=== PATIENT | female | born 1940 | race Caucasian/White ===

== ENCOUNTER 2017-07-20 13:07 | Inpatient (IN) | payer MEDICARE, OTHER ==
[~2017-07-20] VITALS: Ht 157.5 cm; Wt 56.7 kg
[~2017-07-20 13:07] MED LIST: ADVAIR HFA115 MCG/21 INH; ADVAIR INH; ALDACTONE50 MG PO; AMBIEN 10 MG TA10 MG PO; ASPIR 8181 M1 PO; AZITHROMYCIN 2250 MG PO; BACTRIM DS TAB1 EACH PO; HEALTHY HEART1 EAC1 PO; HYDROXYZINE HCL25 M1 PO; KLOR-CON 1010 MEQ PO; LASIX 40 MG TAB40 M2 PO; LEVAQUIN 500 M500 M2 PO; MAGNESIUM400 M1 PO; MAGOX 400400 MG PO; PREDNISONE 10 M10 MG PO; PROTONIX 20 MG20 M1 PO; PYRIDOXINE HCL100 MG PO; PYRIDOXINE HCL50 MG PO; ROXICODONE5 M2 PO; SPIRONOLACTONE50 MG PO; TYLENOL325 MG PO; VITAMIN D2000 UNIT PO; VITAMIN D3400 UNIT PO; ZESTRIL5 MG PO; ZOCOR5 MG PO; [UNRECOGNIZED DRUG - OTHER] PO; [UNRECOGNIZED DRUG - REMARK]
[2017-07-20 14:30] VITALS: BP 128/51
[2017-07-20 15:47] LABS: HEMATOCRIT 28.7 % (37.0-47.0); HEMOGLOBIN 8.8 gm/dL (12.0-15.0); MCH 20.4 pg (26.0-34.0); MCHC 30.8 g/dL (28.0-37.0); MCV 66.2 fL (80.0-100.0); MPV 6.5 fl. (7.2-11.1); NUCLEATED RBCS 0 /100WBC; PLATELET COUNT* 265 thou/uL (150-400); RBC 4.33 mil/uL (4.20-5.00); RDW-CV 20.1 % (10.5-14.5)
[2017-07-20 15:59] LABS: ABSOLUTE EOSINOPHILS 0.2 thou/uL (0.0-0.7); ABSOLUTE LYMPHOCYTES 0.8 thou/uL (0.8-5.3); ABSOLUTE MONOCYTES 1.4 thou/uL (0.0-1.2); ABSOLUTE NEUTROPHILS 9.5 thou/uL (1.6-8.1); ANISOCYTOSIS 1+; CLUMPED PLTS OCCASIONAL; HYPOCHROMASIA 2+; PLATELET ESTIMATE ADEQUATE; TOXIC GRANULATION 1+
[2017-07-20 16:00] LABS: MICROCYTES 3+
[2017-07-20 16:02] LABS: CALCIUM 9.2 mg/dL (8.5-10.1); CREATININE 0.8 mg/dL (0.6-1.3); POTASSIUM 4.3 mmol/L (3.5-5.1); TOTAL BILIRUBIN 0.4 mg/dL (<0.1-1.0); TOTAL PROTEIN 7.1 g/dL (6.4-8.2)
[2017-07-20] MEDS ORDERED: NEURONTIN 300300 M1 PO (16:17)
--- NOTE | 2017-07-20 16:57 | EKG ---
[place] [address] ELECTROCARDIOGRAM REPORT Name: CUCO ALEXANDER Room: [address] ADM IN .R.#: [id number] Admission: 07/20/17 Attend Phys: Patricio Cisneros MD Discharge: Date of : 42 Report #: [id number] THIS REPORT FOR: //name// [facility] Test Date: 2017-07-20 Test Time: 16:41:13 Pat Name: CUCO ALEXANDER Department: Room: [address] Gender: F Director Medical Writing: SAMANTHA : 1940 Requested By: Patricio Cisneros Order Number: [id number] Reading MD: Tyler Abdi Measurements Intervals [place] Rate: 134 P: 265 MD: 171 QRS: -35 QRSD: 73 T: 80 QT: 298 QTc: 445 Interpretive Statements Ectopic atrial tachycardia, unifocal Premature ventricular contractions Premature atrial contractions in short runs Left axis deviation Anterior infarct, old Compared to ECG 12/07/2016 18:36:20 Ventricular premature complex(es) now present Sinus tachycardia no longer present Myocardial infarct finding still present Electronically Signed On 07-20-2017 16:57:23 MANAGER DRUG SAFETY by Tyler Abdi [email or web address] <ELECTRONICALLY SIGNED> By: Tyler Abdi MD, FACC 07/20/17 1657 1641 164 Tyler Abdi MD, FACC /EPI
--- NOTE | 2017-07-20 18:00 | NUR ---
RECEIVED PT DIRECT ADMIT. ADMISSION ASSESSMENT COMPLETE. VSS. AFEBRILE. HOME MEDICATIONS UPDATED IN [place]. PREFERRED PHARMACY ENTERED. FLUIDS STARTED PER ORDERS. LEFT CHEST PORT ACCESSED. PT UP STAND BY TO BR. PT CALLS OUT APPROPRIATELY. PT REPORTS HAVING DECREASED APPETITED AND LOOSING ABOUT 13-14LBS. PT HAS STRESS INCONTINENCE. TRACING ST.
[2017-07-20 19:45] VITALS: BP 131/71
[2017-07-20 20:43] LABS: URINE BILIRUBIN NEGATIVE (Negative); URINE BLOOD NEGATIVE (Negative); URINE CLARITY CLEAR; URINE COLOR YELLOW; URINE GLUCOSE-RANDOM NEGATIVE (Negative); URINE KETONES NEGATIVE (Negative); URINE LEUKOCYTES-REFLEX NEGATIVE (Negative); URINE NITRITE-REFLEX NEGATIVE (Negative); URINE PROTEIN NEGATIVE (Negative); URINE SPECIFIC GRAVITY <= 1.005 (1.005-1.030); URINE UROBILINOGEN 0.2 E.U./dl (0.2-1.0)
[2017-07-21] VITALS: BP 92/52
[2017-07-21] MEDS ORDERED: AMBIEN 5 MG TABL5 M1 PO (02:58)
[2017-07-21 04:00] VITALS: BP 103/32
--- NOTE | 2017-07-21 04:17 | NUR ---
END SHIFT: PT RESTED WELL. NO PAIN. HAS BEEN TRACING ST ON MONITOR ALL SHIFT IN 110'S. HAS JUMPED UP INTO THE 140'S WHILE SLEEPING. SOME NAUSEA OVERNIGHT. ZOFRAN GIVEN WITH GOOD RESPONSE. PT C/O OF COUGHING AND SOA. VSS. PENDING STOOL CULTURE, CURRENTLY IN CONTACT ISO. SAFETY PRECAUTIONS IN PLACE. PERFORMED HOURLY ROUNDING. WILL CONT TO MONITOR.
[2017-07-21 05:56] LABS: ABSOLUTE BASOPHILS 0.1 thou/uL (0.0-0.2); ABSOLUTE EOSINOPHILS 0.1 thou/uL (0.0-0.7); ABSOLUTE LYMPHOCYTES 0.5 thou/uL (0.8-5.3); ABSOLUTE MONOCYTES 1.2 thou/uL (0.0-1.2); ABSOLUTE NEUTROPHILS 6.2 thou/uL (1.6-8.1); BASOPHILS 1.1 %; EOSINOPHILS 1.5 %; HEMATOCRIT 26.3 % (37.0-47.0); HEMOGLOBIN 8.1 gm/dL (12.0-15.0); LYMPHOCYTES 5.8 %; MCH 20.4 pg (26.0-34.0); MCHC 30.9 g/dL (28.0-37.0); MCV 65.8 fL (80.0-100.0); MONOCYTES 14.8 %; MPV 6.5 fl. (7.2-11.1); NUCLEATED RBCS 0 /100WBC; PLATELET COUNT* 254 thou/uL (150-400); POLYS 76.8 %; RBC 3.99 mil/uL (4.20-5.00); WBC 8.1 thou/uL (4.0-11.0)
[2017-07-21 06:06] LABS: CALCIUM 8.5 mg/dL (8.5-10.1); CREATININE 0.6 mg/dL (0.6-1.3); POTASSIUM 4.2 mmol/L (3.5-5.1)
[2017-07-21 16:38] VITALS: BP 108/63
--- NOTE | 2017-07-21 19:03 | NUR ---
ASSESSMENT COMPLETED REFER TO COMPUTER CHARTING. PATIENT RESTING IN ROOM. IV SALINE LOCKED. PATIENT ON ROOM AIR. BED IN LOW AND LOCKED POSITION. CALL LIGHT WITHIN REACH. PATIENT REPORTING NO PAIN, NAUSEA OR SHORTNESS OF BREATH. WILL CONTINUE TO MONITOR.
[2017-07-21 19:50] VITALS: BP 99/57
[2017-07-21 23:44] VITALS: BP 96/43
[2017-07-22 04:50] LABS: ABSOLUTE BASOPHILS 0.1 thou/uL (0.0-0.2); ABSOLUTE EOSINOPHILS 0.2 thou/uL (0.0-0.7); ABSOLUTE LYMPHOCYTES 0.8 thou/uL (0.8-5.3); ABSOLUTE MONOCYTES 1.1 thou/uL (0.0-1.2); BASOPHILS 0.7 %; EOSINOPHILS 2.6 %; HEMATOCRIT 26.5 % (37.0-47.0); HEMOGLOBIN 8.3 gm/dL (12.0-15.0); LYMPHOCYTES 10.8 %; MCH 20.6 pg (26.0-34.0); MCHC 31.5 g/dL (28.0-37.0); MCV 65.4 fL (80.0-100.0); MONOCYTES 15.6 %; MPV 6.7 fl. (7.2-11.1); NUCLEATED RBCS 0 /100WBC; PLATELET COUNT* 296 thou/uL (150-400); POLYS 70.3 %; RBC 4.05 mil/uL (4.20-5.00); RDW-CV 19.6 % (10.5-14.5)
[2017-07-22 04:59] LABS: CALCIUM 8.8 mg/dL (8.5-10.1); CREATININE 0.6 mg/dL (0.6-1.3)
--- NOTE | 2017-07-22 05:43 | NUR ---
END SHIFT: PT RESTED WELL. NO COMPLAINTS. NO PAIN. PT REPORTS LESS STOOLS OVERNIGHT. SAFETY PRECAUTIONS IN PLACE. PERFORMED HOURLY ROUNDING. WILL CONT TO MONITOR.
[2017-07-22 05:47] VITALS: BP 95/67
[2017-07-22 07:30] VITALS: BP 105/50
[2017-07-22 07:38] LABS: ABSOLUTE NEUTROPHILS 4.9 thou/uL (1.6-8.1); HYPOCHROMASIA 3+; MICROCYTES 2+; POLYCHROMASIA 2+
[2017-07-22] MEDS ORDERED: VANCOCIN 125 M125 M1 PO (10:51)
[2017-07-22 10:58] VITALS: BP 105/50
== END 2017-07-22 11:23 | disposition home or self-care (01) | DRG 371 ==
LOC: M.2W 13:07
PROVIDERS: ADMIT Internal Medicine
DX: A04.72 Enterocolitis due to Clostridium difficile, not specified as recurrent (principal); E43 Unspecified severe protein-calorie malnutrition; G93.41 Metabolic encephalopathy; E87.1 Hypo-osmolality and hyponatremia; R65.10 Systemic inflammatory response syndrome (SIRS) of non-infectious origin without acute organ dysfunction; I10 Essential (primary) hypertension; D64.9 Anemia, unspecified; C50.919 Malignant neoplasm of unspecified site of unspecified female breast; E86.0 Dehydration; F17.210 Nicotine dependence, cigarettes, uncomplicated; Z79.51 Long term (current) use of inhaled steroids; Z79.82 Long term (current) use of aspirin; Z90.710 Acquired absence of both cervix and uterus; Z68.22 Body mass index [BMI] 22.0-22.9, adult; Z90.49 Acquired absence of other specified parts of digestive tract; Z79.899 Other long term (current) drug therapy; Z85.118 Personal history of other malignant neoplasm of bronchus and lung; Z92.21 Personal history of antineoplastic chemotherapy; Z88.8 Allergy status to other drugs, medicaments and biological substances

== ENCOUNTER 2017-07-31 20:52 | Inpatient (IN) | payer MEDICARE, OTHER ==
[~2017-07-31] VITALS: Ht 157.5 cm; Wt 54.9 kg
[~2017-07-31 20:52] MED LIST changes: +AMBIEN 5 MG TABL5 M1 PO; +NEURONTIN 300300 M1 PO; +VANCOCIN 125 M125 M1 PO
[2017-07-31 21:00] VITALS: BP 102/72
[2017-07-31] MEDS ORDERED: FLAGYL500 MG PO (21:05)
[2017-07-31] MEDS ORDERED: MEDROL DOSPAK21 TA1 PO (21:05)
[2017-07-31 21:58] LABS: BE 3.5 mmol/L (-2 to +3); HCO3 27.2 mmol/L (22.0-26.0); PCO2 37.6 mmHg (35.0-45.0); PO2 72.5 mmHg (75.0-100.0); pH 7.477 (7.340-7.450)
[2017-07-31 22:15] LABS: HEMATOCRIT 26.9 % (37.0-47.0); HEMOGLOBIN 8.4 gm/dL (12.0-15.0); MCH 20.3 pg (26.0-34.0); MCHC 31.1 g/dL (28.0-37.0); MCV 65.3 fL (80.0-100.0); MPV 6.3 fl. (7.2-11.1); NUCLEATED RBCS 0 /100WBC; PLATELET COUNT* 357 thou/uL (150-400); RBC 4.12 mil/uL (4.20-5.00); RDW-CV 20.3 % (10.5-14.5); WBC 6.8 thou/uL (4.0-11.0)
[2017-07-31 22:23] LABS: ANION GAP 5 mmol/L (7-16); BUN 11 mg/dL (7-18); CALCIUM 8.4 mg/dL (8.5-10.1); CHLORIDE 98 mmol/L (98-107); CO2 31 mmol/L (21-32); CREATININE 0.7 mg/dL (0.6-1.3); GLUCOSE 124 mg/dL (70-99); POTASSIUM 4.1 mmol/L (3.5-5.1); SODIUM 134 mmol/L (136-145)
[2017-07-31 22:34] LABS: ALKALINE PHOSPHATASE 100 U/L (46-116); SGOT 24 U/L (15-37); SGPT 27 U/L (30-65); TOTAL BILIRUBIN 0.2 mg/dL (<0.1-1.0); TOTAL PROTEIN 6.4 g/dL (6.4-8.2); TROPONIN-I LEVEL <0.06 ng/mL (<0.06)
[2017-07-31 22:49] LABS: ABSOLUTE EOSINOPHILS 0.1 thou/uL (0.0-0.7); ABSOLUTE LYMPHOCYTES 0.7 thou/uL (0.8-5.3); ABSOLUTE MONOCYTES 0.3 thou/uL (0.0-1.2); ABSOLUTE NEUTROPHILS 5.6 thou/uL (1.6-8.1)
[2017-07-31 22:51] LABS: PLATELET ESTIMATE ADEQUATE
[2017-07-31 22:52] LABS: ANISOCYTOSIS 2+; HYPOCHROMASIA 3+; MICROCYTES 3+; OVALOCYTES Occasional
[2017-07-31 22:53] LABS: MACROCYTES Occasional
--- NOTE | 2017-07-31 23:49 | NUR ---
BACK FROM CAT SCAN.
[2017-08-01] VITALS (8 sets, daily range): BP systolic 100–135; BP diastolic 55–88
[2017-08-01] MEDS ORDERED: POTASSIUM20 PO (01:54)
--- NOTE | 2017-08-01 07:09 | NUR ---
REC PT FROM ED APPROX 0130, ST ON THE MONITOR, PT A/OX4, PT HAS HARD TIME STAYING ON ON SUBJECT WHILE TALKING AND DOING ADMIT, VSS, MEDS/ASSESSMENT PER CHARTING, FALL PRECAUTIIONS IN PLACE, PT IS FALL RISK REPORTING RECENT FALL AT HOME, PT UP WITH SBA TO BATHROOM, ONC-CONSULT COMPLETED, PT EDUCATED ON ROOM/FALL PRECAUIONS, PT STATED SHE WAS JUST HERE 2-3 WEEKS AGO AND WAS DX WITH C-DIFF, PT HANDED ME TWO PRESCIPTIONS, BOTH GIVEN TO HOUSE SUP WITH PT NAME TO BE STORED WITH PHARMACY, ISLOATION IN PLACE, WILL CONT TO MONITOR.
--- NOTE | 2017-08-01 08:38 | NUR ---
ASSUMED CARE OF PT THIS AM AROUND 0700. REFER TO ASSESSMENT. PT VOICES NO CONCERNS THIS AM. CURRENTLY ON 2L/NC AND REPORTS RA AT HOME. SATS 95%. TELE NOTED TO BE ST. PT REPORTS SOA IMPROVED. NO OTHER CONCERNS AT THIS TIME. CLWR. WCTM.
--- NOTE | 2017-08-01 13:53 | NUR ---
CM ASSESSMENT: Pt is A&O. Resides at home with her . Independent with ADLs, cooks, cleans and drives, when she wants to. Family assists as needed. No home o2. Pt has a walker and cane at home that she can use if needed. No hx of HH or SNF. Goal is to return home at mo. No needs anticipated.
--- NOTE | 2017-08-01 17:33 | NUR ---
PT SOMEWHAT PROGRESSING TOWARDS GOALS THIS SHIFT. PT REMAINS IN ST. DECREASED SOA AND ON RA MOST THIS SHIFT. VSS. NO OTHER CONCERNS AT THIS TIME. CLWR. WCTM.
[2017-08-02] VITALS: BP 108/81
--- NOTE | 2017-08-02 02:31 | NUR ---
PT A/OX4, ST, RA, WHEEZING NOTED, UP WITH SBA TO BATHROOM, PT WOULD GET UP WITHOUT ASKING FOR HELP, RE-EDUCATED PT MULTIPLE TIMES ON FALL PREVENTION AND USING CALL LIGHT, MEDS/ASSESSMENT PER CHARTING, HOURLY ROUNDING IN PLACE, AMBIEN GIVEN PER ORDERS, VSS, WILL CONT TO MONITOR.
[2017-08-02 04:00] VITALS: BP 90/53
[2017-08-02 06:04] LABS: HEMATOCRIT 26.2 % (37.0-47.0); HEMOGLOBIN 8.3 gm/dL (12.0-15.0); MCH 20.5 pg (26.0-34.0); MCHC 31.7 g/dL (28.0-37.0); MCV 64.6 fL (80.0-100.0); MPV 6.7 fl. (7.2-11.1); RBC 4.06 mil/uL (4.20-5.00); RDW-CV 20.1 % (10.5-14.5); WBC 3.7 thou/uL (4.0-11.0)
[2017-08-02 06:06] LABS: CALCIUM 8.5 mg/dL (8.5-10.1); CREATININE 0.6 mg/dL (0.6-1.3); MAGNESIUM 1.6 mg/dL (1.8-2.4); POTASSIUM 4.7 mmol/L (3.5-5.1)
[2017-08-02 08:00] VITALS: BP 89/53
--- NOTE | 2017-08-02 08:20 | NUR ---
RECEIVED REPORT. ASSUMED CARE OF PT AT 0730. PT A&O X4. VSS. O2 SAT 93% ON ROOM AIR. STRUCTURAL DESIGNER IN PLACE TRACING ST - PT ASYMPTOMATIC. AM ASSESSMENT AND VITALS COMPLETED CHARTED. LEFT CHEST PORT IN PLACE AND ASPIRATES FOR BLOOD. PT DENIES PAIN OR DISCOMFORT AT THIS TIME. PT STATES SHE SLEPT WELL LAST NIGHT AND HAS AN APPETITE FOR BREAKFAST. PT INFORMED OF PLAN OF CARE. PT COMMUNICATES UNDERSTANDING. PT IN ISOLATION FOR RECENT H/O CDIFF - PT HAS HAD NO LOOSE STOOLS YET THIS SHIFT. HIGH FALL RISK PRECAUTIONS IN PLACE. CALL LIGHT IS WITHIN REACH. WILL CONTINUE TO MONITOR.
[2017-08-02 12:07] VITALS: BP 113/73
[2017-08-02 16:00] VITALS: BP 125/55
--- NOTE | 2017-08-02 18:47 | NUR ---
VSS. PT REMAINS A&O X4. O2 SAT >90% ON ROOM AIR. PT CHANGED TO M/S STATUS. AUTOMOBILE RADIO REPAIRER REMOVED. LEFT CHEST PORT SALINE LOCKED. PT UP WITH STANDBY ASSIST TO THE BATHROOM - LOOSE STOOL X2. PT IMPULSIVE AT TIMES, AND DOES NOT ALWAYS WAIT FOR ASSISTANCE TO GET TO THE BATHROOM. PT SLOWLY PROGRESSING TOWARD GOALS. PT COUGHING MORE SHIFT PROGRESSED - SPUTUM SENT TO LAB. PT EATING AND DRINKING WITHOUT ISSUE; APPETITE IMPROVING. PT CONTINUES TO DENY PAIN OR DISCOMFORT. FIANCE AND SON VISITED THIS AFTERNOON. PT MAY DC TOMORROW. HIGH FALL RISK PRECAUTIONS IN PLACE. CALL LIGHT IS WITHIN REACH. HOULRY ROUNDING PERFORMED. WILL CONTINUE TO MONITOR FOR DURATION OF SHIFT.
[2017-08-02 20:00] VITALS: BP 108/60
[2017-08-03] VITALS: BP 114/59
--- NOTE | 2017-08-03 02:51 | NUR ---
NO ACUTE CHANGES WITH PT, A/OX4, RA, MED/SURG STATUS, MAG REPLACEMENT IN PLACE, UP SBA X1, PT DOES NOT UTILIZE CALL LIGHT OR ALLOW GAIT BELT, MEDS/ASSESSMENT PER CHARTING, HOURLY ROUNDING/FALL PRECAUTIONS IN PLACE, HEADACHE TREATED X1 WITH PAIN TO 0 WITH REASSESSMENT, VSS, WILL CONT TO MONITOR.
[2017-08-03 08:00] VITALS: BP 120/75
[2017-08-03] MEDS ORDERED: MAGIC MOUTHWASH SWISH&SPIT (09:06)
[2017-08-03] MEDS ORDERED: PREDNISONE 10 M10 MG PO (09:06)
[2017-08-03] MEDS ORDERED: Florastor 250MG CAPS PO (09:09)
--- NOTE | 2017-08-03 11:20 | NUR ---
ASSUMED CARE OF PT AT 0730. PT RESTING IN BED WAITING FOR BREAKFAST. PT A&0X4. PT DENIES ANY PAIN OR SHORTNESS OF BREATH AT THIS TIME. PT IN SPECIAL CONTACT ISOLATION FOR CDIFF. PT MEDICAL SURGICAL STATUS. PT ON RA SAT 96%. PT HAS PRODUCTIVE COUGH. SPUTUM PENDING. DIMINISHED, WHEEZES NOTED. PT RECEIVING BREATHING TREATMENTS. PT POSSIBLE DISCHARGE HOME TODAY. PT UP WITH 1 ASSIST SBA. AM ASSESSMENT CHARTED. MEDICATIONS PER AUG. PT REPOSITIONS SELF IN BED WITH REMINDERS. HOURLY ROUNDING OBSERVED. BED IN LOW POSITION. BED ALARM IN PLACE. FALL PRECAUTIONS IN PLACE. CALL LIGHT WITHIN REACH. WILL CONTINUE PLAN OF CARE.
[2017-08-03 12:24] VITALS: BP 120/75
--- NOTE | 2017-08-03 13:46 | NUR ---
DISCHARGE ORDERS RECEIVED. DISCHARGE INSTRUCTIONS, CARE NOTES, SCRIPTS AND FOLLOW UP APPTS GIVEN TO PT. PT COMMUNICATES UNDERSTANDING OF DISCHARE TEACHING. LEFT CHEST PORT DEACCESSED SUCCESSFULLY WITH 5 ML HEPARIN. PT MED SURG STATUS. PT DISCHARGED WITH ALL BELONGINGS, PAPERWORK AND HOME MEDICATIONS FROM PHARMACY VIA WHEELCHAIR WITH NURSING STAFF TO SPOUSE OWN PERSONAL VEHICLE.
== END 2017-08-03 13:50 | disposition home or self-care (01) | DRG 191 ==
LOC: M.ERS 20:52 → M.TBA-ER 08-01 00:30 → M.2W 08-01 00:30
PROVIDERS: Internal Medicine; Personal Emergency Response Attendant; ADMIT Internal Medicine
DX: J44.0 Chronic obstructive pulmonary disease with (acute) lower respiratory infection (principal); J80 Acute respiratory distress syndrome; R65.10 Systemic inflammatory response syndrome (SIRS) of non-infectious origin without acute organ dysfunction; A04.72 Enterocolitis due to Clostridium difficile, not specified as recurrent; J44.1 Chronic obstructive pulmonary disease with (acute) exacerbation; I10 Essential (primary) hypertension; J20.8 Acute bronchitis due to other specified organisms; K74.60 Unspecified cirrhosis of liver; R91.8 Other nonspecific abnormal finding of lung field; Z87.891 Personal history of nicotine dependence; Z85.3 Personal history of malignant neoplasm of breast; Z85.118 Personal history of other malignant neoplasm of bronchus and lung; Z90.49 Acquired absence of other specified parts of digestive tract; Z90.710 Acquired absence of both cervix and uterus; Z79.82 Long term (current) use of aspirin; Z79.51 Long term (current) use of inhaled steroids; Z79.899 Other long term (current) drug therapy; Z88.5 Allergy status to narcotic agent; Z88.8 Allergy status to other drugs, medicaments and biological substances

== ENCOUNTER 2017-08-08 13:22 | Emergency (ER) | payer MEDICARE, OTHER ==
[~2017-08-08] VITALS: Ht 154.9 cm; Wt 50.4 kg
[~2017-08-08 13:22] MED LIST changes: +FLAGYL500 MG PO; +Florastor 250MG CAPS PO; +MAGIC MOUTHWASH SWISH&SPIT; +MEDROL DOSPAK21 TA1 PO; +POTASSIUM20 PO
[2017-08-08 14:42] LABS: URINE BILIRUBIN NEGATIVE (Negative); URINE BLOOD TRACE (Negative); URINE CLARITY CLEAR; URINE COLOR YELLOW; URINE GLUCOSE-RANDOM NEGATIVE (Negative); URINE KETONES NEGATIVE (Negative); URINE LEUKOCYTES NEGATIVE (Negative); URINE NITRITE NEGATIVE (Negative); URINE PROTEIN NEGATIVE (Negative); URINE UROBILINOGEN 0.2 E.U./dl (0.2-1.0)
[2017-08-08 14:53] LABS: HEMATOCRIT 31.5 % (37.0-47.0); HEMOGLOBIN 9.7 gm/dL (12.0-15.0); MCH 20.2 pg (26.0-34.0); MCHC 30.8 g/dL (28.0-37.0); MCV 65.7 fL (80.0-100.0); MPV 8.2 fl. (7.2-11.1); NUCLEATED RBCS 0 /100WBC; PLATELET COUNT* 263 thou/uL (150-400); RBC 4.79 mil/uL (4.20-5.00); RDW-CV 20.5 % (10.5-14.5)
[2017-08-08 15:00] LABS: CALCIUM 8.9 mg/dL (8.5-10.1); CREATININE 0.8 mg/dL (0.6-1.3); POTASSIUM 4.4 mmol/L (3.5-5.1)
[2017-08-08 15:05] LABS: ALBUMIN 3.4 g/dL (3.4-5.0); TOTAL BILIRUBIN 0.4 mg/dL (<0.1-1.0); TOTAL PROTEIN 6.6 g/dL (6.4-8.2)
[2017-08-08 15:12] LABS: ABSOLUTE LYMPHOCYTES 0.3 thou/uL (0.8-5.3); ABSOLUTE MONOCYTES 0.2 thou/uL (0.0-1.2); ABSOLUTE NEUTROPHILS 7.4 thou/uL (1.6-8.1); ANISOCYTOSIS 2+; HYPOCHROMASIA 2+; MICROCYTES 2+; PLATELET ESTIMATE ADEQUATE
[2017-08-08 15:50] VITALS: BP 144/68
--- NOTE | 2017-08-08 17:46 | EKG ---
[place] [address] ELECTROCARDIOGRAM REPORT Name: CUCO ALEXANDER Room: [facility]#: [id number] Admission: 08/08/17 Attend Phys: Discharge: 08/08/17 Date of : 42 Report #: [id number] THIS REPORT FOR: //name// [facility] ED Test Date: 2017-08-08 Test Time: 14:13:25 Pat Name: CUCO ALEXANDER Department: Room: Gender: F Mottler Machine Feeder: OG : 1940 Requested By: Karen Parker Order Number: [id number] MD: Vick Raygoza Measurements Intervals [place] Rate: 102 P: -51 MN: 155 QRS: -22 QRSD: 76 T: 55 QT: 360 QTc: 469 Interpretive Statements Sinus tachycardia with pac's Borderline left axis deviation Anterior infarct, old Compared to ECG 07/20/2017 16:41:13 Ventricular premature complex(es) no longer present Myocardial infarct finding still present Electronically Signed On 08-08-2017 17:46:40 MOLDER FOAM RUBBER by Vick Raygoza [email or web address] <ELECTRONICALLY SIGNED> By: Vick Raygoza MD, [facility] 08/08/17 1746 1413 1413 Vick Raygoza MD, [facility] /EPI
== END 2017-08-08 15:50 | disposition home or self-care (01) ==
LOC: M.ERS 13:22
PROVIDERS: Physician Assistant
DX: D64.89 Other specified anemias (principal); R20.2 Paresthesia of skin; I10 Essential (primary) hypertension; Z90.710 Acquired absence of both cervix and uterus; Z98.890 Other specified postprocedural states; Z85.118 Personal history of other malignant neoplasm of bronchus and lung; Z85.3 Personal history of malignant neoplasm of breast; Z88.5 Allergy status to narcotic agent; Z88.8 Allergy status to other drugs, medicaments and biological substances; Z87.891 Personal history of nicotine dependence

== ENCOUNTER → 2017-08-16 | Day surgery (SDC) | payer MEDICARE, OTHER ==
[2017-08-16 09:39] LABS: HEMATOCRIT 26.4 % (37.0-47.0); MCH 20.5 pg (26.0-34.0); MCHC 30.3 g/dL (28.0-37.0); MCV 67.4 fL (80.0-100.0); MPV 8.3 fl. (7.2-11.1); RBC 3.92 mil/uL (4.20-5.00); RDW-CV 20.6 % (10.5-14.5); WBC 5.1 thou/uL (4.0-11.0)
[2017-08-16 09:46] LABS: CALCIUM 8.3 mg/dL (8.5-10.1); CREATININE 0.7 mg/dL (0.6-1.3); POTASSIUM 3.9 mmol/L (3.5-5.1)
[2017-08-16 09:51] LABS: ALBUMIN 2.9 g/dL (3.4-5.0); TOTAL BILIRUBIN 0.5 mg/dL (<0.1-1.0); TOTAL PROTEIN 5.7 g/dL (6.4-8.2)
--- NOTE | 2017-08-16 17:17 | EKG ---
[place] [address] ELECTROCARDIOGRAM REPORT Name: CUCO ALEXANDER Room: [facility]#: [id number] Admission: 08/16/17 Attend Phys: Joe Solano Discharge: Date of : 42 Report #: [id number] THIS REPORT FOR: //name// [facility] Test Date: 2017-08-16 Test Time: 09:00:50 Pat Name: CUCO ALEXANDER Department: Room: Gender: F Pipe Assembly Worker: : 1940 Requested By: Joe Solano Order Number: [id number] Lilian MD: Tyler Abdi Measurements Intervals [place] Rate: 100 P: 78 FL: 163 QRS: -1 QRSD: 78 T: 81 QT: 324 QTc: 418 Interpretive Statements Sinus tachycardia Multiple premature complexes, vent & supraven Anteroseptal infarct, old Compared to ECG 08/08/2017 14:13:25 No significant changes Electronically Signed On 08-16-2017 17:17:30 POLITICAL ADVISOR by Tyler Abdi [email or web address] <ELECTRONICALLY SIGNED> By: Tyler Abdi MD, [facility] 08/16/17 1717 09 09 Tyler Abdi MD, [facility] /EPI
--- NOTE | 2017-08-21 11:46 | H ---
[place] [address] HISTORY AND PHYSICAL Name: CUCO ALEXANDER Room: [facility]#: [id number] Admission: 08/16/17 Attend Phys: Joe Solano Discharge: Date of : 42 Report #: [id number] THIS REPORT FOR: //name// CC: Leonidas Alston DATE OF SERVICE: 08/16/2017 CHIEF COMPLAINT: Abdominal pain. HISTORY OF PRESENT ILLNESS: This is a pleasant 77-year-old woman who has had a ventral hernia for quite some time. This started when she had a TRAM procedure for breast reconstruction many years ago. She also had a hysterectomy. She has developed a bulge in the right lower quadrant of her abdomen. She has pain that is sharp, stabbing, nonradiating. PAST MEDICAL HISTORY: Significant for hypertension, past history of breast cancer, gastroesophageal reflux disease. SOCIAL HISTORY: No tobacco or alcohol use. ALLERGIES: LISTED AND REVIEWED IN THE CHART AND THEY INCLUDE MORPHINE, HYDROCHLOROTHIAZIDE ENTRY AND TRIAMTERENE. MEDICATIONS: Aspirin, gabapentin, hydroxyzine, metronidazole, Protonix, potassium, zolpidem, Advair. REVIEW OF SYSTEMS: Twelve point review of systems negative except for those in the HPI. PHYSICAL EXAMINATION: GENERAL: She is awake, alert, in no acute distress. HEENT: Extraocular movements intact. Sclerae without icterus. NECK: Supple. CARDIOVASCULAR: Regular rate and rhythm. CHEST: Fair air movement bilaterally. ABDOMEN: Soft. She has a fairly large bulge in the right lower quadrant of her abdomen. This is reducible. EXTREMITIES: Without clubbing, cyanosis or edema. NEUROLOGIC: Grossly intact. SKIN: Without rash or jaundice. ASSESSMENT AND PLAN: A 77-year-old woman with a ventral incisional hernia. We will plan for laparoscopic repair with mesh. Nature of the procedure, risks and benefits were discussed with the patient. She requested to proceed. [facility] [place] [address] HISTORY AND PHYSICAL Name: CUCO ALEXANDER Room: [facility]#: [id number] Admission: 08/16/17 Attend Phys: Joe Solano Discharge: Date of : 42 Report #: [id number] the risks discussed included infection, bleeding, damage to surrounding structures, damage to underlying bowel. Fully informed, she consented to the procedure. <ELECTRONICALLY SIGNED> By: oJe Solano MD 08/21/17 1146 1359 1411Joe Solano MD /nt
--- NOTE | 2017-08-21 11:46 | PROC ---
[facility] [address] [place] [address] PROCEDURE REPORT Name: CUCO ALEXANDER Room: [facility]#: [id number] Admission: 08/16/17 Attend Phys: Joe Solano Discharge: Date of : 42 Report #: [id number] THIS REPORT FOR: //name// CC: Leonidas Alston DATE OF SERVICE: 08/16/2017 PREOPERATIVE DIAGNOSIS: Ventral incisional hernia. POSTOPERATIVE DIAGNOSIS: Ventral incisional hernia. PROCEDURE: Diagnostic laparoscopy with lysis of adhesions. SURGEON: Dr. Joe Solano. ANESTHESIA: General. ESTIMATED BLOOD LOSS: Minimal. SPECIMENS: None. DESCRIPTION OF PROCEDURE: After informed consent was obtained, the patient was brought to the operating room and placed supine. SCDs were placed and working. Preoperative antibiotics were administered, general anesthesia was induced. The abdomen was prepped and draped in the usual sterile fashion. A 5 mm incision was made in the left upper quadrant. A 5 mm trocar was placed under direct vision. Pneumoperitoneum was established. Two left-sided 5 mm ports were placed under direct vision. I first began by inspecting the right lower quadrant. She had a significant amount of adherent small bowel in the area. It had become very fused with the hernia sac. I did performed lysis of some adhesions around the area. This made it very evident that the small bowel was so encased in the hernia sac that it would be very dangerous to try to take that down from the hernia sac. At this point, I elected to not try to undergo any removal of the bowel as this could have led to bowel injury. The ports were then removed under direct vision. The skin incisions were closed with 4-0 Monocryl. Incisions were sealed with Dermabond. COMPLICATIONS: [place] [address] PROCEDURE REPORT Name: CUCO ALEXANDER Room: [facility]#: [id number] Admission: 08/16/17 Attend Phys: Joe Solano Discharge: Date of : 42 Report #: [id number] DISPOSITION: The patient was taken to recovery in satisfactory condition. <ELECTRONICALLY SIGNED> By: Joe Solano MD 08/21/17 1146 1401 2052Joe Solano MD /nt
== END | disposition home or self-care (01) ==
LOC: M.SUR 08:47
PROVIDERS: Surgery
DX: K43.2 Incisional hernia without obstruction or gangrene (principal); I10 Essential (primary) hypertension; K21.9 Gastro-esophageal reflux disease without esophagitis; Z88.8 Allergy status to other drugs, medicaments and biological substances; Z85.3 Personal history of malignant neoplasm of breast; Z79.899 Other long term (current) drug therapy; Z90.710 Acquired absence of both cervix and uterus; Z98.890 Other specified postprocedural states; K66.0 Peritoneal adhesions (postprocedural) (postinfection)

== ENCOUNTER 2018-09-20 15:32 | Inpatient (IN) | payer MEDICARE, OTHER ==
[~2018-09-20] VITALS: Ht 154.9 cm; Wt 60.4 kg
[2018-09-20 15:37] VITALS: BP 116/81
[2018-09-20] MEDS ORDERED: COMBIVENT INH (15:44)
[2018-09-20] MEDS ORDERED: PREDNISONE 10 M10 MG PO (15:45)
[2018-09-20] MEDS ORDERED: REMERON15 MG PO (15:45)
[2018-09-20] MEDS ORDERED: SPIRONOLACTONE25 M1 PO (15:46)
[2018-09-20] MEDS ORDERED: COMPAZINE10 MG PO (15:46)
[2018-09-20 16:22] LABS: BE 2.1 mmol/L (-2 to +3); PCO2 47.1 mmHg (35.0-45.0); pH 7.387 (7.340-7.450)
[2018-09-20 16:24] LABS: PO2 47.1 mmHg (75.0-100.0)
[2018-09-20 16:28] LABS: HEMATOCRIT 35.4 % (37.0-47.0); HEMOGLOBIN 11.7 gm/dL (12.0-15.0); MCH 25.7 pg (26.0-34.0); MCV 78.1 fL (80.0-100.0); MPV 7.2 fl. (7.2-11.1); NUCLEATED RBCS 0 /100WBC; PLATELET COUNT* 102 thou/uL (150-400); RBC 4.53 mil/uL (4.20-5.00); WBC 10.2 thou/uL (4.0-11.0)
[2018-09-20 16:39] LABS: APTT 32.2 Seconds (25.0-31.3); INR 1.1; PROTIME 11.1 Seconds (9.20-11.50)
[2018-09-20 16:53] LABS: ALBUMIN 3.4 g/dL (3.4-5.0); ALKALINE PHOSPHATASE 107 U/L (46-116); ANION GAP 7 mmol/L (7-16); BUN 11 mg/dL (7-18); CALCIUM 8.1 mg/dL (8.5-10.1); CHLORIDE 91 mmol/L (98-107); CO2 32 mmol/L (21-32); CREATININE 0.8 mg/dL (0.6-1.3); GLUCOSE 121 mg/dL (70-99); LIPASE 55 U/L (73-393); NT-PRO BRAIN NAT PEPTIDE 2154 pg/mL (<300); POTASSIUM 4.5 mmol/L (3.5-5.1); SGOT 47 U/L (15-37); SGPT 39 U/L (30-65); SODIUM 130 mmol/L (136-145); TOTAL BILIRUBIN 0.8 mg/dL (<0.1-1.0); TOTAL PROTEIN 6.8 g/dL (6.4-8.2); TROPONIN-I LEVEL <0.06 ng/mL (<0.06)
[2018-09-20 17:20] LABS: ABSOLUTE LYMPHOCYTES 0.4 thou/uL (0.8-5.3); ABSOLUTE MONOCYTES 0.6 thou/uL (0.0-1.2); ABSOLUTE NEUTROPHILS 9.2 thou/uL (1.6-8.1); PLATELET ESTIMATE ADEQUATE
[2018-09-20 18:05] VITALS: BP 116/81
[2018-09-20 18:28] VITALS: BP 96/52
--- NOTE | 2018-09-20 19:04 | NUR ---
vss, assumed care of pt from er, placed pt on monitor, on 3l nc and she is up with one, call light in reach, denies any pain and or any concerns at this time, will follow with plan of care and shift report.
[2018-09-20 20:35] VITALS: BP 117/55
[2018-09-21] VITALS: BP 130/63
[2018-09-21 03:58] VITALS: BP 109/60
--- NOTE | 2018-09-21 05:54 | NUR ---
PT IS ABLE TO COMMUNICATE HER NEEDS TO STAFF WITH ONLY MINOR DIFFICULTY; SHE IS VMDX-DT-MBSOUTV AND FORGETFUL AT TIMES. SHE HAS DENIED THE NEED FOR PAIN MEDICATION UP TO THIS TIME. LEFT CHEST PORT ACCESSED AND PATENT.
[2018-09-21 07:53] VITALS: BP 107/47
--- NOTE | 2018-09-21 11:08 | EKG ---
[place] [address] ELECTROCARDIOGRAM REPORT Name: CUCO ALEXANDER Room: [address] ADM IN .R.#: [id number] Admission: 09/20/18 Attend Phys: Taylor Niño Discharge: Date of : 42 Report #: [id number] THIS REPORT FOR: //name// [facility] ED Test Date: 2018-09-20 Test Time: 15:36:25 Pat Name: CUCO ALEXANDER Department: Room: [facility] Gender: F Software Design Analyst: TP` : 1940 Requested By: Leslie Rogers Order Number: [id number] MD: Vick Raygoza Measurements Intervals [place] Rate: 134 P: 78 FL: 149 QRS: -46 QRSD: 76 T: 77 QT: 281 QTc: 420 Interpretive Statements Sinus tachycardia Left anterior fascicular block Anterior infarct, old Nonspecific T abnormalities, lateral leads Baseline wander in lead(s) V1,V2 Compared to ECG 08/16/2017 09:00:50 Myocardial infarct finding still present Electronically Signed On 09-21-2018 11:08:00 CDT by Vick Raygoza [email or web address] <ELECTRONICALLY SIGNED> By: Vick Raygoza MD, FACC 09/21/18 1108 1536 1536 Vick Raygoza MD, FAC /EPI
[2018-09-21 12:05] VITALS: BP 110/47
[2018-09-21 16:33] VITALS: BP 133/50
--- NOTE | 2018-09-21 17:20 | NUR ---
PATIENT PROGRESSING TOWARDS GOALS. AOX4, BUT VERY FORGETFUL. BOYFRIEND AND FRIEND PRESENT TODAY. UPDATED ON CARE PLAN. 4L NC. VOIDING PER BATHROOM. DID HAVE TWO EPISODES OF INCONTINENCE WHILE AMBULATING TO BATHROOM WITH NURSING STAFF. BEDSIDE COMMODE PROVIDED. HYGIENE PROVIDED. VITALS REMAINED WNL. PATIENT DENIES NEW CONCERNS ABOUT CARE PLAN.
[2018-09-21 20:57] VITALS: BP 105/84
[2018-09-22] VITALS: BP 160/50
[2018-09-22 04:00] VITALS: BP 165/58
--- NOTE | 2018-09-22 08:10 | NUR ---
PT IS ABLE TO COMMUNICATE HER NEEDS TO STAFF EFFECTIVELY. SHE HAS DENIED THE NEED FOR PAIN MEDICATION UP TO THIS TIME. PT IMPULSIVE; BED ALARM ON. LEFT CHEST PORT CATH PATENT.
[2018-09-22 08:15] VITALS: BP 154/71
[2018-09-22 12:35] VITALS: BP 124/62
[2018-09-22 14:04] LABS: ABSOLUTE BASOPHILS 0.1 thou/uL (0.0-0.2); ABSOLUTE LYMPHOCYTES 0.2 thou/uL (0.8-5.3); ABSOLUTE MONOCYTES 0.6 thou/uL (0.0-1.2); ABSOLUTE NEUTROPHILS 10.1 thou/uL (1.6-8.1); BASOPHILS 0.9 %; HEMATOCRIT 35.7 % (37.0-47.0); HEMOGLOBIN 11.4 gm/dL (12.0-15.0); LYMPHOCYTES 1.7 %; MCH 25.5 pg (26.0-34.0); MCV 79.6 fL (80.0-100.0); MONOCYTES 5.7 %; MPV 6.9 fl. (7.2-11.1); NUCLEATED RBCS 0 /100WBC; PLATELET COUNT* 149 thou/uL (150-400); POLYS 91.7 %; RBC 4.48 mil/uL (4.20-5.00); RDW-CV 16.1 % (10.5-14.5)
[2018-09-22 14:16] LABS: ALBUMIN 3.2 g/dL (3.4-5.0); CALCIUM 8.5 mg/dL (8.5-10.1); CREATININE 0.7 mg/dL (0.6-1.3); POTASSIUM 5.8 mmol/L (3.5-5.1); TOTAL BILIRUBIN 0.3 mg/dL (<0.1-1.0); TOTAL PROTEIN 6.9 g/dL (6.4-8.2)
--- NOTE | 2018-09-22 16:09 | NUR ---
ASSUMED PATIENT CARE VERBAL REPORT GIVEN PATIENT SEEN IN RM RESTING IN BED
[2018-09-22 16:28] VITALS: BP 137/79
[2018-09-22 20:33] VITALS: BP 132/61
[2018-09-23] VITALS: BP 152/76
[2018-09-23 04:00] VITALS: BP 126/106
--- NOTE | 2018-09-23 06:01 | NUR ---
PT IS ABLE TO COMMUNICATE HER NEEDS TO STAFF WITH MINOR DIFFICULTY; SHE IS [id number]-TC-LUQSUDR AND SOMETIMES CONFUSED. SHE HAS DENIED THE NEED FOR PAIN MEDICATION UP TO THIS TIME. LEFT CHEST PORT PATENT.
[2018-09-23 08:00] VITALS: BP 141/108; BP 141/74
--- NOTE | 2018-09-23 10:42 | NUR ---
ASSUMED PT CARE AT 0730, LYING IN BED, AOX4, CONFUSED, ANXIOUS, DENIES PAIN. SBA O2 SAT 90'S NC 3L. TRACING SR ON EDI CONSULTANT. LAST BM THIS AM, ROUND AND SOFT ABDOMEN. CRACKLES, WHEEZES NOTED, S1-S2 NORMAL, TACHY AT TIMES. CHEST PORT INTACT. ENCOURAGE DEEP BREATHING, FALL PRECAUTION, BED ALARM. PT USES COMMODE. VSS, AM ASSESSMENT CHARTED. MEDS PER AUG. HOURLY ROUNDING OBSERVED, REPOSITON SELF, CALL LIGHT WITHING REACH. WILL CONTINUE TO MONITOR.
[2018-09-23 12:55] VITALS: BP 139/66
--- NOTE | 2018-09-23 13:36 | NUR ---
Pt is A&O. Resides at home with her SO. Independent. No DME. No hx of HH or SNF. Pt has a walker and cane at home that she can use when needed. Goal is home at al. Following
--- NOTE | 2018-09-23 14:11 | NUR ---
Nutrition: Pt assessed for high BMI. Wt is recorded today as 235#. Usual kwabena, and wt recently, is ~116#. Please reweigh for accuracy. Otherwise, pt appears at low nutrition risk. Admitted with SOA. Hx, labs, RX noted.
[2018-09-23 16:28] VITALS: BP 122/88
--- NOTE | 2018-09-23 18:03 | NUR ---
PT AOX3, IMPULSIVE, ANXIOUS. SBA, BED ALARM. REMINDED TO USE CALL LIGHT. USES COMMODE. FAMILY CAME TO VISIT. HAD BM 3X TODAY. TIRATE O2- 2L. DC TELE . IV INTACT AT L SUBCLAVIAN.COUGHING AND WHEEZE NOTED. HOURLY ROUNDING, BED IN LOW POSITION, FALL PRECAUTION. VSS, CHARTED, MEDS GIVEN PER MAR. WILL CONTINUE TO MONITOR
--- NOTE | 2018-09-23 19:39 | NUR ---
THIS RN HAS REVIEWED AND AGREES WITH THE ASSESMENT AND CHARTING OF MICHELLE RN ON 09/23/18. PT IS CONFUSED AT TIMES, BED ALARM ON, PT DOES NOT USE CALL LIGHT FOR ASSIST, PT TO BE MOVED CLOSER TO NURSES STATION WHEN ROOM IS AVAILABLE. REPORT GIVEN TO LORAINE CARTY
[2018-09-23 20:00] VITALS: BP 154/74
--- NOTE | 2018-09-24 02:23 | NUR ---
PT ALERT, CONFUSED, IMPULSIVE. FREQUENT ATTEMPTS TO GET OOB. PO ATIVAN GIVEN TWICE WITH GOOD RESULTS. O2 AT 1 LITER NC. DENIES PAIN. UP TO BSC. PT HAS URGENCY AND SOME INCONT,
[2018-09-24 04:33] VITALS: BP 161/61
[2018-09-24 08:00] VITALS: BP 170/95
--- NOTE | 2018-09-24 09:42 | NUR ---
ASSUMED PT CARE AT 0730, LYING IN BED, LETHARGIC, A0X3 PT COMPLAINS OF BACK PAIN. PT GOAL IS TO TITRATE O2, FREE FROM FALL.PT O2 SAT 94% NC 2L. MED/SURG, SBA, USES COMMODE. PT IV ACCESS INTACT, ABDOMEN SOFT, ROUND, LAST BM 09/23/18. CRACKES, WHEEZE NOTED. FALL PRECAUTION, BED ALARM, VSS, AM ASSESSMENT CHARTED, MEDS GIVEN PER MAR. REMINDED TO USE CALL LIGHT, HOURLY ROUNDING OBSERVED, WILL CONTINUE TO MONITOR.
[2018-09-24 16:22] VITALS: BP 123/63
--- NOTE | 2018-09-24 18:37 | NUR ---
PT VSS, ASSESSMENT CHARTED, MEDS GIVEN PER AUG, FALL PRECAUTION, O2 TITRATE, O2 SAT AT 90'S 2L NC, MED/SURG. SBA, USE GAIT BELT, BED ALARM. PT HAD CHEST XRAY. HOURLY ROUNDING. PT USES COMMODE. PT REMINDED TO USE CALL LIGHT, WILL CONTINUE TO MONITOR.
--- NOTE | 2018-09-24 18:48 | NUR ---
I HAVE REVIWED AND AGREE WITH THE ASSESMENT AND NOTES OF MICHELLE CARTY
[2018-09-24 20:00] VITALS: BP 172/84
[2018-09-25] VITALS: BP 160/78
--- NOTE | 2018-09-25 03:44 | NUR ---
ASSUMED PT CARE @ 1930. PT ORIENTED TO SELF AND PLACE- SOMETIMES SITUATION. MASS NOTED ON FRONT OF THE NECK TO THE THE LEFT OF THE MIDLINE. PT HAS BEEN CONFUSED A LITTTLE AT THE BEGINNING OF THE SHIFT BUT HAS BEEN CALLING OUT APPROPRIATELY MOST OF SHIFT. CONTINENT-USING BEDSIDE COMMODE. SOA WITH EXERTION (TO COMMODE). PT FINALLY ABLE TO FALL ASLEEP. CALL LIGHT IN REACH. HOURLY ROUNDING FOR SAFETY.
[2018-09-25 05:27] LABS: HEMATOCRIT 33.7 % (37.0-47.0); MCH 25.4 pg (26.0-34.0); MCHC 32.6 g/dL (28.0-37.0); MCV 78.1 fL (80.0-100.0); RBC 4.31 mil/uL (4.20-5.00); RDW-CV 15.7 % (10.5-14.5); WBC 4.5 thou/uL (4.0-11.0)
[2018-09-25 05:41] LABS: ANION GAP < 0 mmol/L (7-16); BUN 17 mg/dL (7-18); CHLORIDE 95 mmol/L (98-107); CO2 42 mmol/L (21-32); CREATININE 0.8 mg/dL (0.6-1.3); GLUCOSE 85 mg/dL (70-99); MAGNESIUM 1.3 mg/dL (1.8-2.4); POTASSIUM 4.4 mmol/L (3.5-5.1); SODIUM 136 mmol/L (136-145)
[2018-09-25 08:00] VITALS: BP 136/59
--- NOTE | 2018-09-25 10:15 | NUR ---
ASSUMED CARE OF PATIENT. PLEASE SEE DOCUMENTED ASSESSMENT. PT IS MED/SURG STATUS ON THE TELEMETRY FLOOR. PT IS SOMNALENT BUT AROUSEABLE
--- NOTE | 2018-09-25 11:30 | NUR ---
PATIENT IS IMPULSIVE AND GETS UP WITHOUT USING CALL LIGHT. CHAIR ALARM ON
[2018-09-25 11:55] VITALS: BP 126/64
[2018-09-25 12:26] LABS: BE 11.8 mmol/L (-2 to +3)
[2018-09-25 12:31] LABS: PCO2 72.9 mmHg (35.0-45.0); PO2 56.4 mmHg (75.0-100.0)
--- NOTE | 2018-09-25 12:39 | NUR ---
ABG'S TO DR CHOWDHURY. TO START BIPAP.ORDERS NOTED
--- NOTE | 2018-09-25 12:59 | NUR ---
TO CT PER WHEELCHAIR
--- NOTE | 2018-09-25 17:26 | NUR ---
1600 ABG NOT DONE AT THIS TIME PT PULLED OFF OF BIPAP TO GET TO BSC FOR BM.PT DOES NOT USE CALL LIGHT. PLACED IN CHAIR FOR MEAL PER PT REQUEST
--- NOTE | 2018-09-25 17:28 | NUR ---
PATIENT WITH MINIMAL PROGRESS TOWARDS GOALS. ORIENTED TO PERSON AND PLACE ONLY. IMPULSIVE. DENIES PAIN. POOR APPETITE BUT FEEDS SELF. VSS. PLACED ON BIPAP TODAY POST ABG. USES PRN OR IS IN 5LPM HIGH FLOW CANNULA. CT HEAD COMPLETED. SON VISITED.
[2018-09-25 20:00] VITALS: BP 110/50
[2018-09-26] VITALS (8 sets, daily range): BP systolic 86–167; BP diastolic 42–89
--- NOTE | 2018-09-26 04:51 | NUR ---
ASSUMED PT CARE @ 1930. DISCUSSED PT'S CONDITION AND MED ROUTINE WITH DAUGHTER WHO WAS AT BEDSIDE DURING [facility]. DAUGHTER STATED SHE WOULD BRING PT'S CHEMO MEDS FROM HOME SO WE COULD GET PT RESTARTED ON THE REST OF HER MEDICATION. ALERT TO SELF AND PLACE. SOA WITH EXERTION. PT NEEDS FREQUENT REMINDER TO WEAR O2/BIPAP. PT ABLE TO KEEP IT ON LONGER AND RELAX WITH PRN ATIVAN. GIVEN X 2 THIS SHIFT. PT UP TO COMMODE WITH ONE ASSIST. FORGETS TO USE CALL LIGHT MOST OF THE TIME. BED ALARM ON, ROOM ACCROSS FROM PRIMARY NURSE AT NURSE'S STATION, AND FREQUENT ROUNDING FOR SAFETY.
[2018-09-26 04:58] LABS: HEMATOCRIT 29.9 % (37.0-47.0); HEMOGLOBIN 9.8 gm/dL (12.0-15.0); MCH 25.9 pg (26.0-34.0); MCHC 32.8 g/dL (28.0-37.0); MCV 78.9 fL (80.0-100.0); MPV 7.1 fl. (7.2-11.1); RBC 3.79 mil/uL (4.20-5.00); RDW-CV 15.5 % (10.5-14.5); WBC 2.8 thou/uL (4.0-11.0)
[2018-09-26 05:39] LABS: ALBUMIN 2.8 g/dL (3.4-5.0); CALCIUM 8.6 mg/dL (8.5-10.1); CREATININE 0.6 mg/dL (0.6-1.3); MAGNESIUM 1.7 mg/dL (1.8-2.4); POTASSIUM 5.1 mmol/L (3.5-5.1); TOTAL BILIRUBIN 0.3 mg/dL (<0.1-1.0); TOTAL PROTEIN 5.8 g/dL (6.4-8.2)
--- NOTE | 2018-09-26 08:00 | NUR ---
ASSUMED PT CARE AT 0700, PT LYING IN BED, VSS, 96% 5LPM, REMAINS MED SURG AT THIS DUNCAN. LETHARGIC. INCONT OF B&B, UP WITH ASSIST X2 AND GB. PT PLACED BACK ON BIPAP, DAUGHTER AT BEDSIDE. WILL CONT TO MONITOR.
[2018-09-26 10:10] LABS: BE 12.8 mmol/L (-2 to +3); pH 7.354 (7.340-7.450)
[2018-09-26 10:20] LABS: PCO2 75.8 mmHg (35.0-45.0); PO2 149.2 mmHg (75.0-100.0)
--- NOTE | 2018-09-26 10:20 | NUR ---
CRITICAL ABG'S CALLED IN TO DR CHOWDHURY, PT TO REMAIN ON BIPAP, ABG AT NOON, CALL WITH RESULTS. PT REMAINS LETHARGIC, VSS. PT TO MOVE TO ICU IF NO IMPROVEMENT WITH NOON LABS.
[2018-09-26 11:14] LABS: HEMATOCRIT 31.4 % (37.0-47.0); HEMOGLOBIN 10.2 gm/dL (12.0-15.0); MCH 25.7 pg (26.0-34.0); MCHC 32.4 g/dL (28.0-37.0); MCV 79.4 fL (80.0-100.0); RBC 3.96 mil/uL (4.20-5.00); RDW-CV 15.5 % (10.5-14.5); WBC 3.7 thou/uL (4.0-11.0)
--- NOTE | 2018-09-26 12:00 | NUR ---
PT TO BE MOVED TO ICU D/T AMS, CRITICAL ABG'S. PT IS MINIMALLY RESPONSIVE SIDPITE STERNAL RUB, VSS, REMAINS ON BIPAP WITH SPO2 OF 96% WITH AN FI02 OF 50. REPORT GIVEN, PT PLACED ON TUGBOAT DISPATCHER AND TRANSPORTED VIA BED BY THIS NURSE, RT, AND TECH.
[2018-09-26 12:26] LABS: BE 12.9 mmol/L (-2 to +3); PO2 80.3 mmHg (75.0-100.0); pH 7.383 (7.340-7.450)
[2018-09-26 12:30] LABS: PCO2 69.7 mmHg (35.0-45.0)
--- NOTE | 2018-09-26 15:25 | CON ---
[address] [address] CONSULTATION Name: CUCO ALEXANDER Room: [address] IN .R.#: [id number] Admission: 09/20/18 Attend Phys: Taylor Niño Discharge: Date of : 42 Report #: [id number] THIS REPORT FOR: //name// CC: FERMÍN Aguero DATE OF SERVICE: 09/25/2018 The patient is located in room 203. ATTENDING PHYSICIAN: Dr. Mindy Coley. PRIMARY CARE PHYSICIAN: Dr. Fermín Morton. ONCOLOGIST. Titus Pearson MD. INDICATION FOR CONSULTATION: Hypercarbic respiratory failure, COPD, emphysema with wheezing, bronchospasm. CLINICAL SUMMARY: The patient is a 78-year-old female, a remote smoker, with severe COPD. She is oxygen dependent at home. Lives with her son and family members in [place], [place]. For the last 3-5 days prior to admission, which was 09/20/2018, the patient was coughing, short of breath that is productive of some yellow sputum, had poor p.o. intake. She was treated with a COPD exacerbation. She was more confused and wanting to go home, was not sure where she was at, and blood gas was obtained showing pCO2 levels in the 70s, with a pH of 7.36 and pO2 level in the high 50s that was on 5 liters. BiPAP was ordered. She has cough with wheezing. She is taking some breathing treatments. She does have a history of stage 4 breast CA with a partial mastectomy on the right, and she missed her last chemotherapy regimen, which was a week or two ago, and she has had some malignant ascites in the past. She is on oxygen 2-3 liters at home, was taking breathing treatments, but not routinely at home. I was asked to see her. She thinks she is up to date on her flu vaccine, pneumonia vaccine. She is not the most accurate historian. Family members were present. Again, they did not have any additional information. ALLERGIES: SHE HAS ALLERGIES OR INTOLERANCES TO HYDROCODONE, WHICH GIVES HER HEADACHE, HYDROCHLOROTHIAZIDE, WHICH MAKES HER URINATE MORE, MORPHINE GIVES HER A RASH, TRIAMTERENE ALSO MAKES HER URINATE. OUTPATIENT MEDICATIONS: Included a Combivent inhaler 1 puff 4 times a day. She is supposed to be on DuoNeb treatments 2-4 times a day, Advair HFA 115/21 two puffs b.i.d., spironolactone 12.5 mg daily, gabapentin 300 mg b.i.d., [place] [address] CONSULTATION Name: CUCO ALEXANDER Room: [address] [place] .R.#: [id number] Admission: 09/20/18 Attend Phys: Taylor Niño Discharge: Date of : 42 Report #: [id number] 20 mEq daily, aspirin 81 mg daily. She was on a prednisone taper, and she is off that. PAST MEDICAL HISTORY: Includes breast cancer with malignant ascites, question whether she has had lung cancer and/or mets to the lung from the breast that is not clear to me and also has had hypertension and hypokalemia. Remote history of C. diff and has had cirrhosis in the past and again some malignant ascites. Also has had severe COPD, oxygen dependent, not steroid dependent. FAMILY HISTORY: Negative for premature cardiopulmonary disease. No history of breast cancer, lung cancer in the family. SOCIAL HISTORY: The patient is a former smoker of 30-40 pack years, quit about 15-20 years ago. Alcohol use in the past, but nothing recent, I think it has been several years since she has had a drink. Denies any illicit drug use. REVIEW OF SYSTEMS: A 14-point review of systems was reviewed and negative. Pertinent positives were noted only in the HPI. Rest of the review of systems were unremarkable and negative. PHYSICAL EXAMINATION: GENERAL: A 78-year-old female who is confused. Her son and other family members are there. VITAL SIGNS: Blood pressure is 126/64, heart rate is 90. Respirations were 20-24, slightly labored. Saturation between 3 and 5 liters was 94%. She is 5 feet 5 inches tall, weight 56 kilograms or 115 pounds. BMI is 23. HEENT: Unremarkable. She has some mild stomatitis in her mouth with no definite thrush, with some erythema and tongue lesions noted. No definite thrush. NECK: Supple, without nodes. No increase in jugular venous pressure. Some use of sternocleidomastoid muscles. She has a left-sided Port-A-Cath in her left anterior chest wall, site is clean. CHEST: Shows inspiratory and expiratory wheezes with prolonged expiratory phase posteriorly more than anteriorly, a few rhonchi are noted. CARDIOVASCULAR: Regular rate and rhythm without murmur, gallop or rub. Heart rate is 90s. ABDOMEN: Soft, may be some ascites noted. EXTREMITIES: Without calf tenderness. No cyanosis, clubbing or edema. NEUROLOGIC: Grossly intact, although she is somewhat confused. She will respond to commands and recognizes her family members, person and place. She is oriented to not so much time. LABORATORY DATA: From 09/25/2018 today, hemoglobin is 11, white count 4500, normal differential, platelets are 135,000. MCV is low at 78. Chemistry: Sodium is 136, potassium is 4.4, chloride is 95, bicarbonate initially was 33 and now is 42. BUN 17, creatinine 0.8, glucose was elevated between 85 [place] [address] [address] CONSULTATION Name: CUCO ALEXANDER Room: [address] IN [facility]#: [id number] Admission: 09/20/18 Attend Phys: Taylor Niño Discharge: Date of : 42 Report #: [id number] Magnesium was low at 1.3. LFTs within normal limits. Albumin is 3.2. Vitamin D3 is 41. ABGs this afternoon at 12:13 on 3 liters showed a pO2 of 56, pH 7.36, pCO2 of 73, bicarbonate is 40, sat was 86%. Carboxyhemoglobin is only 0.5. Chest x-ray shows COPD, hyperinflation, upper lobe emphysema. CT of the chest shows hiatal hernia noted, moderately severe upper lobe emphysema and lower lobe infiltrates, PICC line and Port-A-Cath in place. No lung masses or tumors are noted on the CT of the chest from 09/20/2018 which I also reviewed. Cardiomegaly was noted, and there is an ex-lying spiculated mass noted within the right breast noted by the radiologist. Some spondylosis and prior compression fractures in the lower thoracic spine noted. Again, no PE was noted. IMPRESSION: 1. Acute hypercarbic respiratory failure with mental status changes. 2. Severe chronic obstructive pulmonary disease with chronic hypercarbia. 3. Upper lobe emphysema. 4. Hiatal hernia with reflux. 5. Breast CA with stage 4 disease and metastatic disease. 6. Possible malignant ascites. PLAN: The patient is somewhat confused, will see if we can use the BiPAP and follow up her blood gases. They have increased her steroids, possibly albuterol tablets and Brovana in the future may be indicated. We will see if we can get her abide with nebulizer, steroids. She is on piperacillin for an antibiotic. Follow up her blood gases in a day or so. May need a short course of Diamox, and I will see if we can get her pCO2 levels down. When she becomes more responsive, will need to talk with the family about code and ventilator status. I think her prognosis is quite poor. She probably has advanced and severe stage COPD, probably an FEV1 between 0.6 and 0.8 would be my estimation. She will need full PFTs in the future and home nebulizer treatments 4 times a day and not just p.r.n., with a long prednisone taper and current medications. May need a prison facility. Between this and her stage 4 breast cancer, prognosis is quite guarded. 36-minute critical care consult. The patient with hypercarbic respiratory failure. <ELECTRONICALLY SIGNED> By: Eliceo Tang MD 09/26/18 1525 [id number] Briones MD /nt
--- NOTE | 2018-09-26 17:50 | NUR ---
1340 RECEIVED PT FROM [facility], SUSHMA RN AT BEDSIDE. PT ALERT TO SELF AND PLACE, BIPAP IN PLACE, ATTEMPTED TO CALL BOTH SON AND BOYFRIEND TO ALERT THEM TO TRANSFER TO ICU. NO NEW ORDERS. 1500 BP 83/49, DR LUCIANA COHEN, BOLUS ORDERS, CONTINUOUS IV FLUIDS, AND STANDBY LEVOPHED ORDERS RECEIVED. WILL CONTINUE TO MONITOR. 1600 BP IMPROVING 114/50 AFTER 1000ML BOLUS. WILL CONTINUE TO MONITOR. LEVOPHED NOT STARTED AT THIS TIME.
[2018-09-27 05:07] LABS: HEMOGLOBIN 9.6 gm/dL (12.0-15.0); MCH 25.9 pg (26.0-34.0); MCV 78.6 fL (80.0-100.0); MPV 6.7 fl. (7.2-11.1); NUCLEATED RBCS 0 /100WBC; PLATELET COUNT* 139 thou/uL (150-400); RBC 3.69 mil/uL (4.20-5.00); RDW-CV 15.6 % (10.5-14.5); WBC 3.5 thou/uL (4.0-11.0)
[2018-09-27 05:28] LABS: ALBUMIN 2.8 g/dL (3.4-5.0); CALCIUM 8.5 mg/dL (8.5-10.1); CREATININE 0.7 mg/dL (0.6-1.3); MAGNESIUM 1.7 mg/dL (1.8-2.4); POTASSIUM 4.6 mmol/L (3.5-5.1); TOTAL BILIRUBIN 0.4 mg/dL (<0.1-1.0); TOTAL PROTEIN 5.8 g/dL (6.4-8.2)
[2018-09-27 06:11] LABS: ABSOLUTE LYMPHOCYTES 0.3 thou/uL (0.8-5.3); ABSOLUTE MONOCYTES 0.1 thou/uL (0.0-1.2); ABSOLUTE NEUTROPHILS 3.1 thou/uL (1.6-8.1); PLATELET ESTIMATE DECREASED
[2018-09-27 06:12] LABS: ANISOCYTOSIS 1+; POIKILOCYTOSIS 1+; POLYCHROMASIA Occasional
--- NOTE | 2018-09-27 06:37 | NUR ---
patient slowly progressing towards goals. pt orient x3 and forgetful. she was anxious most of the night, trying to get bipap off. changed bipap mask to pillow mask per pt comfort and to prevent breakdown. pt constantly was trying to get out of bed confused to place and why she had bipap on. reorientation given voiced understanding each time. lovelace was placed d/t pt unable to hold purewick cath in place, incontinence high risk for skin breakdown and critical I &O monitoring. vital sings have been stable no acute hemodynamic changes over night. will continue to monitor. pt call light in place. bed to lowest position. bed alarm on.
[2018-09-27 08:18] LABS: BE 6.1 mmol/L (-2 to +3); PO2 77.9 mmHg (75.0-100.0); pH 7.401 (7.340-7.450)
[2018-09-27 08:33] LABS: PCO2 52.8 mmHg (35.0-45.0)
--- NOTE | 2018-09-27 11:14 | NUR ---
PATIENT MORE ALERT AT THIS TIME TALKING WITH A MAN ABOUT DOG FOOD.
--- NOTE | 2018-09-27 16:09 | NUR ---
PATIENT OFF BIPAP FOR 1 HOUE FOR FAMILY VISIT. REMAINS NPO PER DR CHINO INSTRUCTIONS, TO;ERATING BIPAP.
[2018-09-27 17:00] VITALS: BP 117/85
[2018-09-27 18:01] VITALS: BP 144/60
[2018-09-27 20:00] VITALS: BP 157/62
[2018-09-27 21:00] VITALS: BP 167/56
[2018-09-27 22:00] VITALS: BP 140/86
[2018-09-27 23:00] VITALS: BP 164/58
[2018-09-28] VITALS (13 sets, daily range): BP systolic 108–184; BP diastolic 46–93
--- NOTE | 2018-09-28 02:08 | NUR ---
PT ALERT, CONFUSED. O2 AT 3 LITERS NC. BIPAP FOR SLEEP. 02 SATS UPPER 90S. TELEMETRY SHOWS SR. TURCIOS WITH CLEAR YELLOW. NS AT 100MLS/HR. ONE MOD BM. CALLS OUT FREQUENTLY WHEN PT SEES NURSE ENTERING AND EXITING ROOM NEXT TO PT.
[2018-09-28 05:05] LABS: ABSOLUTE LYMPHOCYTES 0.1 thou/uL (0.8-5.3); ABSOLUTE MONOCYTES 0.3 thou/uL (0.0-1.2); ABSOLUTE NEUTROPHILS 2.6 thou/uL (1.6-8.1); HEMATOCRIT 30.3 % (37.0-47.0); HEMOGLOBIN 9.9 gm/dL (12.0-15.0); LYMPHOCYTES 4.2 %; MCH 25.5 pg (26.0-34.0); MCHC 32.7 g/dL (28.0-37.0); MCV 78.1 fL (80.0-100.0); MONOCYTES 9.5 %; MPV 7.3 fl. (7.2-11.1); NUCLEATED RBCS 0 /100WBC; PLATELET COUNT* 165 thou/uL (150-400); POLYS 86.3 %; RBC 3.88 mil/uL (4.20-5.00); RDW-CV 16.1 % (10.5-14.5)
[2018-09-28 05:17] LABS: CALCIUM 8.4 mg/dL (8.5-10.1); CREATININE 0.7 mg/dL (0.6-1.3)
--- NOTE | 2018-09-28 06:33 | NUR ---
PT WORE BIPAP FOR APPROX 5 HOURS. ATIVAN GIVEN ONCE. DID NOT SEEM TO HELP WITH AGGITATION OF WEARING BIPAP. REASSURANCE PROVIDED.
[2018-09-28 08:38] LABS: PCO2 47.6 mmHg (35.0-45.0); PO2 84.5 mmHg (75.0-100.0); pH 7.408 (7.340-7.450)
--- NOTE | 2018-09-28 11:13 | NUR ---
PATIENT CARE ASSUMED AT 0700. PATIENT AOX2. DOES ANSWER SOME SITUATIONAL QUESTIONS CORRECTLY, BUT INAPPROPRIATE AT TIMES. PATIENT ON 3L NC WITH SAT 97%. PATIENT INCONTINENT X3 OF BOWEL WITH COUGHING. DENIES PAIN. PER PULMONARY, PATIENT MUST WEAR BIPAP AT HS AND WITH SLEEP. PATIENT EDUCATED ON THIS. REPORT GIVEN TO MACHELLE SANFORD. ALL QUESTIONS ANSWERED. PATIENT TRANSPORTED BY BED AT 1100.
--- NOTE | 2018-09-28 11:57 | NUR ---
PT TRANSFERRED TO ROOM 222 VIA BED AND ALL BELONGINGS AT APPROXIMATELY 1110 FROM ICU. REPORT RECEIVED FROM MACHELLE RIGGINS. THIS RN AGREES WITH PREVIOUS CRIBBING SETTER. VSS. REFER TO CHARTING. PT A&0X4, INAPPROPRIATE AND CONFUSED AT TIMES. FAMILY AT BEDSIDE. PT DENIES ANY PAIN OR SHORTNESS OF BREATH AT THIS TIME. PT TRACING SR ON THE BOTTLE FILLER. ON 3L NC SAT 94%. TURCIOS TO DEPENDENT DRAINAGE. MEDICATIONS PER AUG. PT REPOSITIONED EVERY 2 HOURS FOR COMFORT. HOURLY ROUNDING OBSERVED. BED IN LOW POSITION. BED ALARM IN PLACE. FALL PRECAUTIONS IN PLACE. CALL LIGHT WITHIN REACH. WILL CONTINUE PLAN OF CARE.
--- NOTE | 2018-09-28 18:06 | NUR ---
NO ACUTE CHANGES THROUGHOUT SHIFT. REFER TO CHARTING. PT INCONT OF BOWEL X2. FAMILY AT BEDSIDE THIS AFTERNOON AND UPDATED ON CURRENT PLAN OF CARE. MEDICATIONS PER MAR. PT REPOSITIONED EVERY 2 HOURS FOR COMFORT. HOURLY ROUNDING OBSERVED. BED IN LOW POSITION. BED ALARM IN PLACE. FALL PRECAUTIONS IN PLACE. CALL LIGHT WITHIN REACH. WILL CONTINUE PLAN OF CARE.
[2018-09-29 04:00] VITALS: BP 134/61
--- NOTE | 2018-09-29 04:54 | NUR ---
PT CARE ASSUMED AT 1930. SAT MAINTAINED IN BIPAP. ALERT AND ORIENTED X3. CALL LIGHT WITHIN REACH AND BED IN LOW POSITION. PT IS ANXIOUS. DENIES PAIN AND SOB. C/O DIARRHEA, INFORMED PHYSICIAN, MEDICATIOIN GIVEN PER EMAR. HOURLY ROUNDING DONE FOR PT SAFETY.
[2018-09-29 08:07] VITALS: BP 130/55
--- NOTE | 2018-09-29 10:00 | NUR ---
ASSUMED CARE OF PT AT 0730. PT RESTING IN BED WAITING FOR BREAKFAST. PT A&0X4, FORGETFUL AT TIMES. TRACING SR ON THE ONLINE CONTENT EDITOR. PT DENIES ANY PAIN OR SHROTNESS OF BREATH AT THIS TIME. PT ON 3L NC SAT 95%. PT UP WITH 1 ASSIST. TURCIOS TO DEPENDENT DRAINAGE. PT GOAL FOR TODAY IS PT AND OT EVAL AND TREAT, DISCONTINUE TURCIOS CATHETER AND VOID WITH NO DIFFICULTIES, INCREASE ACTIVITY AND UP TO CHAIR FOR MEALS. AM ASSESSMENT CHARTED. MEDICATIONS PER AUG. PT REPOSITIONED EVERY 2 HOURS FOR COMFORT. HOURLY ROUNDING OBSERVED. BED IN LOW POSITION. BED ALARM IN PLACE. FALL PRECAUTIONS IN PLACE. CALL LIGHT WITHIN REACH. WILL CONTINUE PLAN OF CARE.
[2018-09-29 12:18] VITALS: BP 133/73
[2018-09-29 16:23] VITALS: BP 104/52
--- NOTE | 2018-09-29 16:55 | NUR ---
NO ACUTE CHANGES THROUGHOUT SHIFT. REFER TO CHARTING. PT PROGRESSING TOWARDS GOALS. POSSIBLE DISCHARGE HOME TOMORROW 09/30 OR 10/01. PT UP TO CHAIR FOR MEALS- TOLERATED WELL. VISITORS AT BEDSIDE THIS AFTERNOON. TURCIOS DISCONTINUED. HEMOC CONSULTED FOR LEUKOPENIA. PT WORKED WITH PT AND OT TODAY. TOLERATED WELL. MEDICATIONS PER AUG. PT REPOSITIONED EVERY 2 HOURS FOR COMFORT. HOURLY ROUNDING OBSERVED. BED IN LOW POSITION. BED ALARM IN PLACE. FALL PRECAUTIONS IN PLACE. CALL LIGHT WITHIN REACH. WILL CONTINUE PLAN OF CARE.
[2018-09-29 20:00] VITALS: BP 119/68
[2018-09-30] VITALS (7 sets, daily range): BP systolic 88–143; BP diastolic 42–58
--- NOTE | 2018-09-30 04:52 | NUR ---
PT CARE ASSUMED AT 1930. SAT MAINTAINED IN BIPAP AT NIGHT. ALERT AND ORIENTED X 3 BUT CONFUSED AT TIMES. CALL LIGHT WITHIN REACH AND BED IN LOW POSITION. DENIES PAIN AND SOB. HOURLY ROUNDING DONE FOR PT SAFETY.
[2018-09-30 05:35] LABS: HEMATOCRIT 28.3 % (37.0-47.0); HEMOGLOBIN 9.3 gm/dL (12.0-15.0); MCH 25.9 pg (26.0-34.0); MCHC 32.8 g/dL (28.0-37.0); MCV 79.1 fL (80.0-100.0); MPV 7.3 fl. (7.2-11.1); RBC 3.58 mil/uL (4.20-5.00); RDW-CV 15.8 % (10.5-14.5); WBC 2.8 thou/uL (4.0-11.0)
[2018-09-30 05:45] LABS: CALCIUM 8.6 mg/dL (8.5-10.1); CREATININE 0.5 mg/dL (0.6-1.3); MAGNESIUM 1.5 mg/dL (1.8-2.4); POTASSIUM 3.4 mmol/L (3.5-5.1)
[2018-09-30] MEDS ORDERED: PREDNISONE 10 M10 MG PO (09:27)
[2018-09-30] MEDS ORDERED: AEROECLIPSE II1 EACH INH (09:32)
[2018-09-30] MEDS ORDERED: IPRAT-ALBUT 0.5-3 ML INH (09:32)
--- NOTE | 2018-09-30 14:04 | NUR ---
PT A/O. TELE TRACKING NSR. BP SOFT THIS AM, PT ASYMPTOMATIC. VITALS OTHERWISE STABLE. PT DENIES CP, SOA. STATES SHE IS LOOKING FORWARD TO DC LATER TODAY. EDUCATED ON SAFETY AND PLAN OF CARE. PLEASE SEE ASSESSMENT FOR ADDITIONAL INFORMATION. WILL CONTINUE TO MONITOR
--- NOTE | 2018-09-30 14:11 | NUR ---
Received order to arrange home oxygen. Spoke with pt. Faxed referral and order to [facility] [place] and they will deliver portable oxygen tank to pt prior to d/c, and arrange delivery of concentrator for home use. No other needs identified.
== END 2018-09-30 17:31 | disposition home or self-care (01) | DRG 808 ==
LOC: M.ERS 15:32 → M.2W 17:04 → M.TBA-ER 17:04 → M.ICU 17:04 → M.2W 18:17 → M.ICU 09-26 13:47 → M.2W 09-28 11:14
PROVIDERS: Internal Medicine; Internal Medicine Critical Care Medicine; Internal Medicine Pulmonary Disease; Personal Emergency Response Attendant; ADMIT Internal Medicine
PROC: 5A09357 Assistance with Respiratory Ventilation, Less than 24 Consecutive Hours, Continuous Positive Airway Pressure (ICD-10-PCS; principal; 2018-09-26)
PROC: 5A09357 Assistance with Respiratory Ventilation, Less than 24 Consecutive Hours, Continuous Positive Airway Pressure (ICD-10-PCS; 2018-09-27)
DX: D61.810 Antineoplastic chemotherapy induced pancytopenia (principal); J18.1 Lobar pneumonia, unspecified organism; J96.21 Acute and chronic respiratory failure with hypoxia; J96.22 Acute and chronic respiratory failure with hypercapnia; G92 Toxic encephalopathy; E87.2 Acidosis; E44.0 Moderate protein-calorie malnutrition; I10 Essential (primary) hypertension; C50.919 Malignant neoplasm of unspecified site of unspecified female breast; D50.9 Iron deficiency anemia, unspecified; E78.00 Pure hypercholesterolemia, unspecified; E11.9 Type 2 diabetes mellitus without complications; K21.9 Gastro-esophageal reflux disease without esophagitis; K44.9 Diaphragmatic hernia without obstruction or gangrene; J43.9 Emphysema, unspecified; Z79.82 Long term (current) use of aspirin; Z90.12 Acquired absence of left breast and nipple; Z90.710 Acquired absence of both cervix and uterus; Z90.49 Acquired absence of other specified parts of digestive tract; Z85.118 Personal history of other malignant neoplasm of bronchus and lung; Z88.5 Allergy status to narcotic agent; Z88.8 Allergy status to other drugs, medicaments and biological substances; Z88.6 Allergy status to analgesic agent; Z87.891 Personal history of nicotine dependence; Z99.81 Dependence on supplemental oxygen; Z68.25 Body mass index [BMI] 25.0-25.9, adult

== ENCOUNTER 2018-10-16 19:33 | Inpatient (IN) | payer MEDICARE, OTHER ==
[~2018-10-16] VITALS: Ht 157.5 cm; Wt 64.0 kg
[~2018-10-16 19:33] MED LIST changes: +AEROECLIPSE II1 EACH INH; +COMBIVENT INH; +COMPAZINE10 MG PO; +IPRAT-ALBUT 0.5-3 ML INH; +REMERON15 MG PO; +SPIRONOLACTONE25 M1 PO
[2018-10-16 19:42] VITALS: BP 120/72
[2018-10-16 20:04] LABS: URINE BILIRUBIN NEGATIVE (Negative); URINE BLOOD NEGATIVE (Negative); URINE CLARITY CLEAR; URINE COLOR YELLOW; URINE GLUCOSE-RANDOM NEGATIVE (Negative); URINE KETONES NEGATIVE (Negative); URINE LEUKOCYTES-REFLEX NEGATIVE (Negative); URINE NITRITE-REFLEX NEGATIVE (Negative); URINE PROTEIN TRACE (Negative); URINE SPECIFIC GRAVITY 1.015 (1.005-1.030)
[2018-10-16 20:14] LABS: HEMATOCRIT 38.6 % (37.0-47.0); HEMOGLOBIN 12.6 gm/dL (12.0-15.0); MCH 27.7 pg (26.0-34.0); MCHC 32.6 g/dL (28.0-37.0); MCV 85.1 fL (80.0-100.0); MPV 7.3 fl. (7.2-11.1); NUCLEATED RBCS 0 /100WBC; PLATELET COUNT* 121 thou/uL (150-400); RBC 4.54 mil/uL (4.20-5.00); WBC 8.3 thou/uL (4.0-11.0)
[2018-10-16 20:25] LABS: ALBUMIN 3.7 g/dL (3.4-5.0); CALCIUM 9.4 mg/dL (8.5-10.1); CREATININE 0.7 mg/dL (0.6-1.3); POTASSIUM 4.1 mmol/L (3.5-5.1); TOTAL BILIRUBIN 1.1 mg/dL (<0.1-1.0); TOTAL PROTEIN 7.3 g/dL (6.4-8.2)
[2018-10-16 20:40] LABS: ABSOLUTE EOSINOPHILS 0.1 thou/uL (0.0-0.7); ABSOLUTE LYMPHOCYTES 0.2 thou/uL (0.8-5.3); ABSOLUTE MONOCYTES 0.7 thou/uL (0.0-1.2); ABSOLUTE NEUTROPHILS 7.4 thou/uL (1.6-8.1)
[2018-10-16 20:41] LABS: ANISOCYTOSIS 2+
[2018-10-16 20:43] LABS: PLATELET ESTIMATE DECREASED
[2018-10-16 23:35] VITALS: BP 119/68
--- NOTE | 2018-10-17 03:14 | NUR ---
PT ARRIVED AT 2340 ADMITTED TO ROOM 309, PT ASSISTED TO PIVOT FROM STRETCHER TO HOSPITAL BED WITH LITTLE ASSISTANCE, PT DENIES ABDOMINAL PAIN, IS BELCHING AND REPORTS BEING A LITTLE NAUSEATED, O2 AT 2 LITERS PER NC, ABDOMEN IS SOFT, ROUND, SYMETRICAL, NONTENDER AND DISTENDED, MAINTENENCE FLUIDS INITIATED, ORDER FOR NG PLACEMENT VERIFIED WITH ED DR AND PLACED BY THIS NURSE, ABDOMINAL XRAY OBTAINED, PLACEMENT VERIFIED BY ED DR. DEL TORO AND SET TO LIS AT 0100, LIGHT BROWN WATERY OUTPUT NOTED, PT REQUEST MEDICATION TO HELP HER SLEEP AND APPEARS ANXIOUS, ORDERS RECEIVED FROM DR CHOWDHURY, ADMISSION ASSESSMENT COMPLETE
[2018-10-17 04:09] VITALS: BP 106/54
[2018-10-17 08:45] VITALS: BP 113/62
[2018-10-17 10:38] LABS: HEMATOCRIT 35.7 % (37.0-47.0); HEMOGLOBIN 11.6 gm/dL (12.0-15.0); MCH 28.1 pg (26.0-34.0); MCHC 32.6 g/dL (28.0-37.0); MCV 86.1 fL (80.0-100.0); MPV 6.9 fl. (7.2-11.1); RBC 4.14 mil/uL (4.20-5.00); RDW-CV 23.9 % (10.5-14.5); WBC 6.4 thou/uL (4.0-11.0)
[2018-10-17 10:49] LABS: ALBUMIN 3.2 g/dL (3.4-5.0); CALCIUM 8.3 mg/dL (8.5-10.1); CREATININE 0.7 mg/dL (0.6-1.3); MAGNESIUM 1.4 mg/dL (1.8-2.4); PHOSPHORUS* 2.7 mg/dL (2.5-4.9); POTASSIUM 3.7 mmol/L (3.5-5.1); TOTAL BILIRUBIN 1.2 mg/dL (<0.1-1.0); TOTAL PROTEIN 6.4 g/dL (6.4-8.2)
--- NOTE | 2018-10-17 15:37 | NUR ---
SW met with pt to complete initial assessment, introduce self, and SW role. Pt significant other and pt son visiting pt. Pt alert, oriented. Pt lives at home with sig. other. Pt has RW, cane, O2 at home through [facility]. SW discussed possible need for additional assistance with ADLs at home and pt denied this possibility stating that her dtr could assist if needed and pt did not want any HH or other agency type of assist at this time. SW to continue to follow to assist with safe dc planning.
[2018-10-17 16:00] VITALS: BP 111/57
--- NOTE | 2018-10-17 18:46 | NUR ---
PATIENT RESTING IN BED. PATIENT IS UP STANDBY ASSIST TO COMMODE. PATIENT HAS HAD SMALL BOWEL MOVEMENT TODAY. PATIENT HAD COMPLAINTS OF PAIN X 1 THIS AM TO BACK. NO THER COMPLAITS OF PAIN OR NAUSEA. PATIENTHAS NG TUBE TO LOW INTERMITTENT SUCTION, WITH LIGHT BROWN DRAINAGE. PATIENT DENIES ANY NEEDS AT THIS TIME. CALL LIGHT WITHIN REACH. WILL CONTINUE TO MONITOR.
[2018-10-17 20:00] VITALS: BP 109/60
[2018-10-18 04:27] LABS: ABSOLUTE LYMPHOCYTES 0.3 thou/uL (0.8-5.3); ABSOLUTE MONOCYTES 0.6 thou/uL (0.0-1.2); ABSOLUTE NEUTROPHILS 3.8 thou/uL (1.6-8.1); BASOPHILS 0.2 %; EOSINOPHILS 0.5 %; HEMATOCRIT 30.9 % (37.0-47.0); LYMPHOCYTES 5.4 %; MCH 28.2 pg (26.0-34.0); MCHC 32.5 g/dL (28.0-37.0); MCV 86.7 fL (80.0-100.0); MONOCYTES 13.7 %; NUCLEATED RBCS 0 /100WBC; PLATELET COUNT* 83 thou/uL (150-400); POLYS 80.2 %; RBC 3.56 mil/uL (4.20-5.00); RDW-CV 24.1 % (10.5-14.5); WBC 4.7 thou/uL (4.0-11.0)
[2018-10-18 04:41] LABS: ALBUMIN 2.8 g/dL (3.4-5.0); CREATININE 0.6 mg/dL (0.6-1.3); MAGNESIUM 1.4 mg/dL (1.8-2.4); PHOSPHORUS* 2.7 mg/dL (2.5-4.9); POTASSIUM 3.4 mmol/L (3.5-5.1); TOTAL BILIRUBIN 1.5 mg/dL (<0.1-1.0); TOTAL PROTEIN 5.8 g/dL (6.4-8.2)
--- NOTE | 2018-10-18 04:46 | NUR ---
ASSUMED PATIENT CARE AT 1900. PATIENT ALERT AND ORIENTED TO 3-4 WITH SOME CONFUSION NOTED. NG TUBE IN PLACE TO LOW INTERMITTENT SUCTION. ACCESSED PORT PATENT TO FLUIDS AND BLOOD DRAWS. PATIENT USES CALLL IGHT APPROPRIATLY. ABLE TO TRANSFER TO [facility] WITH SOME ASSISST WITH IV AND NG MANAGEMENT. DISABILITY RATER AND HOURLY ROUNDING COMPLETED DOCUMENTED. WILL CONTINUE WITH PLAN OF CARE
[2018-10-18 05:42] LABS: HEMATOCRIT 30.9 % (37.0-47.0); MCH 28.2 pg (26.0-34.0); MCHC 32.5 g/dL (28.0-37.0); MCV 86.7 fL (80.0-100.0); RBC 3.56 mil/uL (4.20-5.00); RDW-CV 24.1 % (10.5-14.5); WBC 4.7 thou/uL (4.0-11.0)
[2018-10-18 09:00] VITALS: BP 133/65
[2018-10-18 16:00] VITALS: BP 128/63
--- NOTE | 2018-10-18 18:30 | NUR ---
MOE T IS ALERT AND ORIENTED TODAY VERY PLEASANT UP WITH STAND BY TO THE BEDSIDE COMMODE. NG IN PLACE. TRIED TO CLAMP AND GIVE LIQUIDS EARLIER TODAY PATIENT DID NOT TOLERATE WELL, NG UNCLAMPED AND DRAINED ABOUT 2OO OUT, PATIENT HAD PAIN AND NAUSEA. PORT ACCESSED IN LEFT CHEST WITH FLUIDS INFUSING. CALL LIGHT IS IN REACH, WILL CONTNINUE TO MONITOR.
[2018-10-19] VITALS: BP 90/52
[2018-10-19 07:02] LABS: ABSOLUTE EOSINOPHILS 0.1 thou/uL (0.0-0.7); ABSOLUTE LYMPHOCYTES 0.2 thou/uL (0.8-5.3); ABSOLUTE MONOCYTES 0.7 thou/uL (0.0-1.2); ABSOLUTE NEUTROPHILS 2.8 thou/uL (1.6-8.1); BASOPHILS 0.5 %; EOSINOPHILS 1.6 %; HEMATOCRIT 32.7 % (37.0-47.0); HEMOGLOBIN 10.8 gm/dL (12.0-15.0); LYMPHOCYTES 6.3 %; MCH 28.6 pg (26.0-34.0); MCHC 33.1 g/dL (28.0-37.0); MCV 86.4 fL (80.0-100.0); MONOCYTES 17.3 %; MPV 7.5 fl. (7.2-11.1); NUCLEATED RBCS 0 /100WBC; PLATELET COUNT* 101 thou/uL (150-400); POLYS 74.3 %; RBC 3.79 mil/uL (4.20-5.00); WBC 3.8 thou/uL (4.0-11.0)
[2018-10-19 07:10] LABS: ALBUMIN 3.1 g/dL (3.4-5.0); CALCIUM 8.4 mg/dL (8.5-10.1); CREATININE 0.6 mg/dL (0.6-1.3); POTASSIUM 3.5 mmol/L (3.5-5.1); TOTAL BILIRUBIN 1.1 mg/dL (<0.1-1.0); TOTAL PROTEIN 6.3 g/dL (6.4-8.2)
--- NOTE | 2018-10-19 07:32 | NUR ---
PATIENT ALERT/ORIENTED X4. PT WITH LT CHEST POC; ABLE TO DRAW/FLUSH WITH NO RESISTANCE. FLUIDS INFUSING PER DR ORDER. PT GIVEN PAIN MEDICATION X1 FOR BACK PAIN. PT THINKS BACK PAIN IS FROM HER NEEDING TO HAVE A BOWEL MOVEMENT. PT UP TO BSC WITH STANDBY ASSISTANCE TO VOID. PT WITH 500ML FROM NG TUBE DURING THIS SHIFT. PT DENIES NEEDS AT THIS TIME. FREQUENTLY USED ITEMS AND CALL LIGHT WITHIN REACH. WILL CONTINUE TO MONITOR
[2018-10-19 07:40] VITALS: BP 115/63
[2018-10-19 15:45] VITALS: BP 122/70
--- NOTE | 2018-10-19 17:29 | NUR ---
PATIENT IS ALERT AND ORIENTED TODAY VERY PLEASANT. FEELING BETTER THIS AFTERNOON AFTER A ROUGH MORNING WITH NAUSEA AND VOMITNG. PATIENT HAS AMBULATED TWICE AND SHOWERED WITH NO ISSUES OF NAUSEA OR VOMITING. PORT A CATH DRESSING CHANGED TODAY AFTER SHOWER. ENEMA GIVEN WITH NO RESULTS SO FAR. VITAL SIGNS STABLE ON 2 LITERS OF OXYGEN DID FINE ABULATING IN HALLS WITH OUT OXYGEN TODAY. SOME MILD PAIN TODAY THAT IS TOERABLE PER PATIENT. CALL LIGHT IS IN REACH, WILL CONTINUE TO MONITOR.
[2018-10-20 01:00] VITALS: BP 99/62
[2018-10-20 05:13] LABS: HEMATOCRIT 32.1 % (37.0-47.0); HEMOGLOBIN 10.6 gm/dL (12.0-15.0); MCH 28.5 pg (26.0-34.0); MCV 86.2 fL (80.0-100.0); MPV 7.3 fl. (7.2-11.1); RBC 3.73 mil/uL (4.20-5.00); RDW-CV 23.6 % (10.5-14.5); WBC 2.8 thou/uL (4.0-11.0)
--- NOTE | 2018-10-20 05:17 | NUR ---
PATIENT SLEPT WELL DURING THIS SHIFT. PT UP TO BSC WITH STANDBY, VOIDS YELLOW URINE. PT WITH NG ON L-I SUCTION, 1000ML OF DARK BROWN DRAINAGE OUT. PT C/O BACK PAIN SHE FEELS IS BECAUSE SHE NEEDS TO HAVE A BOWEL MOVEMENT. PT WITH FLUIDS INFUSING IN PAC PER DR ORDER. ABLE TO DRAW/FLUSH PAC WITH EASE. PT DENIES NEEDS AT THIS TIME. FREQUENTLY USED ITEMS AND CALL LIGHT WITHIN REACH. SIDERAILS UPX2. WILL CONTINUE TO MONITOR.
[2018-10-20 05:40] LABS: CALCIUM 8.6 mg/dL (8.5-10.1); CREATININE 0.6 mg/dL (0.6-1.3); MAGNESIUM 1.6 mg/dL (1.8-2.4); POTASSIUM 3.3 mmol/L (3.5-5.1)
[2018-10-20 07:40] VITALS: BP 124/66
[2018-10-20 16:00] VITALS: BP 130/60
--- NOTE | 2018-10-20 17:29 | NUR ---
PATIENT IS ALERT AND ORIENTED TODAY, VERY PLEASANT. UP WITH STAND BY ASSSIT TO THE BEDSIDE COMMODE. SUPPOSITORY GIVEN THIS MORNING WITH NO RESULTS SO FAR. IV DFLUIS RUNNING IN PORT A CATH IN LEFT CHEST, HAVE BEEN REPLACING POTASSIUM TODAY PER PROTOCOL. PATIENTS NAUSEA WAS NOT CONTROLLED WITH ZOFRAN SO COMPAZINE GIVEN LATER. VITAL SIGNS HAVE BEEN STABLE OTHER THAN AN ELEVATED HEART RATE, BOLUS GIVEN WITH SYMPTOM IMPROVEMENT. CALL LIGHT IS IN REACH, WILL CONTINUE TO MONITOR.
[2018-10-20 20:00] VITALS: BP 136/58
[2018-10-21 05:58] LABS: HEMATOCRIT 30.8 % (37.0-47.0); HEMOGLOBIN 10.1 gm/dL (12.0-15.0); MCH 28.6 pg (26.0-34.0); MCHC 32.9 g/dL (28.0-37.0); MCV 86.9 fL (80.0-100.0); RBC 3.54 mil/uL (4.20-5.00); WBC 2.5 thou/uL (4.0-11.0)
[2018-10-21 06:22] LABS: CALCIUM 8.2 mg/dL (8.5-10.1); CREATININE 0.5 mg/dL (0.6-1.3); MAGNESIUM 1.7 mg/dL (1.8-2.4); PHOSPHORUS* 2.4 mg/dL (2.5-4.9); POTASSIUM 4.1 mmol/L (3.5-5.1)
[2018-10-21 07:50] VITALS: BP 119/60
--- NOTE | 2018-10-21 15:46 | NUR ---
DR. FAIRCHILD UPDATED ON PROGRESS OF SBFT. PATIENT TO BE RESUMED TO AND MADE NPO. PATIENT INFORMED OF THE ABOVE. WILL CONTINUE WITH PLAN OF CARE.
[2018-10-21 16:00] VITALS: BP 138/60
--- NOTE | 2018-10-21 17:30 | NUR ---
PATIENT HAS BEEN A/O X 4 THIS SHIFT. PATIENT NPO, TAKING MINIMAL ICE CHIPS. PATIENT CONTINUES ON IVF THIS SHIFT. PATIENT HAD MAGNESIUM REPLACED THIS SHIFT. PATIENT HAD SBFT THIS SHIFT, TO HAVE REPEAT KUB IN AM. PATIENT UP SBA TO BSC, NO BMs THIS SHIFT. PATIENT SHOWERED THIS SHIFT. CONTINUES ON NG TUBE TO LIS, HAS HAD COPIOUS AMOUNTS OF DRAINAGE. PATIENT TO HAVE REPEAT LABS IN AM. HOURLY ROUNDING COMPLETED. CALL LIGHT WITHIN REACH. WILL CONTINUE WITH PLAN OF CARE.
[2018-10-21 21:30] VITALS: BP 136/72
--- NOTE | 2018-10-22 05:38 | NUR ---
PT A&O. VS AND ASSESSMENT COMPLETE ON 2L NC. PT HAD NAUSEA THIS SHIFT, COMPANZINE GIVEN X1 AND RELIEF NOTED. PT HAD ICE CHIPS SPARING BEGINING OF SHIFT. PT CONTINUES ON NG TUBE TO LIS. PT HAD TOTAL OF 1100ML NG OUTPUT THIS SHIFT. CALL LIGHT WITHIN REACH. WILL CONTINUE TO MONITOR.
[2018-10-22 06:22] LABS: HEMATOCRIT 35.1 % (37.0-47.0); HEMOGLOBIN 11.4 gm/dL (12.0-15.0); MCH 28.1 pg (26.0-34.0); MCHC 32.4 g/dL (28.0-37.0); MCV 86.8 fL (80.0-100.0); MPV 7.2 fl. (7.2-11.1); RBC 4.04 mil/uL (4.20-5.00); RDW-CV 23.3 % (10.5-14.5); WBC 3.7 thou/uL (4.0-11.0)
[2018-10-22 06:27] LABS: CALCIUM 9.1 mg/dL (8.5-10.1); CREATININE 0.7 mg/dL (0.6-1.3); PHOSPHORUS* 3.4 mg/dL (2.5-4.9); POTASSIUM 3.4 mmol/L (3.5-5.1)
[2018-10-22 08:30] VITALS: BP 114/94
[2018-10-22 12:47] LABS: URINE BILIRUBIN NEGATIVE (Negative); URINE BLOOD TRACE (Negative); URINE CLARITY CLEAR; URINE COLOR YELLOW; URINE GLUCOSE-RANDOM NEGATIVE (Negative); URINE KETONES 2+ (Negative); URINE LEUKOCYTES-REFLEX NEGATIVE (Negative); URINE NITRITE-REFLEX NEGATIVE (Negative); URINE PROTEIN NEGATIVE (Negative); URINE SPECIFIC GRAVITY <= 1.005 (1.005-1.030); URINE UROBILINOGEN 0.2 E.U./dl (0.2-1.0)
[2018-10-22 17:16] VITALS: BP 123/63
--- NOTE | 2018-10-22 19:11 | NUR ---
PATIENT HAS BEEN A/O X 4 THIS SHIFT. CONTINUES WITH NG TUBE TO LIS WITH BROWN DRAINAGE. STARTED ON SIPS OF CLEARS THIS SHIFT. PATIENT GIVEN NAUSEA MEDS THIS AM, NO NAUSEA OF VOMITING THIS EVENING. UP TO BSC, UA SENT ORDERED. UP TO CHAIR INTERMITTENTLY THIS SHIFT. TO HAVE REPEAT ABD XRAY IN AM. POTASSIUM REPLACED AND TO HAVE REPEAT LABS IN AM. FAMILY AND FRIENDS VISISTED THIS SHIFT. HOURLY ROUNDING COMPLETED. CALL LIGHT WITHIN REACH. WILL CONTINUE WITH PLAN OF CARE.
[2018-10-22 20:05] VITALS: BP 138/72
[2018-10-23 05:04] LABS: HEMATOCRIT 33.9 % (37.0-47.0); HEMOGLOBIN 11.1 gm/dL (12.0-15.0); MCH 28.1 pg (26.0-34.0); MCHC 32.8 g/dL (28.0-37.0); MCV 85.9 fL (80.0-100.0); MPV 7.2 fl. (7.2-11.1); RBC 3.94 mil/uL (4.20-5.00); RDW-CV 22.9 % (10.5-14.5); WBC 4.9 thou/uL (4.0-11.0)
[2018-10-23 05:12] LABS: CALCIUM 8.8 mg/dL (8.5-10.1); CREATININE 0.7 mg/dL (0.6-1.3); MAGNESIUM 1.1 mg/dL (1.8-2.4); PHOSPHORUS* 2.9 mg/dL (2.5-4.9); POTASSIUM 3.7 mmol/L (3.5-5.1)
[2018-10-23 05:45] LABS: CALCIUM 8.8 mg/dL (8.5-10.1); CREATININE 0.7 mg/dL (0.6-1.3); POTASSIUM 3.8 mmol/L (3.5-5.1); TOTAL BILIRUBIN 0.7 mg/dL (<0.1-1.0); TOTAL PROTEIN 5.9 g/dL (6.4-8.2)
--- NOTE | 2018-10-23 06:15 | NUR ---
PT SLEPT MOST OF SHIFT. ASSESSMENT DOCUMENTED. MEDS GIVEN PER E-MAR. PORT PATENT, FLUIDS INFUSING. NO REPORTS OF PAIN THIS SHIFT. PT DID REPORT SOME NAUSEA THIS AM, BUT WANTED HER PROTONIX A LITTLE EARLY STATING IT HELPS WITH HER NAUSEA. NG TUBE IN PLACE. ELECTROLYTES BEING REPLACED PER PROTOCOL. WILL CONTINUE WITH PLAN OF CARE.
[2018-10-23 08:00] VITALS: BP 114/53
--- NOTE | 2018-10-23 14:50 | NUR ---
Nutrition: Pt assessed for LOS. Admitted with SBO. Still no BM, no flatus. Sips of clears. Wt: 126#. Alb 3.1, prealb 13.4, BG 101. Still with persistent distal SBO. Following POC closely. No nutrition interventions needed today. High nutrition risk. Will follow up tomorrow, 10/24/18.
[2018-10-23 17:37] VITALS: BP 143/79
[2018-10-23 20:30] VITALS: BP 124/68
--- NOTE | 2018-10-24 05:36 | NUR ---
PT SLEPT ON AND OFF THIS SHIFT. ASSESSMENT DOCUMENTED. MEDS GIVEN PER E-AUG. PORT PATENT, FLUIDS INFUSING. NG TUBE LEFT OUT MOST OF SHIFT, WITH OKAY FROM DR HE. NG TUBE REPLACED THIS MORNING DUE TO NAUSEA, WILL STOCKKEEPER TO SUCTION WHEN PLACEMENT VERIFIED BY X-RAY. PT REPORTED PAIN IN HER BACK IS GETTING BETTER. SUPPOSITORY GIVEN PER E-AUG. PT DID HAVE 2 VERY SMALL BOWEL MOVEMENTS. WILL CONTINUE WITH PLAN OF CARE.
[2018-10-24 08:00] VITALS: BP 112/66
--- NOTE | 2018-10-24 16:02 | NUR ---
SHIFT NOTE - PT WALKED 3 TIMES IN HALLS FOR THIS SHIFT. NG IN PLACE. L PAC IN PLACE AND IVF RUNNING. WILL CONTINUE TO MONITOR.
[2018-10-24 16:18] VITALS: BP 135/112
[2018-10-24 20:04] VITALS: BP 111/79
[2018-10-25 04:08] LABS: HEMOGLOBIN 10.8 gm/dL (12.0-15.0); MCH 28.5 pg (26.0-34.0); MCHC 33.8 g/dL (28.0-37.0); MCV 84.3 fL (80.0-100.0); RBC 3.8 mil/uL (4.20-5.00); WBC 5.5 thou/uL (4.0-11.0)
[2018-10-25 04:26] LABS: CALCIUM 8.6 mg/dL (8.5-10.1); CREATININE 0.5 mg/dL (0.6-1.3); MAGNESIUM 1.3 mg/dL (1.8-2.4); POTASSIUM 3.4 mmol/L (3.5-5.1)
[2018-10-25 08:00] VITALS: BP 145/54
--- NOTE | 2018-10-25 09:07 | NUR ---
PT IS ABLE TO COMMUNICATE HER NEEDS TO STAFF EFFECTIVELY. CURRENT PAIN MEDICATION REGIMEN HAS BEEN ADEQUATE FOR CONTROLLING HER PAIN UP TO THIS TIME. LEFT CHEST PORT IS ACCESSED AND PATENT. NG TUBE IN LEFT NARE IS PATENT TO LOW INTERMITTENT SUCTION. CLEAR LIQUID DIET MAINTAINED.
[2018-10-25 15:30] VITALS: BP 99/53
--- NOTE | 2018-10-25 18:42 | NUR ---
PT IS ALERT AND ORIENTED X 4. NG TUBE IN PLACE. PATIENT DENIED PAIN DURING DAY. NG TUBE WAS CLAMPED @ 1335. PATIENT HAD NAUSEA X 3. GIVEN IV ZOFRAN AND IV COMPAZINE FOR NAUSEA. RECEIVED IV POTASSIUM REPLACMENT. DR. HE INFORMED OF NAUSEA AND RECEIVED ORDERS TO KEEP NG CLAMPED AND NPO EXCEPT SIPS OF WATER/ICE CHIPS. ABDOMINAL SERIES CURRENTLY ORDERED FOR AM. HOURLY ROUNDS MAINTAINED. CALL LIGHT WITHIN REACH.
[2018-10-25 20:20] VITALS: BP 114/67
[2018-10-26 05:03] LABS: HEMATOCRIT 33.4 % (37.0-47.0); HEMOGLOBIN 11.1 gm/dL (12.0-15.0); MCHC 33.3 g/dL (28.0-37.0); MCV 84.1 fL (80.0-100.0); MPV 7.5 fl. (7.2-11.1); RBC 3.98 mil/uL (4.20-5.00); RDW-CV 21.9 % (10.5-14.5)
--- NOTE | 2018-10-26 05:06 | NUR ---
PT REMAINED ALERT AND ORIENTED. PT C/O NAUSEA, MEDS GIVEN ORDERED. PT VOMITED, SURGERY NOTIFIED. RESTARTED NG SUCTION ON LOW INTERMITTENT. FALL RISK PRECAUTIONS IN PLACE. PT NPO. HOURLY ROUNDING COMPLETED. WILL CONTINUE TO MONITOR.
[2018-10-26 05:28] LABS: ALBUMIN 2.7 g/dL (3.4-5.0); CALCIUM 8.9 mg/dL (8.5-10.1); CREATININE 0.6 mg/dL (0.6-1.3); MAGNESIUM 1.3 mg/dL (1.8-2.4); POTASSIUM 3.5 mmol/L (3.5-5.1); TOTAL BILIRUBIN 0.4 mg/dL (<0.1-1.0); TOTAL PROTEIN 5.9 g/dL (6.4-8.2)
[2018-10-26 08:30] VITALS: BP 116/70
[2018-10-26 16:50] VITALS: BP 116/73
--- NOTE | 2018-10-26 16:57 | NUR ---
PATIENT HAS BEEN A/O X 4 THIS SHIFT. HAS DENIED PAIN. NG TUBE REMAINS IN PLACE, DRAINING GREEN DRAINAGE. UP SBA TO BSC. PATIENT GIVEN MIRALAX THIS SHIFT, HAS SMALL LIQUID BM. PATIENT TAKING ICE CHIPS SPARINGLY. PATIENT TO BE NPO AFTER MIDNIGHT FOR SURGERY IN AM. FAMILY AT BEDSIDE THIS SHIFT. HOURLY ROUNDING COMPLETED. CALL LIGHT WITHIN REACH. WILL CONITNUE WITH PLAN OF CARE
[2018-10-26 19:45] VITALS: BP 106/64
[2018-10-27] VITALS (18 sets, daily range): BP systolic 77–138; BP diastolic 30–94
--- NOTE | 2018-10-27 05:05 | NUR ---
PT REMAINED ALERT AND ORIENTED. VITALS,O2 SAT STABLE RA. SCHEDULED ZOFRAN GIVEN PER EMAR. PT STATED NAUSEA BUT NO EMESIS. YELLOWISH GREEN RETURN FROM NG TUBE. PT DENIED PAIN. PT STATED ITCHINESS OF HER ARMS. NO RASH OBSERVED, LOTION APPLIED. BENEDRYL OFFERED, PT DECLINED. HOURLY ROUNDING COMPLETED. WILL CONTINUE TO MONITOR.
[2018-10-27 05:11] LABS: HEMATOCRIT 32.7 % (37.0-47.0); HEMOGLOBIN 10.9 gm/dL (12.0-15.0); MCH 27.7 pg (26.0-34.0); MCHC 33.3 g/dL (28.0-37.0); MCV 83.3 fL (80.0-100.0); MPV 7.1 fl. (7.2-11.1); NUCLEATED RBCS 0 /100WBC; PLATELET COUNT* 216 thou/uL (150-400); RBC 3.93 mil/uL (4.20-5.00); RDW-CV 21.8 % (10.5-14.5); WBC 8.4 thou/uL (4.0-11.0)
[2018-10-27 05:50] LABS: CALCIUM 8.5 mg/dL (8.5-10.1); CREATININE 0.7 mg/dL (0.6-1.3); MAGNESIUM 1.7 mg/dL (1.8-2.4); PHOSPHORUS* 3.3 mg/dL (2.5-4.9); POTASSIUM 3.6 mmol/L (3.5-5.1)
[2018-10-27 06:30] LABS: ABSOLUTE LYMPHOCYTES 1.3 thou/uL (0.8-5.3); ABSOLUTE MONOCYTES 1.3 thou/uL (0.0-1.2); ABSOLUTE NEUTROPHILS 5.9 thou/uL (1.6-8.1); ATYPICAL LYMPHS 1 %; METAMYELOCYTES 1 %
[2018-10-27 06:31] LABS: PLATELET ESTIMATE ADEQUATE
[2018-10-27 06:32] LABS: ANISOCYTOSIS 2+; POLYCHROMASIA 1+
[2018-10-27 06:33] LABS: LARGE PLATELETS OCCASIONAL; TOXIC GRANULATION 2+
--- NOTE | 2018-10-27 08:35 | NUR ---
PATIENT TAKEN TO SURGERY VIA BED WITH SURGERY STAFF. PRE-OP ANTIBIOTIC SENT WITH SURGERY STAFF. PATIENT'S FAMILY ACCOMPANIED PATIENT TO PREOP HOLDING.
--- NOTE | 2018-10-27 13:05 | NUR ---
PATIENT RETURNED FROM PACU S/P EXP LAP WITH LYSIS OF ADHESIONS AND SMALL BOWEL RESECTION. NG TO LIS, O2 IN PLACE AT 5L/NC. CONTINUOUS PULSE OX IN PLACE. SCDS IN PLACE. BP TRENDING UP. IV FLUIDS RESUMED. TURCIOS PATENT. PLACED ON AIRCRAFT STRUCTURE MECHANIC, TRACING ST. FAMILY AT BEDSIDE. BED ALARM PLACED. DELISA ORTEGA. WILL CONTINUE WITH PLAN OF CARE.
--- NOTE | 2018-10-27 16:25 | NUR ---
PATIENT NOTED OT HAVE LOW URINE OUTPUT POST SURGERY SINCE ARRIVING TO FLOOR. DR. LAMB AND DR. JAYLEN COHEN. CONTINUES TO BE SINUS TACH ON THE MONITOR. ORAL CARE BEING PROVIDED.
--- NOTE | 2018-10-27 17:07 | OP ---
[address] [address] OPERATIVE REPORT Name: CUCO ALEXANDER Room: [address] IN .R.#: [id number] Admission: 10/16/18 Attend Phys: Mindy Coley MD Discharge: Date of : 42 Report #: [id number] THIS REPORT FOR: //name// CC: Leonidas Coley DATE OF SERVICE: 10/27/2018 PREOPERATIVE DIAGNOSIS: Small-bowel obstruction. POSTOPERATIVE DIAGNOSES: Small-bowel obstruction due to adhesions to a previously deployed mesh. Multiple intra-abdominal adhesions along the mesh. SURGEON: Aleida Carrera DO. COSURGEON: Tiffanie Morales, PGY-1. KARDEX CLERK: None. OPERATIONS PERFORMED: Exploratory laparotomy, lysis of adhesions greater than 1 hour and 30 minutes. Small bowel resection with primary anastomosis, application of Prevena VAC. ANESTHESIA: General endotracheal and local. ESTIMATED BLOOD LOSS: 100. DRAINS: Casas, Prevena VAC and a new NG tube. SPECIMENS: Portion of the distal small bowel. COMPLICATIONS: None. CONDITION: Stable. DISPOSITION: PACU to the floor. HISTORY OF PRESENT ILLNESS: The patient is a very pleasant 78-year-old female with multiple surgeries in her history. She presented to the ER with complaint of abdominal pain, nausea, vomiting and bloating. She has also still been receiving chemotherapy for history of breast cancer. Conservative management was attempted with n.p.o., NG tube, and IV fluids; however, she failed to progress. An upper GI with small bowel follow through did show some contrast that eventually moved into the colon, but again she had no appreciable return of bowel function. At this point, we then decided to proceed with surgery. She was consented for an exploratory laparotomy, possible bowel resection, possible [facility] [address] [place] [address] OPERATIVE REPORT Name: CUCO ALEXANDER Room: [address] IN [facility]#: [id number] Admission: 10/16/18 Attend Phys: Mindy Coley MD Discharge: Date of : 41 Report #: [id number] ostomy. Risks discussed included bleeding, infection, pain, scar formation, injury to bowel, need for bowel resection, need for ostomy, need for further surgery and risks of general anesthesia. The patient understood these risks and elected to proceed. DESCRIPTION OF PROCEDURE: The patient was brought to the operating room. She was laid supine on the operating room table. SCDs were placed on bilateral lower extremities. Ancef was given in the perioperative period. General endotracheal anesthesia was induced by anesthesia without difficulty. Casas was placed utilizing sterile technique. Abdomen was prepped and draped in standard sterile fashion. Timeout was performed to verify patient and procedure. A midline incision was made with a 10 blade. Cautery was used for hemostasis. Cautery was then used to dissect down to the fascia. Fascia was nicked and elevated between 2 Kochers. Fascia was then incised using cautery. Peritoneum was tented between 2 Tiffany clamps and was incised using Metzenbaums. Peritoneum was then also opened utilizing cautery. At the beginning of the case, I only opened the upper midline incision, but for further visualization later in the case, the midline incision was extended to below the belly button. Of note, this did require incising previously deployed mesh. Once we entered the abdomen, we did have a clear space over the right upper quadrant, the liver and the stomach. The remainder of the abdomen was densely adhesed. The transverse colon omentum was found to be adhesed to an old hernia repair along the midline. This omentum was gently freed using a combination of Metzenbaums and cautery dissection. We continued to move inferiorly in the abdomen, slowly opening the incision and the mesh as I proceeded. At about the level of the umbilicus, a dense adhesion was identified which contained a portion of the small bowel. There was essentially no plane between the peritoneum and the small bowel. Care was taken to remove this portion of the small bowel from the mesh but several small enterotomies were created on this knuckle of bowel. Once the small bowel was completely freed from this area, we then identified that the right colon was also densely adhesed down to the sigmoid colon. Lysis of adhesions here was also carefully undertaken, utilizing Metzenbaums until the entirety of the right colon and the transverse colon were completely freed. I was then able to completely eviscerate the small bowel. It was run from the ligament of Treitz to the terminal ileum and about the mid portion of the ileum, we reidentified the knuckle of bowel, which had been adhesed to the anterior abdominal wall where multiple dense adhesions in this area including to other loops of small bowel. A tedious lysis of adhesions was undertaken using Metzenbaums until all of the small bowel was free. No further injuries were created on the small bowel. At this point, I then could run the small bowel all the way to the terminal ileum. Colon was palpated in its entirety. No masses or injuries were identified. We then returned our attention to the portion of the small bowel, which needed to be removed. It was only approximately 6 inches of small bowel. Tiffany clamp was used to make a window in the mesentery. A 60 mm blue load CAMRYN stapler was then used to transect the bowel. This was repeated on the distal loop of the bowel. LigaSure was then used to serially clamp and [facility] [address] [place] [address] OPERATIVE REPORT Name: CUCO ALEXANDER Room: [address] IN [facility].#: [id number] Admission: 10/16/18 Attend Phys: Mindy Coley MD Discharge: Date of : 41 Report #: [id number] cauterize the mesentery. Specimen was then handed off. 3-0 silk suture was used to align our limbs of small bowel, 2 Lambert stitches were placed. Heavy curved scissors were then used to transect the corners of our staple lines. A 60 mm CAMRYN blue load stapler was introduced and a [id number] anastomosis was created. Interior of the enterotomy was inspected. There was no bleeding noted. Enterotomy was aligned and closed using a 60 TA stapler. The defect in the mesentery was closed with multiple interrupted [id number]-pydif stitches of 3-0 silk. Small bowel was again run from the ligament of Treitz to the terminal ileum. No further issues were identified. Small bowel was allowed to return into its anatomical position. The abdomen was then copiously irrigated until clear. The colon was allowed again to fall into its anatomical position. A new NG tube had been placed by Anesthesia while we were working as the previous was defective. It was confirmed to be in place in the stomach. Kochers were then used to align our fascial defect. Fascia was then closed in a running fashion with two stitches of 2-0 Prolene with excellent approximation of the fascia. At this point, 30 mL of 0.5% Marcaine were injected along the fascia. Wound was irrigated. It was then closed in a layered fashion using deep and superficial stitches of 3-0 Vicryl in inverted interrupted fashion. Skin wound was closed with cristobal. Prevena VAC was applied. The patient was then allowed to awake from anesthesia and was extubated without difficulty. Counts were correct x 2 at the conclusion of the case. She was then transported to the recovery room with no further issues. <ELECTRONICALLY SIGNED> By: Aleida Carrera DO 10/27/18 1707 1155 [id number] Carrera DO /nt
--- NOTE | 2018-10-27 17:30 | NUR ---
SPOKE WITH DR FAIRCHILD REGARDING LOW URINE OUTPUT AND INABILITY TO OBTAIN AN ADEQUATE BP ON RIGHT ARM. UNABLE TO PALPATE RADIAL PULSE TO RIGHT ARM AND PATIENT STATING SHE IS HAVING EXCRUTIATING PAIN TO RIGHT ARM. ORDERS RECEIVED TO FLUSH TURCIOS CATHETER AND TRANSFER TO ICU. PATIENT'S SON NOTIFIED OF PATIENT BEING TRANSFERRED TO ICU.
[2018-10-27 17:56] LABS: HEMATOCRIT 32.9 % (37.0-47.0); HEMOGLOBIN 10.7 gm/dL (12.0-15.0); MCH 27.5 pg (26.0-34.0); MCHC 32.4 g/dL (28.0-37.0); MPV 6.9 fl. (7.2-11.1); RBC 3.88 mil/uL (4.20-5.00); RDW-CV 21.9 % (10.5-14.5)
[2018-10-27 18:09] LABS: WBC 40.7 thou/uL (4.0-11.0)
--- NOTE | 2018-10-27 18:09 | NUR ---
PATIENT TRANSFERRED TO ICU ROOM 3 VIA BED WITH NURSING DOG CATCHER AT THIS TIME. REPORT GIVEN TO MACHELLE RIGGINS WHO WILL BE ASSUMING CARE OF PATIENT.
[2018-10-27 18:16] LABS: ALBUMIN 1.8 g/dL (3.4-5.0); CALCIUM 7.1 mg/dL (8.5-10.1); CREATININE 1.4 mg/dL (0.6-1.3); POTASSIUM 4.5 mmol/L (3.5-5.1); TOTAL BILIRUBIN 0.5 mg/dL (<0.1-1.0); TOTAL PROTEIN 4.2 g/dL (6.4-8.2)
[2018-10-27 18:37] LABS: BE -5.1 mmol/L (-2 to +3); PO2 65.1 mmHg (75.0-100.0); pH 7.349 (7.340-7.450)
--- NOTE | 2018-10-27 18:50 | NUR ---
PATIENT TRANSFERED TO THE FLOOR AT 1745. PATIENT AOX4, FORGETFUL. WRITHING IN PAIN. STATES PAIN 10/10 IN RIGHT ARM. PATIETN HAD EXPLORATORY LAP EARLIER TODAY. DENIES PAIN IN ABDOMEN. ALFA VAC NOTED TO ABDOMEN. DR WANG AND JAYLEN NOTIFIED. STAT XRAY COMPLETED. STAT ARTERIAL US IN PROGRESS. STAT ABG COMPLETED, DR YORK READ RESULTS. INCREASED O2 TO 6L NC. STAT LACTIC ACID TO BE DRAWN.
[2018-10-27 19:52] LABS: APTT 35.5 Seconds (25.0-31.3); INR 1.5; PROTIME 15.6 Seconds (9.20-11.50)
[2018-10-27 22:10] LABS: HEMATOCRIT 30.1 % (37.0-47.0); HEMOGLOBIN 9.8 gm/dL (12.0-15.0)
[2018-10-28] VITALS (47 sets, daily range): BP systolic 81–121; BP diastolic 29–86
[2018-10-28 04:32] LABS: CALCIUM 7.1 mg/dL (8.5-10.1); CREATININE 1.7 mg/dL (0.6-1.3); MAGNESIUM 1.4 mg/dL (1.8-2.4); PHOSPHORUS* 2.6 mg/dL (2.5-4.9)
[2018-10-28 04:35] LABS: BASOPHILS 0.1 %; HEMATOCRIT 32.1 % (37.0-47.0); HEMOGLOBIN 10.3 gm/dL (12.0-15.0); LYMPHOCYTES 1.2 %; MCH 27.7 pg (26.0-34.0); MCHC 32.1 g/dL (28.0-37.0); MCV 86.2 fL (80.0-100.0); MONOCYTES 2.7 %; MPV 7.6 fl. (7.2-11.1); NUCLEATED RBCS 0 /100WBC; PLATELET COUNT* 224 thou/uL (150-400); RBC 3.73 mil/uL (4.20-5.00); RDW-CV 22.2 % (10.5-14.5)
[2018-10-28 04:37] LABS: ABSOLUTE BASOPHILS 0.1 thou/uL (0.0-0.2); ABSOLUTE LYMPHOCYTES 0.7 thou/uL (0.8-5.3); ABSOLUTE MONOCYTES 1.7 thou/uL (0.0-1.2); ABSOLUTE NEUTROPHILS 58.8 thou/uL (1.6-8.1)
[2018-10-28 04:40] LABS: WBC 61.3 thou/uL (4.0-11.0)
[2018-10-28 04:57] LABS: POTASSIUM 5.5 mmol/L (3.5-5.1)
--- NOTE | 2018-10-28 08:51 | NUR ---
PATIENT NG IN RIGHT NARE NOTED AT 54 THIS AM. PREVIOUS CHARTING STATED NG WAS AT [address] YORK PAGED. RESIDENT DR FAIRCHILD RETURNED PHONE CALL. ORDERS FOR KUB COMPLETED. KUB STATES NG TUBE IS IN CORRECT POSITION IN DISTAL STOMACH. NG TUBE REMAINS AT 54 AT THIS TIME.
[2018-10-28 10:05] LABS: HEMATOCRIT 29.9 % (37.0-47.0); HEMOGLOBIN 9.8 gm/dL (12.0-15.0)
--- NOTE | 2018-10-28 10:45 | NUR ---
PT HAD EXP LAPAROTOMY AND SMALL BOWEL RESECTION ON 10/27, THEN HAD RIGHT BRACHIAL ARTERY THROMBECTOMY FOR ACUTELY ISCHEMIC ARM. PT CONTINUES TO C/O ARM PAIN. PRIOR TO THIS ADMISSION PT WAS LIVING AT HOME AND DOING FAIRLY WELL AT HOME. WHEN MEDICALLY APPROPRIATE, WILL NEED P.T. AND O.T. TO HELP DETERMINE DISCHARGE NEEDS.
--- NOTE | 2018-10-28 11:53 | CON ---
[address] [address] CONSULTATION Name: CUCO ALEXANDER Room: [address] IN M.R.#: [id number] Admission: 10/16/18 Attend Phys: Mindy Coley MD Discharge: Date of : 41 Report #: [id number] THIS REPORT FOR: //name// CC: Leonidas Coley DATE OF SERVICE: 10/27/2018 VASCULAR SURGERY CONSULTATION REQUESTING PHYSICIAN: Dr. Carrera. REASON FOR CONSULTATION: Ischemic right arm. HISTORY OF PRESENT ILLNESS: The patient is a 78-year-old white female who has breast cancer, on chemo. She had a small-bowel obstruction. She underwent lysis of adhesions with resection of small bowel today. Postoperatively, she complained of right arm pain. Further workup revealed an acutely ischemic right arm. Ultrasound confirmed right brachial thromboembolism. This is likely from the patient not being anticoagulated. She has been refusing her Lovenox and she has cancer and chemotherapy. A 12-point review of systems was reviewed and negative as per HPI. PAST MEDICAL HISTORY: Significant for anemia, COPD, fractured fibula, hyponatremia, hypoxic, malignant ascites, paresthesias, respiratory distress, respiratory failure, small-bowel obstruction, tachycardia, breast cancer, lung cancer, hypertension, C. diff colitis and cirrhosis. PAST SURGICAL HISTORY: Significant for appendectomy, hysterectomy, cyst removal and small bowel resection today as well as hernia repair in the past. ALLERGIES: INCLUDE CODEINE, HYDROCHLOROTHIAZIDE, MORPHINE, AND TRIAMTERENE. MEDICATIONS AT HOME: Include prednisone, ipratropium/albuterol nebulizer. PHYSICAL EXAMINATION: GENERAL: The patient in no acute distress. She is alert and oriented. VITAL SIGNS: Afebrile. Vital signs stable. HEENT: Normocephalic, atraumatic. NECK: Supple. HEART: Regular. LUNGS: equal. ABDOMEN: Distended. She has a wound VAC in place. EXTREMITIES: Right arm is ischemic. She has no sensory or motor function of her right arm. There [place] [address] CONSULTATION Name: CUCO ALEXANDER Room: [address]#: [id number] Admission: 10/16/18 Attend Phys: Mindy Coley MD Discharge: Date of : 41 Report #: [id number] ASSESSMENT: Acutely ischemic right arm due to thromboembolism. PLAN: We will take the patient emergently to the OR for embolectomy. The patient has been started on heparin drip. <ELECTRONICALLY SIGNED> By: Montrell Jackson DO 10/28/18 1153 2114 [id number] Moore MD /nt
--- NOTE | 2018-10-28 11:53 | OP ---
[address] [address] OPERATIVE REPORT Name: CUCO ALEXANDER Room: [address] IN M.R.#: [id number] Admission: 10/16/18 Attend Phys: Mindy Coley MD Discharge: Date of : 41 Report #: [id number] THIS REPORT FOR: //name// CC: Leonidas Coley DATE OF SERVICE: 10/27/2018 PREOPERATIVE DIAGNOSIS: Acutely ischemic right arm. POSTOPERATIVE DIAGNOSIS: Acutely ischemic right arm. PROCEDURE: 1. Right brachial thromboembolectomy. 2. Right ulnar thromboembolectomy from a risk cut down. SURGEON: Richie Moore MD HEAD GRINDER: Dr. Morales. COMPLICATIONS: None. ESTIMATED BLOOD LOSS: 20 mL. SPECIMEN: Includes thromboembolism. ANESTHESIA: General. INDICATIONS FOR PROCEDURE: The patient is a very pleasant 78-year-old white female who experienced an acutely ischemic right arm after abdominal surgery today. She has cancer and has been refusing her anticoagulation. This is likely the cause of her thromboembolism. Informed consent was obtained from the patient with risks including but not limited to bleeding, infection, need for further surgery, pain, , heart attack, stroke, amputation. The patient does have a significant risk of amputation and failed revascularization given the time course of her symptoms is approximately 6+ hours and she now has no sensory or motor function of her right hand. The patient understands these risks and is agreeable to proceed. DESCRIPTION OF PROCEDURE: The patient was taken to the OR and placed in the supine position. General anesthesia was initiated and timeout was performed. Right arm was prepped and draped. We created a longitudinal incision just distal to the antecubital fossa. Sharp and blunt dissection were carried down to the brachial artery. This was controlled as well as branches of the radial and ulnar arteries. We created a transverse arteriotomy at the branch point. I passed a Can proximal and removed a large amount of thrombus with a #[address] [place] [address] OPERATIVE REPORT Name: CUCO ALEXANDER Room: [address] IN [facility].#: [id number] Admission: 10/16/18 Attend Phys: Mindy Coley MD Discharge: Date of : 41 Report #: [id number] Can. We now had pulsatile inflow bleeding. I passed the Can several more times and did not return any further thrombus. I then passed a #3 Can down the radial and ulnar arteries. I did not return any thrombus from these vessels. I closed my arteriotomy with interrupted 6-0 Prolene suture. We listened with the Doppler. The patient now had multiphasic flow throughout the brachial, radial and ulnar artery within the incision. I had a multiphasic radial signal at the wrist, but no ulnar signal. For this reason, I cut down the ulnar artery at the wrist. I controlled it proximally and distally. I created a transverse arteriotomy. I passed a #3 and #2 Can both proximally and distally. I did not return any further thrombus. I think the artery was likely in spasm. I closed my arteriotomy with interrupted Prolene 6-0 suture. We irrigated the wounds with antibiotic saline and controlled bleeding as needed with electrocautery, ties, clips and Carrie. We closed the wound in multiple layers using Vicryl and Monocryl stitches, dressed the incisions with Dermabond. The patient tolerated the procedure well and was taken alert and awake to recovery room in good condition. All needle and sponge counts were correct. Plan will be to keep her on heparin drip. She needs long-term anticoagulation. We will warm her hand in attempt to break the spasm. <ELECTRONICALLY SIGNED> By: Montrell Jackson DO 10/28/18 1153 2117 [id number] Moore MD /nt
--- NOTE | 2018-10-28 12:45 | NUR ---
PATIENT HIT CALL LIGHT. NURSE ENTERED ROOM. PATIENT STATED PAIN IN ARM WAS PRESENT AGAIN 01/08. NURSE ATTEMPTED TO DOPPLER RADIAL AND BRACHIAL PULSES WITH NO SUCCESS. DR MOHAN PAGED. ORDERS FOR STAT ARTERIAL US DUPLEX ENTERED. AWAITING RADIOLOGY.
--- NOTE | 2018-10-28 13:34 | NUR ---
APTT RESULTED SECOND TIME GREATER THAN 198. SHUT OFF. DR NOBLE PAGED.
--- NOTE | 2018-10-28 14:41 | NUR ---
HEPARIN GTT RESTARTED. REDUCED GTT BY 3/UNITS/KG/HR. DRIP WAS AT 691 UNITS. REDUCED BY 174 UNITS. GTT CURRENTLY AT 517 UNITS/HR.
[2018-10-28 16:21] LABS: HEMATOCRIT 30.5 % (37.0-47.0); HEMOGLOBIN 9.9 gm/dL (12.0-15.0)
--- NOTE | 2018-10-28 18:14 | NUR ---
PER VASCULAR, PATIENT HAS FLOW TO RIGHT EXTREMITY. MAY BE SPASMING AND HARD TO DOPPLER. EXTREMITY AND FINGERS WARM. ABLE TO STAFF TRAINER. PATIENT INCREASED URINE OUTPUT TO 200 ML THIS SHIFT. 300 ML OUT OF NG TUBE. NG TUBE REMAINS AT 54 TO RIGHT NARE. PATIENT GIVEN MOUTH SWABS IN MODERATION FOR DRY MOUTH. PATIENT COOPERATIVE WITH CARE. FAMILY UPDATED THIS SHIFT.
[2018-10-28 22:33] LABS: HEMATOCRIT 30.2 % (37.0-47.0); HEMOGLOBIN 9.8 gm/dL (12.0-15.0)
[2018-10-29] VITALS (16 sets, daily range): BP systolic 103–164; BP diastolic 30–67
[2018-10-29 04:48] LABS: HEMATOCRIT 28.7 % (37.0-47.0); HEMOGLOBIN 9.2 gm/dL (12.0-15.0); MCH 27.2 pg (26.0-34.0); MCHC 32.1 g/dL (28.0-37.0); MCV 84.6 fL (80.0-100.0); MPV 7.9 fl. (7.2-11.1); RBC 3.4 mil/uL (4.20-5.00); RDW-CV 23.1 % (10.5-14.5)
[2018-10-29 04:52] LABS: WBC 46.7 thou/uL (4.0-11.0)
[2018-10-29 04:59] LABS: CALCIUM 6.6 mg/dL (8.5-10.1); CREATININE 2.5 mg/dL (0.6-1.3); POTASSIUM 4.8 mmol/L (3.5-5.1)
--- NOTE | 2018-10-29 07:24 | NUR ---
ASSESSMENT CHARTED. PATIENT STATUS REMAINED STABLE DURING SHIFT. LAB VALUES RETURNED FOR APTT. REPORTED ABOVE 198.4. CALLED RESULTS TO SURGERY AND VASCULAR FOR ADDITONAL ORDERS. STILL WAITING FOR CALLS TO RETURN. PATIENT'S HEPARIN DRIP ON HOLD PER PROTOCOL. PATIENT REMAINING STABLE POST THROMBECTOMY. PATINET'S KIDNEY FUNCTION INCREASING. URINE OUTPUT ONLY 100 DURING SHIFT. WILL CONTINUE TO MONITOR.
[2018-10-29 10:35] LABS: URINE BILIRUBIN NEGATIVE (Negative); URINE BLOOD 3+ (Negative); URINE CLARITY SL CLOUDY; URINE COLOR YELLOW; URINE GLUCOSE-RANDOM NEGATIVE (Negative); URINE KETONES TRACE (Negative); URINE LEUKOCYTES-REFLEX NEGATIVE (Negative); URINE NITRITE-REFLEX NEGATIVE (Negative); URINE PROTEIN 2+ (Negative); URINE UROBILINOGEN 0.2 E.U./dl (0.2-1.0)
[2018-10-29 10:48] LABS: SQUAMOUS NONE SEEN /LPF (0-3)
[2018-10-29 10:49] LABS: URINE WBC-REFLEX 0-5 Rare /HPF (0-5)
[2018-10-29 10:50] LABS: MUCUS None Seen strn/LPF (None Seen); URINE RBC 3-10 Few /HPF (0-2)
[2018-10-29 10:51] LABS: AMORPHOUS URATES Moderate /LPF (None Seen); FINE GRANULAR CASTS 0-3 Few /LPF (None Seen)
--- NOTE | 2018-10-29 11:00 | NUR ---
PATIENT BEGAN HAVING SEVERE RIGHT ARM PAIN AROUND 0930 THIS AM, MEDICATION WAS GIVEN AND PULSES CHECKE ON RIGHT ARM BUT UNABLE TO DOPPLER. ANOTHER NURSE CHECKED DOPPLER ON RIGHT ARM AND UNABLE TO DOPPLER WELL. VASCULAR SURGERY CALLED, RODRIGO LANGE ORDERED FOR A STAT RIGHT ARM DOPPLER, DOPPLER COMPLETED AND REPORT CALLED TO THIS RN, CLOTS IN RIGHT ARM. RODRIGO SLABBER LIGHT AT BEDSIDE AROUND 1100 AND DOPPLER UNABLE TO FIND. STAT CTA ORDERED PER RODRIGO LANGE AND DR MOHAN.
[2018-10-29 11:21] LABS: HEMATOCRIT 31.9 % (37.0-47.0); HEMOGLOBIN 9.7 gm/dL (12.0-15.0)
[2018-10-29 14:56] LABS: CALCIUM 6.6 mg/dL (8.5-10.1); CREATININE 2.6 mg/dL (0.6-1.3); PHOSPHORUS* 4.7 mg/dL (2.5-4.9); URIC ACID* 4.9 mg/dL (2.6-7.2)
--- NOTE | 2018-10-29 15:04 | NUR ---
aptt came back at 118.6, orders to hold heparin for 1 hour and resume at 3 units/kg/hour lower.
--- NOTE | 2018-10-29 15:55 | NUR ---
PATIENT BACK TO OR AT THIS TIME FOR RIGHT UPPER EXTREMITY THROMBECTOMY
[2018-10-29 16:00] LABS: HEMATOCRIT 24.8 % (37.0-47.0)
[2018-10-29 17:52] LABS: SMEAR FOR EOSINOPHILS No Eosinophils Seen
--- NOTE | 2018-10-29 18:06 | NUR ---
PATIENT BACK FROM SURGERY, CODED RIGHT AFTER SURGERY IN OR FOR 3 MINUTES, NO MEDICATIONS GIVEN, JUST 3 MINUTUES OF COMPRESSIONS. SURGERY CALLED AND UPDATED. DR MOHAN UPDATED. ZAINAB SAW PATIENT IN OR. ORDERS TO CONSULT PULMONARY FOR VENTILATOR MANAGMENT AND SEDATION. HEPARIN RESUMED. PULSE ON RIGHT ARM DOPPLED.
[2018-10-29 18:40] LABS: HEMATOCRIT 23.1 % (37.0-47.0); HEMOGLOBIN 7.3 gm/dL (12.0-15.0); MCH 27.8 pg (26.0-34.0); MCHC 31.5 g/dL (28.0-37.0); MCV 88.1 fL (80.0-100.0); MPV 7.9 fl. (7.2-11.1); RBC 2.63 mil/uL (4.20-5.00); RDW-CV 22.7 % (10.5-14.5)
[2018-10-29 18:43] LABS: WBC 46.9 thou/uL (4.0-11.0)
[2018-10-29 18:50] LABS: PO2 116.2 mmHg (75.0-100.0)
[2018-10-29 18:52] LABS: pH 7.045 (7.340-7.450)
[2018-10-29 18:53] LABS: PCO2 67.8 mmHg (35.0-45.0)
[2018-10-29 18:58] LABS: ALBUMIN 2.1 g/dL (3.4-5.0); ALKALINE PHOSPHATASE 89 U/L (46-116); ANION GAP 8 mmol/L (7-16); BUN 45 mg/dL (7-18); CALCIUM 6.5 mg/dL (8.5-10.1); CHLORIDE 109 mmol/L (98-107); CO2 22 mmol/L (21-32); CREATININE 2.6 mg/dL (0.6-1.3); GLUCOSE 108 mg/dL (70-99); POTASSIUM 5.5 mmol/L (3.5-5.1); SGOT 175 U/L (15-37); SGPT 51 U/L (30-65); SODIUM 139 mmol/L (136-145); TOTAL BILIRUBIN 0.4 mg/dL (<0.1-1.0); TOTAL PROTEIN 4.6 g/dL (6.4-8.2); TROPONIN-I LEVEL <0.06 ng/mL (<0.06)
--- NOTE | 2018-10-29 19:38 | 2DMMODE ---
[place] [address] 2 D/M-MODE ECHOCARDIOGRAM Name: SARAI ALEXANDERIA Larry Room: [address] IN [facility]#: [id number] Admission: 10/16/18 Attend Phys: Mindy Coley, Discharge: Date of : 41 Date of Service: 10/29/18 193 Report #: [id number] THIS REPORT FOR: //name// APPROVED REPORT Study performed: 10/29/2018 18:40:32 EXAM: Comprehensive 2D, Doppler, and color-flow Echocardiogram Patient Location: In-Patient Room #: 003 Status: routine BSA: 1.58 HR: 130 bpm BP: 108/30 mmHg Rhythm: Tachycardia Other Information Study Quality: Good Indications Brachial artery thrombus rule out thrombus in heart 2D Dimensions IVSd: 8.96 (7-11mm) LVOT Diam: 19.63 (18-24mm) LVDd: 33.51 mm PWd: 8.82 (7-11mm) Ascending Ao: 27.18 (22-36mm) LVDs: 19.52 (25-40mm) Aortic Root: 27.09 mm Volumes Left Atrial Volume (Systole) LA ESV Index: 20.10 mL/m2 Aortic Valve AoV Peak Efra.: 1.77 m/s AO Peak Gr.: 12.48 mmHg LVOT Max P.90 mmHg AO Mean Gr.: 6.97 mmHg LVOT Mean P.10 mmHg LVOT Max V: 1.11 m/s AO V2 VTI: 24.83 cm LVOT Mean V: 0.65 m/s JOSÉ (VTI): 1.97 cm2 LVOT V1 VTI: 16.16 cm Pulmonary Valve PV Peak Efra.: 1.15 m/s PV Peak Gr.: 5.28 [place] [address] 2 D/M-MODE ECHOCARDIOGRAM Name: CUCO ALEXANDER Room: [address] IN [facility]#: [id number] Admission: 10/16/18 Attend Phys: Mindy Coley, Discharge: Date of : 41 Date of Service: 10/29/18 193 Report #: [id number] RAP Estimate: 5.00 mmHg TR Peak Gr.: 34.99 mmHg RVSP: 40.00 mmHg PA Pressure: 40.00 mmHg Left Ventricle The left ventricle is normal size. There is normal LV segmental wall motion. There is normal left ventricular wall thickness. Left ventricular systolic function is hyperdynamic. LVEF is >70%. Right Ventricle The right ventricle is normal size. The right ventricular systolic function is normal. Atria The left atrium size is normal. The right atrium size is normal. Aortic Valve The aortic valve is normal in structure. No aortic regurgitation is present. There is no aortic valvular stenosis. Mitral Valve The mitral valve is normal in structure. Trace mitral regurgitation. No evidence of mitral valve stenosis. Tricuspid Valve The tricuspid valve is normal in structure. Mild tricuspid regurgitation. The RVSP is 40-45 mmHg. Pulmonic Valve The pulmonary valve is normal in structure. There is no pulmonic valvular regurgitation. Great Vessels The aortic root is normal in size. The inferior vena cava is not well visualized. Pericardium There is no pericardial effusion. <Conclusion> The left ventricle is normal size. There is normal left ventricular wall thickness. Left ventricular systolic function is hyperdynamic. LVEF is >70%. [place] [address] 2 D/M-MODE ECHOCARDIOGRAM Name: CUCO ALEXANDER Room: [address] IN [facility].#: [id number] Admission: 10/16/18 Attend Phys: Mindy Coley, Discharge: Date of : 42 Date of Service: 10/29/181937 Report #: [id number] Trace mitral regurgitation. Mild tricuspid regurgitation. The RVSP is 40-45 mmHg. <ELECTRONICALLY SIGNED> By: Tyler Abdi MD, FACC 10/29/181937 37 1938 Tyler Abdi MD, FACC /INF
[2018-10-29 20:19] LABS: APTT 198.4 Seconds (25.0-31.3); INR 3.1
--- NOTE | 2018-10-29 20:41 | NUR ---
PAGED DR. MIR FOR CRITICAL APPT. ORDERS TO STOP HEPARIN FOR ONE HOUR THEN RESUME SAME RATE @ 226 UNIT/HR. REDRAW APPT IN 4HR THEN FOLLOW PROTOCOL AFTER THAT. WILL CONTINUE TO MONITOR.
[2018-10-30] VITALS (31 sets, daily range): BP systolic 104–177; BP diastolic 52–78
[2018-10-30 00:11] LABS: HEMATOCRIT 21.2 % (37.0-47.0)
[2018-10-30 00:29] LABS: HEMOGLOBIN 6.8 gm/dL (12.0-15.0)
--- NOTE | 2018-10-30 02:47 | NUR ---
CALLED DR. MIR FOR CHANGE IN PT CONDITION. RIGHT ARM NOW COLD TO TOUCH, PURPLE DISCOLORATION, NO PULSES PRESENT WITH DOPPLER. NO FURTHER ORDERS RECEIEVED WANTS TO CONTINUE TO SAME TREATMENTS AND WILL ASSESS IN THE A.M
[2018-10-30 04:58] LABS: BE -8.9 mmol/L (-2 to +3); PCO2 37.8 mmHg (35.0-45.0)
[2018-10-30 05:01] LABS: PO2 177.2 mmHg (75.0-100.0); pH 7.276 (7.340-7.450)
--- NOTE | 2018-10-30 05:37 | NUR ---
pt not progressing towards goals. sinues tachy on monitor HR 95-100. received total of 2L per DrMigue order last night. pt hgb 6.8 got one unit of blood waiting on lab for new hgb. pulse on right hand absent around [address] Moore aware no orders given. pt midline incision site intact prevena wound vac in place no drainage present. pt abd distended and firm to touch DrMigue aware ordered KUB results were unchanged/unremarkable. pt received several fentanyl IV push per pain control/sedation. pt will close mouth and grimce during oral care. pt son fani aware of current condition, no concerns at this time will continue to update family.
[2018-10-30 06:55] LABS: HEMATOCRIT 25.6 % (37.0-47.0); HEMOGLOBIN 8.4 gm/dL (12.0-15.0); MCH 27.9 pg (26.0-34.0); MCHC 32.7 g/dL (28.0-37.0); MCV 85.2 fL (80.0-100.0); MPV 8.3 fl. (7.2-11.1); NUCLEATED RBCS 0 /100WBC; PLATELET COUNT* 68 thou/uL (150-400); RDW-CV 21.2 % (10.5-14.5)
[2018-10-30 07:05] LABS: ALBUMIN 2.4 g/dL (3.4-5.0); CALCIUM 6.3 mg/dL (8.5-10.1); CREATININE 2.9 mg/dL (0.6-1.3); PHOSPHORUS* 5.1 mg/dL (2.5-4.9)
[2018-10-30 07:06] LABS: WBC 16.8 thou/uL (4.0-11.0)
[2018-10-30 07:10] LABS: POTASSIUM 5.9 mmol/L (3.5-5.1)
[2018-10-30 07:41] LABS: ALBUMIN 2.5 g/dL (3.4-5.0); CALCIUM 6.2 mg/dL (8.5-10.1); CREATININE 2.8 mg/dL (0.6-1.3); MAGNESIUM 2.1 mg/dL (1.8-2.4); TOTAL BILIRUBIN 0.8 mg/dL (<0.1-1.0); TOTAL PROTEIN 4.6 g/dL (6.4-8.2)
[2018-10-30 07:42] LABS: POTASSIUM 5.5 mmol/L (3.5-5.1)
[2018-10-30 07:48] LABS: ABSOLUTE LYMPHOCYTES 0.2 thou/uL (0.8-5.3); ABSOLUTE MONOCYTES 0.3 thou/uL (0.0-1.2); ABSOLUTE NEUTROPHILS 16.3 thou/uL (1.6-8.1); METAMYELOCYTES 1 %
[2018-10-30 07:49] LABS: PLATELET ESTIMATE DECREASED; TOXIC GRANULATION 3+
[2018-10-30 07:50] LABS: HYPOCHROMASIA 2+; MICROCYTES 2+
--- NOTE | 2018-10-30 08:01 | OP ---
[address] [address] OPERATIVE REPORT Name: CUCO ALEXANDER Room: [address] IN .R.#: [id number] Admission: 10/16/18 Attend Phys: Mindy Coley MD Discharge: Date of : 42 Report #: [id number] THIS REPORT FOR: //name// CC: Leonidas Coley DATE OF SERVICE: 10/29/2018 PREOPERATIVE DIAGNOSIS: Acute right upper extremity ischemia with re-thrombosis of her brachial artery. POSTOPERATIVE DIAGNOSIS: Acute right upper extremity ischemia with re-thrombosis of her brachial artery. OPERATION: Right brachial, radial and ulnar artery open thrombectomy. SURGEON: Montrell Jackson DO. HARP REPAIRER: Yousuf Chang, GHASSANY2. ANESTHESIA: General LMA. ESTIMATED BLOOD LOSS: 100 mL. FLUIDS: About 250 crystalloid. URINE OUTPUT: None. SPECIMENS: None. COMPLICATIONS: None. FINDINGS: She had re-thrombosis of her right brachial artery that was clearly ischemic, this thrombectomized well. Good radial and ulnar artery Doppler signals after samaritan of flow. Denies any technical issue or reason from her previous thrombectomy on Sunday as to why she re-thrombosed. CLINICAL HISTORY: The patient who on Sunday underwent an open general surgery and postoperatively, she was found to have an ischemic right upper extremity. My partner subsequently did an open brachial and ulnar artery thrombectomy. Over the ensuing day, she was kept on heparin, but subsequently re-thrombosed her brachial artery and had recurrent ischemic symptoms with neuromotor deficits today. We proceeded today with an urgent brachial artery thrombectomy for revascularization. DETAILS OF PROCEDURE: After informed consent was obtained, the patient was [address] [address] OPERATIVE REPORT Name: CUCO ALEXANDER Room: [address] IN [facility].#: [id number] Admission: 10/16/18 Attend Phys: Mindy Coley MD Discharge: Date of : 41 Report #: [id number] taken to the operating room and placed on the OR bed in the supine position. She was administered LMA anesthesia by anesthesia team. Right upper extremity was prepped and draped in usual sterile fashion. Full timeout was performed identifying correct patient and procedure. Next, previous brachial artery incision was opened. Dissection was carried down through skin and subcutaneous tissue. The brachial artery was identified and circumferentially mobilized and all branches in the brachial artery controlled with Silastic vessel loops in Galaviz fashion. I made a transverse arteriotomy in its trifurcation point and passed a #3 Can catheter distally down the ulnar and radial arteries with return of small amount of thrombus and a small amount of backbleeding. I then passed the Can catheter up the proximal brachial artery, return of moderate amount of thrombus and had samaritan of good inflow. It was noted that on her CTA that was obtained today that she had a high-grade subclavian origin stenosis with retrograde vertebral artery flow and her brachial artery flow was consistent with these findings. I passed Can several times proximally until I had several clean passes. I then made small incisions over the ulnar and radial arteries at the wrist just to make sure that there was good flow there. Once I was satisfied with the flow, the hand was pink and warm. She had good Doppler signals. I then irrigated the wounds and closed them with 3-0 Vicryl and 4-0 Monocryl in subcutaneous fashion. Dermabond was applied. All sponge, sharp instrument counts reported correct x 2, tolerated the procedure well and was transferred to recovery in stable condition. <ELECTRONICALLY SIGNED> By: Montrell Jackson DO 10/30/18 0801 1719 1826Aleandra Jackson DO /nt
--- NOTE | 2018-10-30 11:06 | PATH ---
[address] [address] PATHOLOGY RPT PROCEDURE Name: SULTANA JENNINGS Room: [address] IN .R.#: [id number] Admission: 10/16/18 Date of : 41 Discharge: Report #: [id number] Path Case #: [id number] LCA Accession Number: [id number] . 01 Material submitted: . arm - RIGHT BRACHIAL THROMBUS. Modifiers: right . 01 Clinical history: . Right brachial thrombus . 02 Diagnosis: Right brachial thrombus: - Thrombus. (JORGE:neil; 10/29/2018) QMS/10/29/2018 . 02 Electronically signed: . Elton Swartz MD, Pathologist NPI- [id number] . 01 Gross description: . The specimen is received in formalin, labeled "Sultana Jennings, right brachial thrombus", are two roughly cylindrical segments of hemorrhagic tissue measuring 3.7 cm in length with an average 0.2 cm diameter and 1.5 cm long with an average diameter of 0.1 cm. The specimen is serially sectioned and entirely submitted in A1. (SWS; 10/28/2018) SHS/SHS . 02 Pathologist provided ICD-10: I82.601 . 02 CPT . 865881 Specimen Comment: A courtesy copy of this report has been sent to Specimen Comment: [phone], , . Specimen Comment: Report sent to ,DR CHOWDHURY / DR ALMODOVAR Performed at: [address], [place], [place] [id number] MD Filemon Moses MD Phone: [phone] Performed at: 02 [facility] [address], [place], [place] [id number] MD Elton Swartz MD Phone: [phone]
--- NOTE | 2018-10-30 11:06 | PATH ---
[address] [address] PATHOLOGY RPT PROCEDURE Name: SULTANA JENNINGS Room: [address] IN .R.#: [id number] Admission: 10/16/18 Date of : 42 Discharge: Report #: [id number] Path Case #: [id number] LCA Accession Number: [id number] . 01 Material submitted: . small bowel - SMALL BOWEL . 01 Clinical history: . Small bowel obstruction . 02 Diagnosis: Small bowel: - Segment of benign small intestine with open defect exposing mucosa and with marked serosal fibrous adhesions having foreign body type granulomata entrapping birefringent foreign material. (See comment). . (JORGE:mmdaisy; 10/29/2018) QLM/10/29/2018 . 02 Comment: Sections of the bowel taken adjacent to the open defect show viable tissues without significant acute inflammation and therefore the open defect is attributed to intraoperative manipulation, without preoperative perforation. Discussed with Dr. Carrera on afternoon of 10/29/2018. (JORGE:servando; 10/29/2018) . 02 Electronically signed: . Elton Swartz MD, Pathologist NPI- [id number] . 01 Gross description: . Received in formalin, labeled "Sultana Jennings, small bowel", is a U-shaped, adhered, unoriented segment of bowel measuring 16.0 cm in length with abundant amount of attached mesenteric fat. Both the margins are closed by staple lines, with an internal circumference of 2.9 cm (margin #1) and 5.6 cm (margin #2) and are viable. The mid segment serosa (up to 10 cm-inked green) is indurated, hemorrhagic, and covered by possible fibrinopurulent material with a possible perforation. Within this portion is a transmural defect measuring 0.9 x 0.8 cm showing victor, smooth bordered mucosa (inked blue). The remaining mucosa is victor and focally edematous. The wall thickness ranges from 0.1 cm up to 0.2 cm. Cross sections of the mesenteric vessels reveal blood clot in mesenteric blood vessels. Photographs are taken. Service Porter sections are submitted as follows: A1. Margin #1, en face A2. Margin #2, en face A3-A5. Bowel adhesion with hemorrhagic, fibrinopurulent exudate [place] [address] PATHOLOGY RPT PROCEDURE Name: SULTANA JENNINGS Room: [address] IN ..#: [id number] Admission: 10/16/18 Date of : 42 Discharge: Report #: [id number] Path Case #: [id number] A6. Transmural defect inked blue A7. Cross section of mesenteric vessels. (SWS; 10/28/2018) SHS/SHS . 02 Pathologist provided ICD-10: K56.50 . 02 CPT . 263664 Specimen Comment: A courtesy copy of this report has been sent to Specimen Comment: [phone], , . Specimen Comment: Report sent to ,DR CHOWDHURY / DR ALMODOVAR Performed at: [address] [facility] [address] [facility] [address], [place], [place] [id number] MD Filemon Moses MD Phone: [phone] Performed at: [address] [facility] [address] [address], [place], [place] [id number] MD Elton Swartz MD Phone: [phone]
[2018-10-30 11:44] LABS: HEMATOCRIT 25.3 % (37.0-47.0); HEMOGLOBIN 8.3 gm/dL (12.0-15.0)
[2018-10-30 13:39] LABS: ALBUMIN 2.1 g/dL (3.4-5.0); CALCIUM 6.1 mg/dL (8.5-10.1); CREATININE 3.1 mg/dL (0.6-1.3); POTASSIUM 4.4 mmol/L (3.5-5.1); TOTAL BILIRUBIN 0.6 mg/dL (<0.1-1.0); TOTAL PROTEIN 4.6 g/dL (6.4-8.2)
--- NOTE | 2018-10-30 16:36 | NUR ---
CALLED BMP TO DOCTOR ARREDONDO. LITTLE URINE OUTPUT THIS SHIFT AND CREATININE AND BUN TRENDING UP. POSSIBLE DIALYSIS TOMORROW, DR ARREDONDO WILL UPDATE SON TOMORROW WHEN HE SEES THE PATIENT.
[2018-10-30 17:39] LABS: HEMATOCRIT 24.3 % (37.0-47.0); HEMOGLOBIN 8.1 gm/dL (12.0-15.0)
[2018-10-30 18:32] LABS: INR 2.9
--- NOTE | 2018-10-30 18:48 | NUR ---
PATIENT SOMEWHAT PROGRESSED WELL TOWARDS GOALS TODAY. VITALS REMAIN STABLE THIS SHIFT. LOW URINE OUTPUT. SON IN TO VISIT TODAY. STILL NO PULSE ON RIGHT ARM AND HAND IS MORE BLUE/PURPLE AND COLD. KIMBERLEE ASSESSED PATIENT THIS AM AND NOTHING MORE TO DO BUT CONTINUE HEPARIN AND SUPPORT HER. POTENTIAL FOR DIALYSIS TOMORROW IF URINE OUTPUT DOES NOT INCREASE. BED IN LOWEST POSITION, GRINDER SET UP OPERATOR EXTERNAL IN PLACE.
[2018-10-31] VITALS (42 sets, daily range): BP systolic 92–157; BP diastolic 50–121
[2018-10-31 06:47] LABS: ABSOLUTE LYMPHOCYTES 0.2 thou/uL (0.8-5.3); ABSOLUTE MONOCYTES 0.6 thou/uL (0.0-1.2); BASOPHILS 0.3 %; EOSINOPHILS 0.2 %; HEMATOCRIT 23.8 % (37.0-47.0); HEMOGLOBIN 8.1 gm/dL (12.0-15.0); LYMPHOCYTES 1.9 %; MCH 28.5 pg (26.0-34.0); MCHC 34.2 g/dL (28.0-37.0); MCV 83.4 fL (80.0-100.0); MONOCYTES 5.5 %; MPV 9.5 fl. (7.2-11.1); NUCLEATED RBCS 0 /100WBC; PLATELET COUNT* 78 thou/uL (150-400); POLYS 92.1 %; RBC 2.85 mil/uL (4.20-5.00); RDW-CV 21.3 % (10.5-14.5); WBC 10.8 thou/uL (4.0-11.0)
[2018-10-31 06:55] LABS: BE -3.2 mmol/L (-2 to +3); PCO2 VENOUS 44.5 mmHg (41.0-51.0); PO2 VENOUS 162.3 mmHg (35.0-45.0)
[2018-10-31 07:49] LABS: CALCIUM 6.3 mg/dL (8.5-10.1); CREATININE 3.5 mg/dL (0.6-1.3); MAGNESIUM 2.1 mg/dL (1.8-2.4); TOTAL BILIRUBIN 0.5 mg/dL (<0.1-1.0); TOTAL PROTEIN 4.7 g/dL (6.4-8.2)
[2018-10-31 07:54] LABS: POTASSIUM 5.3 mmol/L (3.5-5.1)
[2018-10-31 08:10] LABS: CALCIUM 6.3 mg/dL (8.5-10.1); CREATININE 3.4 mg/dL (0.6-1.3); PHOSPHORUS* 4.7 mg/dL (2.5-4.9); POTASSIUM 5.2 mmol/L (3.5-5.1)
--- NOTE | 2018-10-31 09:59 | CON ---
[address] [address] CONSULTATION Name: CUCO ALEXANDER Room: [address] ADM IN M.R.#: [id number] Admission: 10/16/18 Attend Phys: Mindy Coley MD Discharge: Date of : 41 Report #: [id number] THIS REPORT FOR: //name// CC: Leonidas Coley TYPE OF REPORT: Nephrology consultation. CONSULTING PHYSICIAN: Mindy Coley M.D. REASON FOR CONSULTATION: Acute kidney injury. HISTORY OF PRESENT ILLNESS: The patient is a 78-year-old female with a history of breast cancer followed by Dr. Alston, currently on chemotherapy, was admitted with abdominal distention and discomfort. She was admitted on October 16. During the course of her hospital stay, she has been found to have a small-bowel obstruction, underwent small bowel resection and lysis of adhesions. She also developed a right brachial artery thrombosis and underwent emergent right thrombectomy. I am asked to see her because of her rise in serum creatinine, was running 0.5-0.7; on October 27, was 0.7 but jumped up to 1.4 later that day and today is up to 2.5. She has had some decreased urine output as well and now, has a recurrent thrombus in her right brachial artery with plans to do a CTA and possibly go back to the OR today. She, other than some discomfort in her arm and now some tachycardia, does not have any complaints. She has an NG in place and has put out about 200 mL over the last 12 hours from that. REVIEW OF SYSTEMS: Constitutional, psych, heme, eyes, ENT, respiratory, cardiac, GI, , endocrine, all negative except as documented above. PAST MEDICAL HISTORY: History of metastatic breast cancer, COPD, appendectomy, hysterectomy, history of hypertension and history of C. diff in July 2017. CURRENT MEDICATIONS: Reviewed. SOCIAL HISTORY: Previous history of tobacco use. FAMILY HISTORY: Positive for heart disease and hypertension. PHYSICAL EXAMINATION: VITAL SIGNS: Blood pressure is 111/39, pulse has been in the 120-130 range and temperature 36.4. GENERAL: No acute distress. EYES: Open. Ears externally normal. NECK: Supple. CARDIOVASCULAR: Tachycardic. LUNGS: Diminished breath sounds. ABDOMEN: [place] [address] CONSULTATION Name: CUCO ALEXANDER Room: [address] IN [facility]#: [id number] Admission: 10/16/18 Attend Phys: Mindy Coley MD Discharge: Date of : 41 Report #: [id number] MUSCULOSKELETAL: Nontender. PSYCHIATRIC: Awake and alert. LABORATORY DATA: White cell count 47, hemoglobin 9.2 and platelets 153 and yesterday's white cell count was 61, hemoglobin was 9.7 and platelets 153. Sodium 135, potassium 4.8, chloride 104, bicarbonate 21, BUN 41, creatinine 2.5, glucose 175 and calcium 6.6. ASSESSMENT: 1. Acute kidney injury with her baseline creatinine of around 0.5-0.7 up to 2.5 on October 29. UA noted. She was receiving chemotherapy with Herceptin and Perjeta. 2. Hematuria. 3. Proteinuria. 4. Hypoalbuminemia with an albumin of 1.8. 5. Metastatic breast cancer with mastectomy, on chemotherapy, last chemo was on October [address] Alston. She has a port in place. 6. Small-bowel obstruction, status post exploratory laparotomy with lysis of adhesions and small bowel resection. 7. Status post emergent right brachial thrombectomy. 8. Chronic obstructive pulmonary disease. PLAN: 1. Vascular Surgery to assess. I discussed with Sridevi Gallo from Vascular Surgery. CTA is felt to be emergently needed. I discussed with the patient the risks of contrast nephropathy, possible need for a dialysis given that there are no alternatives and she has recurrent thrombus. It is felt this test is necessary and there is not an alternative. After discussing the risks with the patient, she would like to proceed. 2. She is on Zosyn, this was started on October 28. Suggest change to an alternate antibiotic if possible. 3. We will recheck blood cultures. 4. Continue IV fluids. Monitor urine output. Casas catheter is in place. 5. Check CK. 6. Check renal ultrasound with Doppler. 7. Echocardiogram was completed and report is pending. 8. The chemotherapy, she is on, carries a less than 1% risk of glomerulonephritis, so this seems unlikely. We will check uric acid, LDH and phosphorus. 9. Given the hypocalcemia, we will go ahead and give IV calcium and given the severe hypoalbuminemia, we will give some albumin as well and check a CK as well as the blood cultures. We will follow closely. [address] [place] [address] CONSULTATION Name: CUCO ALEXANDER Room: M.003-P ADM IN M.R.#: [id number] Admission: 10/16/18 Attend Phys: Mindy Coley MD Discharge: Date of : 41 Report #: [id number] Thank you for requesting my opinion in the care and management of this patient. <ELECTRONICALLY SIGNED> By: Ramiro Ortiz MD 10/31/18 0959 1221 0144Alambert Ortiz MD /nt
--- NOTE | 2018-10-31 15:28 | NUR ---
LEFT BASILIC VESSEL ACCESSED FOR 5 CROATIAN TRIPLE LUMEN PICC. LINE PRE-TRIMMED TO 39CM AND ADVANCED BUT RESISTANCE MET AT THE 20 CM MAILE. LINE PULLED BACK AND READVANCED WITH SEVERAL ATTEMPTS BUT UNABLE TO ADVANCE PAST 20 CM WITHOUT STAUNCH RESISTANCE. LINE REMOVED FROM MICROINTRODUCER AND RE=TRIMMED TO 10CM. LINE READVANCED TO THE ZERO MAILE AND LEFT TO DWELL A 10 CM MIDLINE. GUIDE WIRE REMOVED, LINE FLUSHED AND INSERTION SITE DRESSED. REPORT GIVEN TO ANJELICA CARTY.
--- NOTE | 2018-10-31 17:48 | NUR ---
PT CARE ASSUMED AFTER REPORT. ASSESSMENT COMPLETE. SR/ST ON MONITOR. PT ON VENTILATOR. PT IS NOT SEDATED. RESPONDS TO PAINFUL STIMULI. PRN PAIN MEDICATION GIVEN. PT TO BEGIN TPN TONIGHT. MIDLINE TRIPLE LUMEN IV ACCESS TO LUE PLACED BY INFUSION. DR YORK GAVE ORDER R/T NEED FOR FURTHER MEDICAL CARE THAT REQUIRES EXTRA ACCESS. TEMP DIALYSIS CATH PLACED TO [facility] BY DR TORO. CLEAR TO USE. DR ARREDONDO NOTIFIED OF DIALYSIS CATH PLCEMENT AND DIALYSIS NURSE TO COME TONIGHT. TURCIOS TO DD WITH 52 ML OUT. PROVENA WOUND VAC TO MIDLINE ABD INCISION. PT RESPONDS TO TOUCH/MOVEMENT OF RUE WITH FACIAL GRIMMACES. ARM HAS BECOME WARM TO THE TOUCH THROUGH OUT THE DAY. R HAND COLD TO TOUCH AND PURPLE IN COLOR. HEPARIN GTT INFUSING PER PROTOCOL. SLOW TO PROGRESS TOWARDS GOALS. FAMILY AT BEDSIDE THROUGH OUT THE DAY. .
--- NOTE | 2018-10-31 23:21 | NUR ---
PT DIALYSIS STARTED AT 2106H AND FINISHED AT 0. NO BLEEDING NOTED AND HYPOTENSION.1L REMOVED FROM PT.PORTABLE CHEST XRAY DONE FOR CONFIRMATION OF ETT PLACEMENT BECAUSE FROM RT ENDORSEMENT IT WAS 21CM UPPER LIPS AND I RECIEVED IT 19CM GUMS.
[2018-10-31 23:29] LABS: HEMATOCRIT 28.7 % (37.0-47.0); HEMOGLOBIN 9.7 gm/dL (12.0-15.0)
[2018-11-01] VITALS (22 sets, daily range): BP systolic 96–190; BP diastolic 55–82
--- NOTE | 2018-11-01 00:33 | NUR ---
ETT ADJUSTED BY RT, 22.5CM AT THE UPPER LIP.WITH EQUAL LUNG SOUND
--- NOTE | 2018-11-01 00:48 | NUR ---
RT WAS TOLD IN REPORT THE ET TUBE WAS 21 AT THE LIP BUT WHEN CHECKING THE PATIENT, THE TUBE WAS BETWEEN 19CM AND 18.5CM AT THE UPPER RIGHT LIP. WHEN ASKING THE RN WHAT THE LAST CHECK IN THE ICU HAD SHOWN, THAT REPORT WAS 19CM AT THE GUM. WE DECIDED TO CALL FOR A STAT XRAY TO CHECK PLACEMENT. RESULTS FOUND THE TUBE TO BE 5.6CM ABOVE THE MYRA. BOLUS OF VERSED WAS GIVEN FOR COMFORT PER RN AND RT MOVED THE TUBE TO 22.5CM AT TOP LIP AT 0029 FOR RESOLUTION. PT DID WELL
[2018-11-01 01:09] LABS: CALCIUM 7.3 mg/dL (8.5-10.1); CREATININE 2.6 mg/dL (0.6-1.3)
[2018-11-01 01:10] LABS: POTASSIUM 3.9 mmol/L (3.5-5.1)
--- NOTE | 2018-11-01 05:14 | NUR ---
WHEN PT TURNED TO RIGHT SIDE, NOTICED WITH DESATURATION, SUCTIONED DONE AND PUT HER BACK TO SEMI-FOLWER'S POSITION. BREATHING TRIAL DONE AT 0400H AND WELL TOLERATED FOR ONE HOUR.
[2018-11-01 05:21] LABS: BE -3.1 mmol/L (-2 to +3); PCO2 35.7 mmHg (35.0-45.0); pH 7.396 (7.340-7.450)
[2018-11-01 05:23] LABS: PO2 126.7 mmHg (75.0-100.0)
[2018-11-01 06:01] LABS: ABSOLUTE LYMPHOCYTES 0.2 thou/uL (0.8-5.3); ABSOLUTE MONOCYTES 0.6 thou/uL (0.0-1.2); ABSOLUTE NEUTROPHILS 9.1 thou/uL (1.6-8.1); BASOPHILS 0.3 %; HEMATOCRIT 23.5 % (37.0-47.0); HEMOGLOBIN 7.9 gm/dL (12.0-15.0); LYMPHOCYTES 1.6 %; MCH 27.8 pg (26.0-34.0); MCHC 33.4 g/dL (28.0-37.0); MCV 83.1 fL (80.0-100.0); MONOCYTES 6.3 %; MPV 9.2 fl. (7.2-11.1); NUCLEATED RBCS 0 /100WBC; POLYS 91.8 %; RBC 2.83 mil/uL (4.20-5.00); RDW-CV 21.1 % (10.5-14.5); WBC 9.9 thou/uL (4.0-11.0)
[2018-11-01 06:05] LABS: ALBUMIN 1.9 g/dL (3.4-5.0); CALCIUM 7.3 mg/dL (8.5-10.1); CREATININE 2.8 mg/dL (0.6-1.3); MAGNESIUM 1.9 mg/dL (1.8-2.4); POTASSIUM 3.9 mmol/L (3.5-5.1); TOTAL BILIRUBIN 0.5 mg/dL (<0.1-1.0); TOTAL PROTEIN 4.8 g/dL (6.4-8.2)
[2018-11-01 06:35] LABS: PLATELET COUNT* 40 thou/uL (150-400)
--- NOTE | 2018-11-01 06:55 | NUR ---
PT PLT. 40, PHYSICIAL INFORMED.
--- NOTE | 2018-11-01 08:44 | CON ---
[address] [address] CONSULTATION Name: CUCO JENNINGS Room: [address] IN M.R.#: [id number] Admission: 10/16/18 Attend Phys: Mindy Coley MD Discharge: Date of : 41 Report #: [id number] THIS REPORT FOR: //name// CC: Sadaf Jennings DATE OF SERVICE: 10/30/2018 ATTENDING PHYSICIAN: Dr. Leonidas Chong. PATIENT LOCATION: ICU Bed 3. Thank you for the consultation on the patient in bed 3. HISTORY OF PRESENT ILLNESS: The patient is an unfortunate 78-year-old female with multiple medical problems. She has had previous abdominal adhesions with small-bowel obstruction and had lysis of adhesions on 10/27/2018. She had a previous small-bowel obstruction noted. She has breast cancer, metastatic, on chemotherapy. She then had some right brachial arterial thrombosis and an emergent right thrombectomy yesterday afternoon. It appeared she was doing poorly after extubation in the recovery room. She was then reintubated in the ICU. Even after intubation in the ICU, she then became pulseless, had PEA and then received CPR and with bagging appeared to come out of her PEA into a sinus tachycardia with low blood pressure. She was on pressors then. She has acute metabolic acidosis and lactic acidosis. Her urine output was poor, creatinine was increased and they put her on IV heparin. There was no consideration to take her back to Surgery since she has done poorly the 2 previous times. She is lightly sedated on the ventilator at this time. She will respond and look around, occasionally open eyes. Again, urine output is only fair. PAST MEDICAL HISTORY: As above. Again, it includes history of COPD, history of volume depletion, peripheral vascular disease, acute tubular necrosis and metabolic and lactic acidosis. Also has breast cancer, metastatic, on current chemotherapy. PREVIOUS SURGICAL HISTORY: Noted with small bowel resection and lysis of adhesions on 10/27/2018 and previous small bowel obstructions. She also has protein-calorie malnutrition and anemia. ALLERGIES: SHE HAS MULTIPLE ALLERGIES INCLUDING MORPHINE, HYDROCODONE, HYDROCHLOROTHIAZIDE, TRIAMTERENE. The patient also is "allergic to ZOSYN and [place] [address] CONSULTATION Name: CUCO JENNINGS Room: [address] IN [facility]#: [id number] Admission: 10/16/18 Attend Phys: Mindy Coley MD Discharge: Date of : 42 Report #: [id number] CURRENT MEDICATIONS: Include Flagyl and Cipro. Also is on DuoNeb nebulizers, Protonix 40 mg daily. She is on IV heparin drip per protocol and Precedex for sedation. She has received some sodium bicarbonate also as well as midazolam for sedation. She did have one or two fluid boluses noted. I do not see pressors currently at this time. FAMILY HISTORY: Negative for premature cardiopulmonary disease. Some history of vascular disease in the family. SOCIAL HISTORY: Prior smoker. Alcohol use is not noted. REVIEW OF SYSTEMS: Fourteen review of systems was attempted, the patient was unresponsive on the ventilator per prior notes. The pertinent positives were noted in HPI. PHYSICAL EXAMINATION: GENERAL: Ill-appearing 78-year-old female, lightly sedated on the ventilator. She is not very responsive at this time. VITAL SIGNS: Blood pressure is between 104/56 on no pressors, heart rate 110s to 120s, respirations are 18 over backup rate of 18, and temperature is 36 degrees. She is 5 feet 2 inches tall, weight is 58 kilograms or 126 pounds, BMI is 23. HEENT: Pupils are midpoint, sluggishly reactive. Orally intubated. BREASTS: Surgical ____ on her breasts were noted. CHEST: Shows a few rhonchi without wheeze. CARDIOVASCULAR: Sinus tachycardia with heart rate of 128. ABDOMEN: Soft and bowel sounds are hypoactive. Recent incision is noted. No rebound tenderness. EXTREMITIES: Right hand is cool to touch and discolored and blue. Poor peripheral pulses are noted. Left arm has 1+ peripheral pulse. Femoral pulses are 1+ also. NEUROLOGIC: Some withdrawal to stimuli. No cyanosis, clubbing or edema. LABORATORY DATA: This morning hemoglobin was 8.4, white count 16,800, platelet count was low at 68,000. Fibrinogen workup and FDP split products are pending. Sodium was 139, potassium was 5.9, repeat is pending. Carbon dioxide is 20, BUN 48, creatinine is 2.9, GFR 16, glucose is 110, calcium is 6.3, creatine kinase is 902 and albumin is 2.4. Chest x-ray shows mild COPD, hyperinflation, ET tube in good position, patchy lower lobe infiltrates, no definite CHF. ABGs which were obtained this morning appeared to be a left brachial arterial sample this morning at 450 on 100% ____ 18 and PEEP of 5; shows a pO2 of 177, pH of 7.27, pCO2 of 38, bicarbonate 17, sats 97%, base excess negative 8. IMPRESSION: 1. Status post cardiac arrest, probably from hyper[place] [address] CONSULTATION Name: CUCO JENNINGS Room: [address] IN [facility]#: [id number] Admission: 10/16/18 Attend Phys: Mindy Coley MD Discharge: Date of : 41 Report #: [id number] and respiratory acidosis, better with intubation. 2. Status post thrombectomy and severe peripheral vascular disease, right arm thrombectomy and pulseless right arm and hand noted. 3. Previous small-bowel obstruction. 4. Breast cancer with metastatic disease. 5. Possible chronic obstructive pulmonary disease. PLAN: We will add a few doses of stress steroids to see if that helps out with her blood pressure. Continue on with IV heparin. She is on penicillin and Cipro at this time, which should cover for any aspiration or any respiratory problems. I will keep him on the ventilator, keep her on nebulizer treatments to see if she wakes up in a day or two and then work on trying to wean the patient. May need to discuss with family how aggressive they want us to be with progressive breast cancer, which may be refractory to chemotherapy. Prognosis is somewhat guarded at this time with multiple other medical problems. She is not a candidate to go back to the Operating Room at this time. Vascular Surgery is following along. This has been a 36-minute critical care consult. <ELECTRONICALLY SIGNED> By: Cheyenne Medley MD 11/01/18 0844 1121 [id number] joan Childress
[2018-11-01 13:07] LABS: HEPATITIS B SURFACE AG Negative (Negative)
--- NOTE | 2018-11-01 15:01 | EKG ---
[place] [address] ELECTROCARDIOGRAM REPORT Name: CUCO ALEXANDER Room: [address] ADM IN M.R.#: [id number] Admission: 10/16/18 Attend Phys: Mindy Coley MD Discharge: Date of : 42 Report #: [id number] THIS REPORT FOR: //name// [facility] Test Date: 2018-11-01 Test Time: 11:44:42 Pat Name: CUCO ALEXANDER Department: Room: [address] Gender: F Grated Cheese Maker: : 1940 Requested By: Leonidas Chong Order Number: [id number] Reading MD: Vick Raygoza Measurements Intervals [place] Rate: 119 P: 50 OK: 147 QRS: -14 QRSD: 106 T: 91 QT: 322 QTc: 454 Interpretive Statements Sinus tachycardia Low voltage, precordial leads Borderline T wave abnormalities artifact noted Compared to ECG 09/20/2018 15:36:25 Low QRS voltage now present T-wave abnormality still present Myocardial infarct finding still present Electronically Signed On 11-01-2018 15:01:13 CDT by Vick Raygoza [email or web address] <ELECTRONICALLY SIGNED> By: Vick Raygoza MD, [facility] 11/01/18 1501 1144 1144 Vick Raygoza MD, [facility] /EPI
[2018-11-01 15:38] LABS: PROTIME 81.9 Seconds (9.20-11.50)
[2018-11-01 15:43] LABS: INR 8.1
--- NOTE | 2018-11-01 18:16 | NUR ---
PT CARE ASSUMED AFTER REPORT. ASSESSMENTS COMPLETE. SR/ST ON MONITOR. PT EXTUBATED THIS AM. O2 5L NC. PT TOLERATING WELL. ANTICOAGULANT CHANGED PER DR TODAY. TPN INFUSING. TURCIOS TO DD. 50 ML OUTPUT. PT RECEIVED DIALYSIS THIS AM. 2L REMOVED. PT A/O X4. PRN PAIN MEDICATION GIVEN. PROGRESSING TOWARDS GOALS.
--- NOTE | 2018-11-01 23:58 | NUR ---
PT APTT AT 2100H >198.4 AND INFORMED THE DOCTOR AND WANTED A RPT APTT DRAW AT LOWER EXTRIMITY AND AGREED TO TO STOP THE AGRASTAT FOR THE MEANTIME. RPT APPT RESUTLT CAME AND STILL THE SAME, INFORM ED DOCTOR VIA YOUCALL.
[2018-11-02] VITALS (56 sets, daily range): BP systolic 60–193; BP diastolic 40–116
--- NOTE | 2018-11-02 06:07 | NUR ---
AGRASTAT MAINTAIN AT 0.1. BP INCRESED WHEN IN PAIN AND TURNING POSITION. NO BLEEDING NOTED.
[2018-11-02 10:04] LABS: HEMATOCRIT 25.5 % (37.0-47.0); HEMOGLOBIN 8.4 gm/dL (12.0-15.0); MCH 28.2 pg (26.0-34.0); MCHC 32.9 g/dL (28.0-37.0); MCV 85.5 fL (80.0-100.0); MPV 8.9 fl. (7.2-11.1); NUCLEATED RBCS 0 /100WBC; PLATELET COUNT* 60 thou/uL (150-400); RBC 2.98 mil/uL (4.20-5.00); RDW-CV 21.5 % (10.5-14.5)
[2018-11-02 10:15] LABS: ALBUMIN 2.1 g/dL (3.4-5.0); CALCIUM 8.5 mg/dL (8.5-10.1); CREATININE 2.6 mg/dL (0.6-1.3); MAGNESIUM 1.8 mg/dL (1.8-2.4); PHOSPHORUS* 4.9 mg/dL (2.5-4.9); POTASSIUM 3.8 mmol/L (3.5-5.1)
[2018-11-02 10:40] LABS: ABSOLUTE LYMPHOCYTES 0.4 thou/uL (0.8-5.3); ABSOLUTE MONOCYTES 1.3 thou/uL (0.0-1.2); ABSOLUTE NEUTROPHILS 16.4 thou/uL (1.6-8.1); PLATELET ESTIMATE DECREASED
[2018-11-02 10:41] LABS: ANISOCYTOSIS 2+; OVALOCYTES Occasional
--- NOTE | 2018-11-02 15:30 | NUR ---
SUZI STODDARD NOTIFIED REGARDING RESPIRATORY DISTRESS. PT CURRENTLY BREATHING 35-40 ON 3L NC. PT APPEARS TO BE SOB WITHOUT ACTIVITY AND CONTINUES TO BECOME MORE LETHARGIC. ABG ORDERED FOR LUE. BIPAP TO BE INITIATED. SUZI STODDARD ORDERED FOR NG TO BE REMOVED. PULMONARY ORDER FOR 1 HOUR ON BIPAP AND IF PATIENT DOES NOT IMPROVE IN RESPIRATORY STATUS-INTUBATE. PT'S SON HAS BEEN UPDATED REGARDING THIS PLAN AND HE AGREES TO THE PLAN OF CARE.
[2018-11-02 15:47] LABS: BE -5.9 mmol/L (-2 to +3); PO2 93.6 mmHg (75.0-100.0)
[2018-11-02 15:51] LABS: PCO2 69.1 mmHg (35.0-45.0); pH 7.153 (7.340-7.450)
--- NOTE | 2018-11-02 16:30 | NUR ---
ORDER RECEIVED FROM SURGERY TO PULL NG TUBE TO ATTEMPT BIPAP FOR RESPIRATORY DISTRESS.
--- NOTE | 2018-11-02 18:30 | NUR ---
PT INTUBATED AT 1730 DUE TO RESPIRATORY DECLINE. PT ATTEMPTED AT BIPAP PRIOR TO INTUBATION BUT WAS STILL BREATHING 35-40 BREATHS PER MINUTE. ER MD INTUBATED WITH ASSISTANCE OF NURSING STAFF. OG PLACED WRITTER WAS UNSUCCESSFUL REPLACING NG TUBE IN EITHER NARE. PT IN RESTRAINTS AND ORDERS RECEIVED FOR SEDATION. PT APPEARS COMFORTABLE AT THIS TIME. INSTALLMENT LOAN COLLECTOR HIMS MD NOTIFIED REGARDING PT'S DROP IN BLOOD PRESSURE AND LABS/LEVOPHED WERE ORDERED. PULMONARY DOCTOR NOTIFIED REGARDING RIGHT UPPER LOBE COLLAPSE. ORDERS RECEIVED FOR ACETYLCYSTEINE PER NEB Q4H. CALL PLACED TO RADIOLOGIST THAT READ TUBE PLACEMENT TO CHECK IF PATIENT NEEDED ET TUBE PULLED BACK. RADIOLOGIST NOTED THAT ET TUBE IS IN THE CORRECT POSITION AND THAT IT APPEARS THE COLLAPSE IS DUE TO MUCUS. PULMONARY DOCTOR IS ALREADY AWARE AND NOTED ABOVE ORDERS. WILL CONTINUE TO MONITOR OXYGENATION.
[2018-11-02 18:43] LABS: BE -3.9 mmol/L (-2 to +3); PO2 68.4 mmHg (75.0-100.0)
[2018-11-02 18:45] LABS: PCO2 50.2 mmHg (35.0-45.0)
[2018-11-02 20:28] LABS: ABSOLUTE LYMPHOCYTES 0.4 thou/uL (0.8-5.3); ABSOLUTE MONOCYTES 1.3 thou/uL (0.0-1.2); ABSOLUTE NEUTROPHILS 18.9 thou/uL (1.6-8.1); BASOPHILS 0.1 %; EOSINOPHILS 0.1 %; HEMATOCRIT 25.1 % (37.0-47.0); HEMOGLOBIN 8.2 gm/dL (12.0-15.0); MCH 27.9 pg (26.0-34.0); MCHC 32.8 g/dL (28.0-37.0); MCV 85.1 fL (80.0-100.0); MONOCYTES 6.4 %; MPV 8.6 fl. (7.2-11.1); NUCLEATED RBCS 0 /100WBC; PLATELET COUNT* 82 thou/uL (150-400); POLYS 91.4 %; RBC 2.95 mil/uL (4.20-5.00); RDW-CV 21.1 % (10.5-14.5); WBC 20.7 thou/uL (4.0-11.0)
[2018-11-02 20:40] LABS: ALBUMIN 1.9 g/dL (3.4-5.0); CALCIUM 8.2 mg/dL (8.5-10.1); CREATININE 2.9 mg/dL (0.6-1.3); POTASSIUM 3.7 mmol/L (3.5-5.1); TOTAL BILIRUBIN 0.5 mg/dL (<0.1-1.0); TOTAL PROTEIN 4.7 g/dL (6.4-8.2)
[2018-11-03] VITALS (67 sets, daily range): BP systolic 66–218; BP diastolic 15–92
[2018-11-03 04:16] LABS: ABSOLUTE LYMPHOCYTES 0.4 thou/uL (0.8-5.3); ABSOLUTE MONOCYTES 0.7 thou/uL (0.0-1.2); ABSOLUTE NEUTROPHILS 8.2 thou/uL (1.6-8.1); BASOPHILS 0.1 %; HEMATOCRIT 24.9 % (37.0-47.0); HEMOGLOBIN 8.4 gm/dL (12.0-15.0); LYMPHOCYTES 3.9 %; MCH 28.4 pg (26.0-34.0); MCHC 33.6 g/dL (28.0-37.0); MCV 84.7 fL (80.0-100.0); MONOCYTES 7.6 %; MPV 9.5 fl. (7.2-11.1); NUCLEATED RBCS 0 /100WBC; PLATELET COUNT* 59 thou/uL (150-400); POLYS 88.4 %; RBC 2.94 mil/uL (4.20-5.00); RDW-CV 21.2 % (10.5-14.5); WBC 9.3 thou/uL (4.0-11.0)
[2018-11-03 04:45] LABS: ALBUMIN 1.5 g/dL (3.4-5.0); CREATININE 2.9 mg/dL (0.6-1.3); MAGNESIUM 1.6 mg/dL (1.8-2.4); POTASSIUM 3.6 mmol/L (3.5-5.1); TOTAL BILIRUBIN 0.4 mg/dL (<0.1-1.0)
--- NOTE | 2018-11-03 06:14 | NUR ---
PT STILL ON LEVOPHEP AT 3MCG/MIN, MAP MAINTAIN >60. STILL ON SEDATION OF PRECEDEX AND FENTANYL, NO EYE OPENING BUT LOCALIZE TO PAIN. PT STABLE THE WHOLE NIGHT AND NO BLEEDING NOTED.
--- NOTE | 2018-11-03 07:55 | NUR ---
PT'S APTT 48.7. PER PROTOCOL NO CHANGE IS NEEDED. WILL PLACE ORDER FOR APTT TO BE DRAWN AM 11/04/2018 PER PROTOCOL.
--- NOTE | 2018-11-03 10:00 | NUR ---
NEW ORDER RECEIVED TO KEEP APTT BETWEEN 60-90. ARGATROBAN DRIP INCREASED BY 0.1 MCG/KG/MIN. IT IS NOW RUNNING AT 0.2 MCG/KG/MIN. NEXT APTT AT 1200.
[2018-11-03 13:09] LABS: BE -8.5 mmol/L (-2 to +3); PCO2 VENOUS 56.5 mmHg (41.0-51.0); PO2 VENOUS 77.6 mmHg (35.0-45.0)
--- NOTE | 2018-11-03 13:30 | NUR ---
APTT 52.8, ARGATROBAN DRIP INCREASED BY 0.1 MCG/KG/MIN AND IS NOW RUNNING AT 0.3 MCG/KG/MIN. NEXT APTT TO BE DRAWN AT 1530
--- NOTE | 2018-11-03 16:44 | NUR ---
APTT 43.6, INCREASING ARGATROBAN DRIP BY 0.2 MCG/KG/MINUTE. NEXT APTT AT 1845
--- NOTE | 2018-11-03 18:25 | NUR ---
PT ASSESSMENT CHARTED. VSS ON LEVEOPHED CURRENTLY AT 6 MCG/MIN. PT HAD DROP IN BLOOD PRESSURE THIS AFTERNOON REQUIRING TO BE TITRATED UP. PRECEDEX TITRATED DOWN. WEANING TRIAL SCHEDULED FOR IN THE MORNING. DIALYSIS TOMORROW. APTT TO BE DRAWN AT 1845 TO CONTINUE TO TRY AND BRING APTT BETWEEN 60-90. WOUND VAC HOOKED UP TO CONTINUOUS WALL SUCTION AT 120 MMHG PER SURGERY. NO FEVERS. PATIENT IS RESPONSIVE TO PAIN AND STIMULI. WILL CONTINUE TO TITRATE SEDATION DOWN.
[2018-11-04] VITALS (128 sets, daily range): BP systolic 51–211; BP diastolic 23–119
[2018-11-04 03:33] LABS: BASOPHILS 0.1 %; HEMATOCRIT 29.5 % (37.0-47.0); HEMOGLOBIN 9.7 gm/dL (12.0-15.0); LYMPHOCYTES 3.4 %; MCH 27.8 pg (26.0-34.0); MCHC 32.9 g/dL (28.0-37.0); MCV 84.4 fL (80.0-100.0); MONOCYTES 4.4 %; NUCLEATED RBCS 1 /100WBC; POLYS 92.1 %; RDW-CV 21.1 % (10.5-14.5)
[2018-11-04 03:54] LABS: ALBUMIN 1.4 g/dL (3.4-5.0); CALCIUM 8.1 mg/dL (8.5-10.1); CREATININE 3.5 mg/dL (0.6-1.3); MAGNESIUM 2.2 mg/dL (1.8-2.4); POTASSIUM 4.2 mmol/L (3.5-5.1); TOTAL BILIRUBIN 0.6 mg/dL (<0.1-1.0); TOTAL PROTEIN 4.3 g/dL (6.4-8.2)
[2018-11-04 04:14] LABS: ABSOLUTE LYMPHOCYTES 0.9 thou/uL (0.8-5.3); ABSOLUTE MONOCYTES 1.2 thou/uL (0.0-1.2); ABSOLUTE NEUTROPHILS 25.2 thou/uL (1.6-8.1); PLATELET COUNT* 147 thou/uL (150-400); WBC 27.4 thou/uL (4.0-11.0)
--- NOTE | 2018-11-04 05:15 | NUR ---
VSS. LEVOPHED GTT TITRATED FOR MAP >65. ARGATROBAN GTT TITRATED PER PROTOCOL. SEDATION TITRATED FOR COMFORT AND VENT EFFICACY. FENTANYL OFF AT THIS TIME FOR POSSIBLE TTT THIS AM, PT APPEARS COMFORTABLE ON PRECEDEX GTT. COMPLETE BED BATH GIVEN, HAIR SHAMPOOED AND COMBED. PT HAS BEEN TURNED Q2HR THROUGHOUT THE SHIFT.
[2018-11-04 07:12] LABS: BE -8.1 mmol/L (-2 to +3); PCO2 VENOUS 48.3 mmHg (41.0-51.0); PO2 VENOUS 48.5 mmHg (35.0-45.0)
--- NOTE | 2018-11-04 07:59 | NUR ---
APTT 93. ARGATROBAN DRIP DECREASED BY 0.1 MCG/KG/MIN. IT IS CURRENTLY RUNNING AT 0.2 MCG/KG/MIN. APTT TO BE REDRAWN AT 1000.
--- NOTE | 2018-11-04 10:57 | NUR ---
PT.REMAINS ON VENT. NO FAMILY HERE AT THIS TIME. PER MACHELLE DAY, PT.WILL START CRRT TODAY.
--- NOTE | 2018-11-04 11:32 | NUR ---
aptt 69.3. No change necessary per Argatroban protocol order.
--- NOTE | 2018-11-04 13:30 | NUR ---
pt's aptt 104.6, decreasing Argatroban drip by 0.1 mcg/kg/minute and is currently running at 0.1 mcg/kg/min. will redraw aptt at 1530
[2018-11-04 15:25] LABS: HEMATOCRIT 28.7 % (37.0-47.0); HEMOGLOBIN 9.4 gm/dL (12.0-15.0); MCH 27.7 pg (26.0-34.0); MCHC 32.6 g/dL (28.0-37.0); MCV 84.9 fL (80.0-100.0); MPV 10.3 fl. (7.2-11.1); RBC 3.38 mil/uL (4.20-5.00); RDW-CV 21.7 % (10.5-14.5); WBC 37.3 thou/uL (4.0-11.0)
[2018-11-04 15:37] LABS: MAGNESIUM 1.1 mg/dL (1.8-2.4); PHOSPHORUS* 2.2 mg/dL (2.5-4.9)
[2018-11-04 15:43] LABS: CREATININE 1.6 mg/dL (0.6-1.3)
[2018-11-04 15:45] LABS: POTASSIUM 2.6 mmol/L (3.5-5.1)
[2018-11-04 15:46] LABS: CALCIUM 5.5 mg/dL (8.5-10.1)
--- NOTE | 2018-11-04 17:27 | NUR ---
WRITTER BELIEVES LAST LAB DRAW WAS INCORRECT. WILL GET NEW LABS FROM DIFFERENT SITE.
--- NOTE | 2018-11-04 19:59 | NUR ---
PT ASSESSMENT CHARTED. PATIENT UNABLE TO TOLERATE HEMODIALYSIS. LEVOPHED NEEDED TO BE MAXED AND EPINEPHERINE NEARLY MAXED. PT TOLERATING CRRT. IT WAS INITIATED AT 1130 AND IS STILL CURRENTLY RUNNING WITHOUT ANY ORDERED REMOVAL. QUESTIONABLE LABS DRAWN FROM [facility]. LAB UNABLE TO DRAW FROM FEET THEY WERE PULLING SERUM. PT CONTINUES TO HAVE INCREASING EDEMA IN LOWER EXTREMETIES. CENTRAL LINE PLACED BY SURGERY. CRITICAL LABS CALLED TO NEPHROLOGY WITH ORDERS ON STAND BY ONCE LABS CAN BE SENT DOWN FROM CENTRAL LINE. UNABLE TO DO A WEANING TRIAL DUE TO HEMODYNAMIC INSTABILITY BUT PATIENT WAS LESS SEDATED THIS AM AND FOLLOWING COMMANDS. FAMILY HAS BEEN UPDATED.
--- NOTE | 2018-11-04 20:00 | NUR ---
TRIPLE LUMEN CENTRAL LINE PLACED TO LEFT GROIN BY DR PANIAGUA AT THIS TIME.
[2018-11-04 21:02] LABS: HEMATOCRIT 30.5 % (37.0-47.0); MCH 27.8 pg (26.0-34.0); MCHC 32.6 g/dL (28.0-37.0); MPV 9.7 fl. (7.2-11.1); RBC 3.59 mil/uL (4.20-5.00); RDW-CV 21.8 % (10.5-14.5); WBC 34.4 thou/uL (4.0-11.0)
[2018-11-04 21:07] LABS: CREATININE 1.9 mg/dL (0.6-1.3); MAGNESIUM 1.8 mg/dL (1.8-2.4)
[2018-11-04 21:08] LABS: CALCIUM 8.1 mg/dL (8.5-10.1); POTASSIUM 3.8 mmol/L (3.5-5.1)
--- NOTE | 2018-11-04 23:45 | NUR ---
TEMP 90.5 AXILLARY, BEAR HUGGER PLACED.
[2018-11-05] VITALS (158 sets, daily range): BP systolic 56–171; BP diastolic 15–99
[2018-11-05 00:50] LABS: HEMATOCRIT 27.8 % (37.0-47.0); HEMOGLOBIN 9.2 gm/dL (12.0-15.0); MCV 84.9 fL (80.0-100.0); MPV 9.5 fl. (7.2-11.1); RBC 3.27 mil/uL (4.20-5.00); WBC 26.6 thou/uL (4.0-11.0)
[2018-11-05 00:54] LABS: CALCIUM 7.9 mg/dL (8.5-10.1); CREATININE 1.9 mg/dL (0.6-1.3); MAGNESIUM 2.4 mg/dL (1.8-2.4); PHOSPHORUS* 2.8 mg/dL (2.5-4.9); POTASSIUM 3.6 mmol/L (3.5-5.1)
[2018-11-05 04:48] LABS: HEMATOCRIT 25.4 % (37.0-47.0); HEMOGLOBIN 8.5 gm/dL (12.0-15.0); MCH 28.1 pg (26.0-34.0); MCHC 33.3 g/dL (28.0-37.0); MCV 84.5 fL (80.0-100.0); MPV 9.6 fl. (7.2-11.1); RBC 3.01 mil/uL (4.20-5.00); RDW-CV 21.4 % (10.5-14.5)
[2018-11-05 05:09] LABS: CALCIUM 8.2 mg/dL (8.5-10.1); CREATININE 1.8 mg/dL (0.6-1.3); MAGNESIUM 1.9 mg/dL (1.8-2.4); PHOSPHORUS* 3.1 mg/dL (2.5-4.9); POTASSIUM 3.9 mmol/L (3.5-5.1)
--- NOTE | 2018-11-05 07:35 | NUR ---
CRRT LINE VERY POSITIONAL THROUGH THE NIGHT. LEVOPHED REQUIRED FREQUENT AND INCREMENTALLY SMALL TITRATIONS DUE TO LABILE BP RESPONSE, TITRATED BY 0.25-0.50 MCG/KG/MIN TO MAINTAIN MAP >65. SEDATION TITRATED FOR COMFORT AND TO MAINTAIN DIALYSIS CATH POSITIONING. LABS Q4HR PER CRRT PROTOCOL, ELECTROLYTES REPLACED PER DR HERNÁNDEZ'S SPECIFICATIONS. COPIOUS WEEPING FROM L GROIN CENTRAL LINE SITE. UNABLE TO PROVIDE BATHING DUE TO CRITICAL ALARMING OF CRRT WITH MINIMAL MOVEMENTS. PT WAS REPOSITIONED Q1-2HR USING MICROTURN METHOD TO ADJUST HIPS AND PROVIDE PRESSURE RELIEF.
[2018-11-05 08:01] LABS: BE -1.5 mmol/L (-2 to +3); PCO2 VENOUS 50.6 mmHg (41.0-51.0)
[2018-11-05 08:05] LABS: HEMATOCRIT 27.6 % (37.0-47.0); MCH 27.9 pg (26.0-34.0); MCHC 32.8 g/dL (28.0-37.0); MCV 85.1 fL (80.0-100.0); MPV 9.7 fl. (7.2-11.1); RBC 3.24 mil/uL (4.20-5.00); RDW-CV 21.5 % (10.5-14.5)
[2018-11-05 08:10] LABS: WBC 37.1 thou/uL (4.0-11.0)
[2018-11-05 08:41] LABS: CALCIUM 8.2 mg/dL (8.5-10.1); CREATININE 1.8 mg/dL (0.6-1.3); MAGNESIUM 3.2 mg/dL (1.8-2.4); PHOSPHORUS* 3.1 mg/dL (2.5-4.9); POTASSIUM 3.9 mmol/L (3.5-5.1)
[2018-11-05 12:02] LABS: HEMATOCRIT 27.2 % (37.0-47.0); MCH 28.3 pg (26.0-34.0); MCHC 33.2 g/dL (28.0-37.0); MCV 85.3 fL (80.0-100.0); MPV 9.6 fl. (7.2-11.1); RBC 3.19 mil/uL (4.20-5.00); RDW-CV 21.5 % (10.5-14.5); WBC 38.3 thou/uL (4.0-11.0)
[2018-11-05 12:12] LABS: CALCIUM 7.8 mg/dL (8.5-10.1); CREATININE 1.5 mg/dL (0.6-1.3); MAGNESIUM 2.4 mg/dL (1.8-2.4); PHOSPHORUS* 2.8 mg/dL (2.5-4.9); POTASSIUM 3.6 mmol/L (3.5-5.1)
[2018-11-05 15:58] LABS: HEMATOCRIT 27.9 % (37.0-47.0); HEMOGLOBIN 9.3 gm/dL (12.0-15.0); MCH 28.2 pg (26.0-34.0); MCHC 33.2 g/dL (28.0-37.0); MCV 85.1 fL (80.0-100.0); MPV 10.9 fl. (7.2-11.1); RBC 3.28 mil/uL (4.20-5.00); RDW-CV 21.5 % (10.5-14.5)
[2018-11-05 16:00] LABS: WBC 43.9 thou/uL (4.0-11.0)
[2018-11-05 16:09] LABS: CALCIUM 7.6 mg/dL (8.5-10.1); CREATININE 1.3 mg/dL (0.6-1.3); MAGNESIUM 2.1 mg/dL (1.8-2.4); PHOSPHORUS* 2.1 mg/dL (2.5-4.9); POTASSIUM 3.7 mmol/L (3.5-5.1)
--- NOTE | 2018-11-05 17:11 | NUR ---
PATIENT NOT PROGRESSING WELL TOWARDS GOALS. PRESSOR SUPPORT HAS REMAINED THE SAME AND PULLING SOME FLUID OFF WITH DIALYSIS BUT DOES DROP PRESSURES AT TIMES RANDOMLY. REMAINS SINUS RHYTHM. SEDATION INCREASED DUE TO PATIENT TRYING TO TALK AND PEAK PRESSURES HIGH ON VENTILATOR. SON VISITED TODAY, DR NOBLE UPDATED HIM OVER THE PHONE THIS AFTERNOON ON PATIENT STATUS. TEMP REMAINS 94.2 WITH RENETTA STRONG AT MAX TEMP. PREVENA NOW OOZZING FECAL MATTER FROM SITE, PAGING SURGERY AT THIS TIME.
[2018-11-05 20:49] LABS: HEMATOCRIT 29.8 % (37.0-47.0); HEMOGLOBIN 9.9 gm/dL (12.0-15.0); MCH 28.4 pg (26.0-34.0); MCHC 33.2 g/dL (28.0-37.0); MCV 85.5 fL (80.0-100.0); MPV 9.5 fl. (7.2-11.1); RBC 3.49 mil/uL (4.20-5.00); RDW-CV 21.4 % (10.5-14.5)
[2018-11-05 20:56] LABS: WBC 50.1 thou/uL (4.0-11.0)
[2018-11-05 20:57] LABS: CALCIUM 8.4 mg/dL (8.5-10.1); CREATININE 1.4 mg/dL (0.6-1.3); MAGNESIUM 2.5 mg/dL (1.8-2.4); PHOSPHORUS* 2.4 mg/dL (2.5-4.9); POTASSIUM 4.5 mmol/L (3.5-5.1)
[2018-11-06] VITALS (55 sets, daily range): BP systolic 90–165; BP diastolic 27–63
[2018-11-06 04:16] LABS: HEMATOCRIT 26.4 % (37.0-47.0); HEMOGLOBIN 8.7 gm/dL (12.0-15.0); MCH 28.2 pg (26.0-34.0); MCV 85.4 fL (80.0-100.0); MPV 11.4 fl. (7.2-11.1); RBC 3.09 mil/uL (4.20-5.00); RDW-CV 21.8 % (10.5-14.5)
--- NOTE | 2018-11-06 06:04 | NUR ---
CRRT CLOTTED OFF AT 2315, TO BE RESTARTED THIS AM PER DR FARRIS. APTT THIS AM WITHIN THERAPEUTIC RANGE, ARGATROBAN GTT MAINTAINED AT CURRENT RATE AND REDRAW ORDERED FOR TOMORROW. COPIOUS WEEPING CONTINUES FROM L GROIN CENTRAL LINE SITE. LEVOPHED TITRATED FOR MAP >65, REQUIRING INCREMENTALLY SMALL ADJUSTMENTS DUE TO LABILE BP RESPONSE. PT HAS BEEN TURNED Q2HR THROUGH THE NIGHT.
[2018-11-06 08:13] LABS: BE -3.8 mmol/L (-2 to +3); PCO2 VENOUS 42.6 mmHg (41.0-51.0); PO2 VENOUS 80.9 mmHg (35.0-45.0)
[2018-11-06 08:52] LABS: CALCIUM 8.2 mg/dL (8.5-10.1); CREATININE 1.7 mg/dL (0.6-1.3); POTASSIUM 4.5 mmol/L (3.5-5.1)
[2018-11-06 14:07] LABS: HEMATOCRIT 25.4 % (37.0-47.0); HEMOGLOBIN 8.5 gm/dL (12.0-15.0); MCH 28.8 pg (26.0-34.0); MCHC 33.4 g/dL (28.0-37.0); MCV 86.4 fL (80.0-100.0); MPV 10.4 fl. (7.2-11.1); RBC 2.94 mil/uL (4.20-5.00); RDW-CV 21.7 % (10.5-14.5)
[2018-11-06 14:08] LABS: WBC 42.1 thou/uL (4.0-11.0)
[2018-11-06 14:29] LABS: CALCIUM 7.9 mg/dL (8.5-10.1); CREATININE 1.5 mg/dL (0.6-1.3); MAGNESIUM 2.1 mg/dL (1.8-2.4); PHOSPHORUS* 2.2 mg/dL (2.5-4.9); POTASSIUM 4.6 mmol/L (3.5-5.1)
[2018-11-06 18:30] LABS: HEMOGLOBIN 8.9 gm/dL (12.0-15.0); RDW-CV 22.4 % (10.5-14.5)
[2018-11-06 18:33] LABS: HEMATOCRIT 26.5 % (37.0-47.0); MCH 29.1 pg (26.0-34.0); MCHC 33.5 g/dL (28.0-37.0); MCV 86.7 fL (80.0-100.0); MPV 11.2 fl. (7.2-11.1); RBC 3.06 mil/uL (4.20-5.00)
[2018-11-06 18:35] LABS: WBC 42.8 thou/uL (4.0-11.0)
[2018-11-06 18:42] LABS: CALCIUM 8.1 mg/dL (8.5-10.1); CREATININE 1.4 mg/dL (0.6-1.3); MAGNESIUM 1.8 mg/dL (1.8-2.4); PHOSPHORUS* 2.4 mg/dL (2.5-4.9); POTASSIUM 4.7 mmol/L (3.5-5.1)
[2018-11-06 22:25] LABS: HEMATOCRIT 26.2 % (37.0-47.0); HEMOGLOBIN 8.7 gm/dL (12.0-15.0); MCH 29.1 pg (26.0-34.0); MCHC 33.4 g/dL (28.0-37.0); MCV 87.1 fL (80.0-100.0); RBC 3.01 mil/uL (4.20-5.00); RDW-CV 22.8 % (10.5-14.5)
[2018-11-06 22:34] LABS: CREATININE 1.3 mg/dL (0.6-1.3); MAGNESIUM 2.1 mg/dL (1.8-2.4); PHOSPHORUS* 2.1 mg/dL (2.5-4.9); POTASSIUM 4.4 mmol/L (3.5-5.1)
[2018-11-07] VITALS (30 sets, daily range): BP systolic 70–151; BP diastolic 19–68
[2018-11-07 02:41] LABS: HEMATOCRIT 26.6 % (37.0-47.0); HEMOGLOBIN 8.8 gm/dL (12.0-15.0); MCH 28.8 pg (26.0-34.0); RBC 3.04 mil/uL (4.20-5.00)
[2018-11-07 02:43] LABS: MCV 87.4 fL (80.0-100.0); NUCLEATED RBCS 3 /100WBC; PLATELET COUNT* 88 thou/uL (150-400); RDW-CV 22.4 % (10.5-14.5)
[2018-11-07 02:48] LABS: WBC 43.2 thou/uL (4.0-11.0)
[2018-11-07 02:52] LABS: ALBUMIN 1.4 g/dL (3.4-5.0); CALCIUM 7.9 mg/dL (8.5-10.1); CREATININE 1.3 mg/dL (0.6-1.3); POTASSIUM 4.6 mmol/L (3.5-5.1); TOTAL BILIRUBIN 1.2 mg/dL (<0.1-1.0); TOTAL PROTEIN 4.6 g/dL (6.4-8.2)
[2018-11-07 05:27] LABS: ABSOLUTE LYMPHOCYTES 4.3 thou/uL (0.8-5.3); ABSOLUTE NEUTROPHILS 35.9 thou/uL (1.6-8.1); METAMYELOCYTES 2 %; MYELOCYTES 2 %; TOXIC GRANULATION 2+
[2018-11-07 05:28] LABS: PLATELET ESTIMATE DECREASED
[2018-11-07 05:32] LABS: ANISOCYTOSIS 1+; HYPOCHROMASIA 1+; LARGE PLATELETS RARE; POIKILOCYTOSIS 1+
[2018-11-07 05:34] LABS: POLYCHROMASIA 1+
--- NOTE | 2018-11-07 05:59 | NUR ---
PATIENT HAS REMAINED ON CRRT THROUGHOUT SHIFT. NO ACUTE CHANGES. LEVOPHED GTT REMAINS INFUSING AT 9MCG/MIN. PRECEDEX/FENTANYL GTT'S FOR SEDATION. COPIOUS WEEPING FROM LEFT GROIN CENTRAL LINE. WILL CONTINUE TO MONITOR.
[2018-11-07 06:28] LABS: BE -5.9 mmol/L (-2 to +3); PO2 VENOUS 44.2 mmHg (35.0-45.0)
[2018-11-07 06:33] LABS: HEMOGLOBIN 8.7 gm/dL (12.0-15.0); MCH 29.2 pg (26.0-34.0); MCHC 33.5 g/dL (28.0-37.0); MCV 87.2 fL (80.0-100.0); MPV 10.8 fl. (7.2-11.1); RBC 2.98 mil/uL (4.20-5.00); RDW-CV 22.2 % (10.5-14.5)
[2018-11-07 06:34] LABS: WBC 44.9 thou/uL (4.0-11.0)
[2018-11-07 06:38] LABS: CALCIUM 8.1 mg/dL (8.5-10.1); CREATININE 1.3 mg/dL (0.6-1.3); MAGNESIUM 1.8 mg/dL (1.8-2.4); POTASSIUM 4.4 mmol/L (3.5-5.1)
[2018-11-07 10:54] LABS: HEMOGLOBIN 8.4 gm/dL (12.0-15.0); MCH 28.4 pg (26.0-34.0); MCHC 32.2 g/dL (28.0-37.0); MCV 88.2 fL (80.0-100.0); MPV 10.3 fl. (7.2-11.1); RBC 2.95 mil/uL (4.20-5.00); RDW-CV 22.2 % (10.5-14.5)
[2018-11-07 10:57] LABS: WBC 46.7 thou/uL (4.0-11.0)
[2018-11-07 11:01] LABS: CALCIUM 7.8 mg/dL (8.5-10.1); CREATININE 1.1 mg/dL (0.6-1.3); MAGNESIUM 2.5 mg/dL (1.8-2.4); POTASSIUM 4.4 mmol/L (3.5-5.1)
[2018-11-07 14:20] LABS: HEMATOCRIT 25.5 % (37.0-47.0); HEMOGLOBIN 8.4 gm/dL (12.0-15.0); MCHC 32.9 g/dL (28.0-37.0); MCV 88.1 fL (80.0-100.0); MPV 10.3 fl. (7.2-11.1); RBC 2.89 mil/uL (4.20-5.00); RDW-CV 22.6 % (10.5-14.5)
[2018-11-07 14:25] LABS: WBC 51.6 thou/uL (4.0-11.0)
[2018-11-07 14:32] LABS: CALCIUM 7.8 mg/dL (8.5-10.1); CREATININE 1.1 mg/dL (0.6-1.3); MAGNESIUM 2.3 mg/dL (1.8-2.4); PHOSPHORUS* 2.3 mg/dL (2.5-4.9); POTASSIUM 5.2 mmol/L (3.5-5.1)
[2018-11-07 18:37] LABS: HEMOGLOBIN 8.5 gm/dL (12.0-15.0)
[2018-11-07 18:40] LABS: MCH 29.1 pg (26.0-34.0); MCHC 32.6 g/dL (28.0-37.0); MCV 89.3 fL (80.0-100.0); MPV 11.7 fl. (7.2-11.1); RBC 2.91 mil/uL (4.20-5.00); RDW-CV 22.6 % (10.5-14.5)
[2018-11-07 18:46] LABS: CALCIUM 7.9 mg/dL (8.5-10.1); MAGNESIUM 2.1 mg/dL (1.8-2.4); PHOSPHORUS* 2.2 mg/dL (2.5-4.9); POTASSIUM 5.4 mmol/L (3.5-5.1)
[2018-11-07 18:47] LABS: WBC 57.8 thou/uL (4.0-11.0)
--- NOTE | 2018-11-08 00:31 | NUR ---
PT'S BP 40S/20S MAXED OUT ON LEVOPHED. DR. WANG NOTIFIED. ORDERS RECEIVED FOR DOPAMINE GTT AND NEOSYNEPHRINE GTT. PT. IS NOT TRACKING, NO PURPOSEFUL MOVEMENTS. MAXED OUT ON LEVOPHED. NEOSYNEPHRINE, AND DOPAMINE AT THIS TIME. PATIENT'S SON FREDIS NOTIFIED, MESSAGE LEFT ON BOYFRIEND DELIA'S PHONE. FREDIS INFORMED THIS RN THAT HE WILL TELL HIS SISTER AND HOPEFULLY SHE WILL BE ABLE TO MAKE IT UP TO THE HOSPITAL THIS EVENING. WEAK PULSE. IRREGULAR HEART RHYTHM AT THIS TIME, MOTTLING NOTED IN BILAT LOWER EXTREMITIES AND LEFT ARM. WILL CONTINUE TO MONITOR.
--- NOTE | 2018-11-08 01:29 | NUR ---
CRRT CLOTTED OFF AT 0100. MARVIN, PT'S DAUGHTER, HERE AT THIS TIME. PT'S SON AND OTHER FAMILY MEMBERS TO BE ARRIVING THIS EVENING. SECURITY AWARE. PT CONTINUES TO HAVE RUNS OF VTACH, THEN IRREGULAR/JUNCTIONAL. PT'S DAUGHTER AT BEDSIDE AT THIS TIME.
--- NOTE | 2018-11-08 01:54 | NUR ---
REMAINING FAMILY MEMBERS AT BEDSIDE AT THIS TIME.
[2018-11-08 02:04] VITALS: BP 84/64
[2018-11-08 03:17] VITALS: BP 57/22
[2018-11-08 04:00] VITALS: BP 110/29
--- NOTE | 2018-11-08 05:08 | NUR ---
[facility] CALLED AT THIS TIME FOR A GCS < 5.
--- NOTE | 2018-11-08 05:34 | NUR ---
[facility] REFERRAL NUMBER [phone]
[2018-11-08 06:02] LABS: MCH 29.4 pg (26.0-34.0); MCHC 29.6 g/dL (28.0-37.0); MPV 9.5 fl. (7.2-11.1); RBC 1.97 mil/uL (4.20-5.00); RDW-CV 24.1 % (10.5-14.5)
[2018-11-08 06:04] LABS: MCV 99.4 fL (80.0-100.0)
[2018-11-08 06:05] LABS: HEMOGLOBIN 5.8 gm/dL (12.0-15.0); WBC 72.2 thou/uL (4.0-11.0)
[2018-11-08 06:06] LABS: HEMATOCRIT 19.6 % (37.0-47.0)
[2018-11-08 06:23] LABS: CALCIUM 7.2 mg/dL (8.5-10.1); CREATININE 1.3 mg/dL (0.6-1.3); POTASSIUM 5.3 mmol/L (3.5-5.1)
--- NOTE | 2018-11-08 08:05 | NUR ---
Report received. Major changes overnight. Pupils blown, no gag, cough, and otherwise unresponsive. [facility] was notified overnight. CRRT clotted off. Family was called in overnight as patient is critical. Awaiting another family conference to see where we go from here.
--- NOTE | 2018-11-08 10:09 | NUR ---
Patient passed at 0947. Family at bedside. Funernal home not selected as of yet.
--- NOTE | 2018-11-08 10:31 | NUR ---
Family left, [facility] is calling placed for cremation but have not deceided. States will call back shortly.
--- NOTE | 2018-11-19 15:24 | CON ---
[address] [address] CONSULTATION Name: CUCO ALEXANDER Room: [address] [place] .R.#: [id number] Admission: 10/16/18 Attend Phys: Mindy Coley MD Discharge: 11/08/18 Date of : 42 Report #: [id number] THIS REPORT FOR: //name// CC: Leonidas Coley DATE OF SERVICE: 10/17/2018 REQUESTING PHYSICIAN: Dr. Mindy Coley. REASON FOR CONSULT: Abdominal pain, distention, nausea and vomiting. HISTORY OF PRESENT ILLNESS: This is a 78-year-old female with history of breast CA, who is receiving chemotherapy. The patient reports that she started having severe abdominal pain with symptoms of nausea and vomiting, which followed. She denies ever having this type of symptoms. Since the patient's hospitalization, the patient found to have small-bowel obstruction with evidence of transition from dilated loops of small bowel to a normal caliber. The dilated segment was 3.4 cm. The patient currently reports that she had two bowel movements. Her abdomen is less distended and the NG tube to wall suction has aspirated 400 mL since last night. PAST MEDICAL HISTORY: Significant for history of hypertension, COPD, breast CA with bilateral mastectomy, hypokalemia, esophageal varices secondary to portal hypertension/cirrhosis, ovarian cyst removal, appendectomy, ventral hernia repair, hysterectomy. ALLERGIES: INCLUDE HYDROCODONE, HYDROCHLOROTHIAZIDE, MORPHINE,. TRIAMTERENE. MEDICATIONS: Please refer to MAR. SOCIAL HISTORY: The patient has remote history of tobaccoism and quit 20 years ago. She denies alcohol use. FAMILY HISTORY: Noncontributory. PHYSICAL EXAMINATION: VITAL SIGNS: Reveal blood pressure of 111/57, respirations 19, pulse 94, temperature 98.2. LUNGS: Clear. CARDIOVASCULAR: Regular. ABDOMEN: Soft. Bowel sounds are hypoactive, but present. NEUROLOGIC: The patient is alert, oriented x 3. Note [place] [address] CONSULTATION Name: CUCO ALEXANDER Room: [address]#: [id number] Admission: 10/16/18 Attend Phys: Mindy Coley MD Discharge: 11/08/18 Date of : 42 Report #: [id number] intermittent suction. LABORATORY DATA: Reveals sodium of 140, potassium 3.7, BUN is 12, creatinine 0.7, glucose 105. AST 23, ALT 42, with alkaline phosphatase of 70, total bilirubin is 1.2. Ammonia is 37. WBC is 6.4, with hemoglobin of 11.6, platelet of 105. IMAGING: As discussed above. ASSESSMENT AND PLAN: The patient with small-bowel obstruction, which is resolving as the patient had 2 bowel movements. She also has a NG tube in place with 400 mL of aspirate since last night. We will continue monitoring the patient and keep her NG tube to intermittent suction overnight. We will clamp it in the morning and repeat KUB tomorrow afternoon. If her partial bowel obstruction was resolved, we will advance her diet slowly. <ELECTRONICALLY SIGNED> By: Brandi Hyatt MD 11/19/18 1524 1724 [id number] Hyatt MD /nt
== END 2018-11-08 09:47 | DRG 329 ==
LOC: M.ERS 19:33 → M.3W 22:48 → M.TBA-ER 22:48 → M.3W 23:43 → M.ICU 10-27 18:04
PROVIDERS: Emergency Medicine; Family Medicine; Internal Medicine; Internal Medicine Nephrology; Internal Medicine Pulmonary Disease; Surgery; ADMIT Internal Medicine
PROC: 0D9670Z Drainage of Stomach with Drainage Device, Via Natural or Artificial Opening (ICD-10-PCS; principal; 2018-10-16)
PROC: 03C93ZZ Extirpation of Matter from Right Ulnar Artery, Percutaneous Approach (ICD-10-PCS; 2018-10-27)
PROC: 0DNN0ZZ Release Sigmoid Colon, Open Approach (ICD-10-PCS; 2018-10-27)
PROC: 0DNU0ZZ Release Omentum, Open Approach (ICD-10-PCS; 2018-10-27)
PROC: 03C73ZZ Extirpation of Matter from Right Brachial Artery, Percutaneous Approach (ICD-10-PCS; 2018-10-27)
PROC: 0DNL0ZZ Release Transverse Colon, Open Approach (ICD-10-PCS; 2018-10-27)
PROC: 0DN80ZZ Release Small Intestine, Open Approach (ICD-10-PCS; 2018-10-27)
PROC: 0DB80ZZ Excision of Small Intestine, Open Approach (ICD-10-PCS; 2018-10-27)
PROC: 0DNG0ZZ Release Left Large Intestine, Open Approach (ICD-10-PCS; 2018-10-27)
PROC: 03C70ZZ Extirpation of Matter from Right Brachial Artery, Open Approach (ICD-10-PCS; 2018-10-29)
PROC: 03CB0ZZ Extirpation of Matter from Right Radial Artery, Open Approach (ICD-10-PCS; 2018-10-29)
PROC: 03C90ZZ Extirpation of Matter from Right Ulnar Artery, Open Approach (ICD-10-PCS; 2018-10-29)
PROC: 30233N1 Transfusion of Nonautologous Red Blood Cells into Peripheral Vein, Percutaneous Approach (ICD-10-PCS; 2018-10-30)
PROC: 5A12012 Performance of Cardiac Output, Single, Manual (ICD-10-PCS; 2018-10-30)
PROC: 02HV33Z Insertion of Infusion Device into Superior Vena Cava, Percutaneous Approach (ICD-10-PCS; 2018-10-31)
PROC: B54MZZA Ultrasonography of Right Upper Extremity Veins, Guidance (ICD-10-PCS; 2018-11-01)
PROC: 05HY33Z Insertion of Infusion Device into Upper Vein, Percutaneous Approach (ICD-10-PCS; 2018-11-01)
PROC: 0BH17EZ Insertion of Endotracheal Airway into Trachea, Via Natural or Artificial Opening (ICD-10-PCS; 2018-11-02)
PROC: 5A1955Z Respiratory Ventilation, Greater than 96 Consecutive Hours (ICD-10-PCS; 2018-11-02)
PROC: B54CZZA Ultrasonography of Left Lower Extremity Veins, Guidance (ICD-10-PCS; 2018-11-04)
PROC: 06HY33Z Insertion of Infusion Device into Lower Vein, Percutaneous Approach (ICD-10-PCS; 2018-11-04)
DX: K56.51 Intestinal adhesions [bands], with partial obstruction (principal); E43 Unspecified severe protein-calorie malnutrition; N17.0 Acute kidney failure with tubular necrosis; J96.02 Acute respiratory failure with hypercapnia; J96.01 Acute respiratory failure with hypoxia; J15.6 Pneumonia due to other Gram-negative bacteria; A41.9 Sepsis, unspecified organism; R65.21 Severe sepsis with septic shock; I74.2 Embolism and thrombosis of arteries of the upper extremities; J98.19 Other pulmonary collapse; C34.90 Malignant neoplasm of unspecified part of unspecified bronchus or lung; I46.9 Cardiac arrest, cause unspecified; Z66 Do not resuscitate; R31.9 Hematuria, unspecified; I73.9 Peripheral vascular disease, unspecified; R80.9 Proteinuria, unspecified; E88.09 Other disorders of plasma-protein metabolism, not elsewhere classified; E83.51 Hypocalcemia; C50.919 Malignant neoplasm of unspecified site of unspecified female breast; E77.8 Other disorders of glycoprotein metabolism; I12.9 Hypertensive chronic kidney disease with stage 1 through stage 4 chronic kidney disease, or unspecified chronic kidney disease; N18.2 Chronic kidney disease, stage 2 (mild); E87.5 Hyperkalemia; K56.7 Ileus, unspecified; E86.0 Dehydration; D69.6 Thrombocytopenia, unspecified; D64.9 Anemia, unspecified; E87.6 Hypokalemia; E83.42 Hypomagnesemia; J44.9 Chronic obstructive pulmonary disease, unspecified; K74.60 Unspecified cirrhosis of liver; Z90.710 Acquired absence of both cervix and uterus; Z90.49 Acquired absence of other specified parts of digestive tract; Z79.82 Long term (current) use of aspirin; Z88.5 Allergy status to narcotic agent; Z88.8 Allergy status to other drugs, medicaments and biological substances; Z87.891 Personal history of nicotine dependence; Z90.13 Acquired absence of bilateral breasts and nipples; Z79.899 Other long term (current) drug therapy; Z82.49 Family history of ischemic heart disease and other diseases of the circulatory system; Z68.25 Body mass index [BMI] 25.0-25.9, adult